=== PATIENT | female | born 1945 | race Caucasian/White ===

== ENCOUNTER 2023-09-10 13:33 | Inpatient (IN) | payer MEDICARE, SELFPAY ==
[2023-09-09 20:12] VITALS: BP 143/98
[2023-09-09 20:55] VITALS: BP 130/74
[2023-09-09 21:00] VITALS: BP 109/72
[2023-09-09 21:02] VITALS: BMI 33.0
[2023-09-09 21:03] VITALS: BP 130/74
[2023-09-09 22:00] VITALS: BP 122/65
--- NOTE | 2023-09-09 22:35 | ED.GENMED ---
History of Present Illness
General
Chief Complaint: Fatigue
Source: patient and family (Son)
Exam Limitations: dementia (Able to answer some questions)
Time Seen by Provider: 09/09/23 22:01
Travel History
Have you had any contact with someone who has COVID-19?: No
Do you have any symptoms of coronavirus? Fever > 100 degrees, chills, cough, shortness of breath, sore throat, loss of taste or smell, muscle aches, or headache?: No
History of Present Illness
History of Present Illness:
This is a 78 year old female that is brought in by ambulance. Son states that they have been getting Cortisone injections in patient knee's. states that she had a shot in both knee's about 5 days ago and was going ok. Then in the past 48-72 hours
the patent is very fatigued and was unable to get OOB and walk. States that she has had a cough for the past 1.5 weeks. Denies any fever, chills, chest pain, SOB, abd pain, nausea, vomiting, diarrhea, headache, dizziness, urinary burning.
Past History
Past History
ED Past Medical History: Hypercholesterolemia and Other (Dementia, )
ED Past Surgical History: Appendectomy, Gynecological (hysterectomy), Orthopedic (Hip replacement) and Other (Lasik)
Social History
Tobacco: Former smoker
Alcohol: Occasional
Personal:
Living: with family
Review of Systems
Review of Systems
Other source history: family
All Other Systems: ROS reviewed and negative except as documented in HPI and ROS
Constitutional: Reports no symptoms; Denies fever or chills
EENT: Reports no symptoms
Respiratory: Reports cough; Denies trouble breathing
Cardiac: Reports no symptoms; Denies chest pain
ABD/GI: Reports no symptoms; Denies abdominal pain, nausea, vomiting or diarrhea
: Reports no symptoms; Denies dysuria, frequency or urgency
Musculoskeletal: Reports other (Difficulty walking)
Skin: Reports no symptoms
Neurological: Reports no symptoms; Denies dizzy or headache
Psychiatric: Reports no symptoms
Phy Exam
General Physical Exam
General Presentation: no apparent distress
General age: appears stated age
General Skin: warm and dry
General Habitus: elderly
General Mental: usual mental status
General Hydration: appears well hydrated
ENT Exam
ENT Exam: TM's normal, pharynx normal and neck supple
Eye Exam
Eye Exam: EOMI
Cardiovascular Exam
Cardiovascular Exam: regular rate/rhythm, no edema and normal peripheral pulses
Pulmonary Exam
Pulmonary Exam: no respiratory distress, chest non tender, no rhonchi and other (occasional exp wheezing noted with fine crackles at right base, Dry cough noted)
Gastrointestinal Exam
Gastrointestinal Exam: normal bowel sounds, non tender, soft, no organomegaly, no pulsatile mass and non distended
Musculoskeletal Exam
Musculoskeletal Exam: full ROM, no edema and other (Negative for discomfort with flexion of the knee's)
Skin Exam
Skin Exam: normal color, warm/dry, no rash and no petechia
Psychiatric Exam
Psychiatric Exam: normal mood/affect
Course
Orders/Labs/Results
Orders:
Orders
09/09/23 22:34
Urinalysis Reflex To Culture Urgent
CR Chest - 2 Views Urgent
Comment:
Reason For Exam: Cough
09/09/23 22:41
Electrocardiogram (*1) Urgent
Reason for Study: Fatigue / Weakness
EKG- Treatment ONCE
COVID-19 Antigen Urgent
Source: Nasal Swab
Complete Blood Count/With Diff Urgent
Comprehensive Metabolic Panel Urgent
Troponin I Urgent
Abnormal Lab Results
09/09/23
22:41
WBC 14.0 H 10^3/uL
(4.8-10.8)
RBC 4.03 L 10^6/uL
(4.20-5.40)
Hgb 11.6 L g/dL
(12.0-16.0)
Hct 34.4 L %
(37.0-47.0)
Abs Immat Gran (auto) 0.1 H 10^3/uL
(0-0.05)
Absolute Neuts (auto) 12.0 H 10^3/uL
(1.4-6.5)
Absolute Lymphs (auto) 1.0 L 10^3/uL
(1.2-3.4)
Absolute Monos (auto) 0.8 H 10^3/uL
(0.1-0.6)
Neutrophils % 85.4 H %
(42.2-75.2)
Lymphocytes % 7.4 L %
(20.5-51.1)
Sodium 131 L mmol/L
(135-145)
AST 40 H U/L
(14-36)
Alkaline Phosphatase 152 H U/L
(38-126)
09/09/23 22:41
09/09/23 22:41
Leukocytosis, H/H slightly low. Sodium slightly low. AST elevation. Alk phos mildly elevated. COVID negative,
Vital Signs
Initial and Last Documented VS:
Initial Vital Signs
Temp Pulse Resp BP Pulse Ox
98.5 F 92 18 143/98 93
09/09/23 20:12 09/09/23 20:12 09/09/23 20:12 09/09/23 20:12 09/09/23 20:12
Last Documented Vital Signs
Temp Pulse Resp BP Pulse Ox
98.5 F 80 25 122/65 92
09/09/23 20:12 09/09/23 22:15 09/09/23 22:15 09/09/23 22:00 09/09/23 21:30
MDM/Problems Addressed
Differential Diagnosis Includes:
COVID, PNA, UTI
MDM/Problems Addressed:
This is a 78 year old female that comes in with c/o difficulty walking. Son states that she had injection both knee's 5 days ago and was going ok. Then in the past 48-72 hours the patient has now been unable to walk and is very fatigued
Will check labs. Urine. COVID and get chest x-ray.
Back into see patient and family. Explained that she has a left lower lobe Pneumonia. The fact that patient was unable to get around and not able to walk, will admit patient as patient lives with and he is unable to lift patient. Will start
IV antibiotics. Will notify Hospitalist.
Chronic conditions affecting care:
NA
Acute Exacerbation and/or Progression of Chronic Illness:
NA
*Radiology
Radiology exam reviewed: preliminary read by ED provider (Chest- Left lower lobe Pneumonia. )
*Pulse Oximetry
Patient hypoxic: no
*EKG
Interpreted by ED Provider?: Yes
Heart Rate: 77
Rate: normal
Rhythm: sinus
Honaker: normal axis
Interval: normal interval
QRS Pattern: normal QRS
Ischemia: no ischemia
*Power Plant Supervisor Interpretation
Rate: Power Plant Supervisor- N/A
*Critical Care Note
Total Time (30-74mins, 75-104mins- exclusive of procedures): Not Applicable
ED Attending Note
-
Portions of this chart may have been created with voice recognition software.� Occasional wrong word or��sound alike� substitutions may have occurred due to the inherent limitations of voice recognition software.
Discharge Plan
Departure
Patient Disposition: Admit
Date of Disposition: 09/10/23
Time of Disposition: 00:25
Admit to: Med/Surg
Presentation/result/management discussed w/ accepting MD/DO: Hospitalist
Patient with high blood pressure during this ER visit?: No
Condition: Good
Covid-19: Negative COVID-19
Discharge Problem:
Left lower lobe pneumonia, Weakness
Referrals:
Colden,Sindhu Estefani, DOUGH CUTTER [Family Provider] -
Interventions
Interventions:
*Risk Screen - Suicide Last Done: 09/09/23 20:12
*General Assessment Last Done: 09/09/23 20:12
*Neglect/Abuse Screening Last Done: 09/09/23 20:12
ED- Fall Risk Assessment Last Done: 09/09/23 20:12
*ED COVID-19 Vaccine History Last Done: 09/09/23 20:12
[2023-09-09 22:52] LABS: % Basophils 0.3 % (0-2); % Eosinophils 0.8 % (0-6); % Immature Granulocytes 0.5 % (0-0.5); % Lymphocytes 7.4 % (20.5-51.1); % Monocytes 5.6 % (1.7-9.3); % Neutrophils 85.4 % (42.2-75.2); Absolute Eosinophils 0.1 10^3/uL (0-0.7); Absolute Immature Granulocytes 0.1 10^3/uL (0-0.05); Absolute Monocytes 0.8 10^3/uL (0.1-0.6); Hematocrit 34.4 % (37.0-47.0); Hemoglobin 11.6 g/dL (12.0-16.0); Mean Corp Hgb Conc. 33.7 g/dL (33.0-37.0); Mean Corpuscular Hgb 28.8 pg (27.0-31.0); Mean Corpuscular Volume 85.4 fL (81.0-99.0); Mean Platelet Volume 10.3 fL (7.4-10.4); Nucleated Red Blood Cells % 0 %; Platelet Count 367 10^3/uL (130-400); Red Blood Cell Count 4.03 10^6/uL (4.20-5.40); Red Cell Dist. Width 14.1 % (11.5-14.5)
[2023-09-09 23:00] VITALS: BP 108/53
[2023-09-09 23:02] LABS: ALT (SGPT) 21 U/L (0-35); AST (SGOT) 40 U/L (14-36); Albumin 3.7 g/dl (3.5-5.0); Alkaline Phosphatase 152 U/L (38-126); Blood Urea Nitrogen 12 mg/dl (7-17); Calcium 9.1 mg/dl (8.4-10.2); Carbon Dioxide 22 mmol/L (22-30); Chloride 101 mmol/L (98-107); Estimated Creatinine Clearance 72 ml/min; Glucose 81 mg/dl (70-99); Sodium 131 mmol/L (135-145); Total Bilirubin 0.7 mg/dl (0.2-1.3); Total Protein 6.4 g/dl (6.3-8.2); eGFR > 60.00
[2023-09-09 23:05] LABS: COVID-19 Antigen Negative (Negative)
[2023-09-10] VITALS (14 sets, daily range): BP systolic 62–144; BP diastolic 44–101; PULSE 81; O2SAT 95; BMI 34.2
[2023-09-10] MEDS: ROCEPHIN 1000 MG IV (00:53)
[2023-09-10 01:10] LABS: Lactic Acid 0.8 mmol/L (0.7-2.0)
[2023-09-10] MEDS: ZITHROMAX INFUSION 250 IV (01:10)
[2023-09-10 01:20] LABS: Troponin I < 0.012 ng/ml
--- NOTE | 2023-09-10 04:03 | HPS.HSE ---
Family Physician
-
Family Physician: Sindhu Conley
Chief Complaint
-
Fatigue
History of Present Illness
The patient is a 78 yo woman with PMH significant for dementia and HLD, who presents to ED due to worsening fatigue and unable to ambulate due to generalized weakness. History mostly obtained from ED provider as son is no longer in the room
currently. Patient has dementia, recently had cortisone injections in knees. She has had a cough for the past 1.5 weeks. Unable to obtain further ROS at this time. No known fever, chills, CP, SOB, n/v/d, per review of chart and patient without
complaints at this time.
Medical History
Past Medical History
Past Medical History: Reports Hypercholesterolemia and Other (Dementia)
Past Surgical History: Reports Appendectomy, Gynocological (HUYEN), Orthopedic (Hip replacement) and Other (Lasik)
Social History
Tobacco: Former Smoker
Alcohol: Occasional
Personal:
Living: With Family
Family History
Family History: Not pertinent
Allergies / Home Medications
Allergies reflects when Allergies were last updated in [facility].
Home Medications with original date entered in [facility]
Allergy/Medication List:
Allergies
Allergy/AdvReac Type Severity Reaction Status Date / Time
No Known Allergies Allergy Unverified 09/09/23 20:10
Cannot perform med rec at this time, patient does not know medications
Review of Systems
-
Unable to obtain full review of systems at this time due to: Dementia
Physical Exam
Vital Signs
Vital Signs
Temp Pulse Resp BP Pulse Ox
99.5 F 81 22 108/53 92
09/10/23 00:09 09/10/23 03:30 09/10/23 03:30 09/09/23 23:00 09/10/23 02:45
Physical Exam
General: Well Developed, Well Nourished and No Apparent Distress
HEENT: NormoCephalic, Anicteric and Moist mucous membranes
Respiratory: Clear
Cardiac: S1/S2 and Regular Rhythm
GI: Soft, Non Tender and Non Distended
Musculoskeletal: No Clubbing, No Cyanosis and No Edema
Skin: Warm and Dry
Neuro: Awake and Alert
Psych: Calm
Laboratory Results
-
09/09/23 22:41
09/09/23 22:41
Laboratory Results
Lactic Acid 0.8 mmol/L (0.7-2.0) 09/10/23 00:24
Total Bilirubin 0.7 mg/dl (0.2-1.3) 09/09/23 22:41
AST 40 U/L (14-36) H 09/09/23 22:41
ALT 21 U/L (0-35) 09/09/23 22:41
Alkaline Phosphatase 152 U/L (38-126) H 09/09/23 22:41
Troponin I < 0.012 ng/ml 09/10/23 00:24
Impression/Plan
-
IMPRESSION:
#LLL Pneumonia, community acquired, associated with weakness
-WBC 14.0
-IV abx
-O2 as needed
-supportive care
-cultures
#Ambulatory dysfunction
-PT evaluation
#Dementia
Medication reconciliation will have to completed in the am
DVT proph
Full Code at this time
[2023-09-10] MEDS: NSS 1000 IV ×2 (06:00→17:44)
[2023-09-10 06:21] LABS: % Basophils 0.4 % (0-2); % Eosinophils 1.4 % (0-6); % Immature Granulocytes 0.6 % (0-0.5); % Lymphocytes 14.7 % (20.5-51.1); % Neutrophils 75.9 % (42.2-75.2); Absolute Eosinophils 0.1 10^3/uL (0-0.7); Absolute Immature Granulocytes 0.1 10^3/uL (0-0.05); Absolute Lymphocytes 1.5 10^3/uL (1.2-3.4); Absolute Monocytes 0.7 10^3/uL (0.1-0.6); Absolute Neutrophils 7.8 10^3/uL (1.4-6.5); Hematocrit 32.9 % (37.0-47.0); Hemoglobin 10.7 g/dL (12.0-16.0); Mean Corp Hgb Conc. 32.5 g/dL (33.0-37.0); Mean Corpuscular Hgb 27.9 pg (27.0-31.0); Mean Corpuscular Volume 85.9 fL (81.0-99.0); Mean Platelet Volume 9.6 fL (7.4-10.4); Nucleated Red Blood Cells % 0 %; Platelet Count 337 10^3/uL (130-400); Red Blood Cell Count 3.83 10^6/uL (4.20-5.40); Red Cell Dist. Width 14.2 % (11.5-14.5); White Blood Cell Count 10.3 10^3/uL (4.8-10.8)
[2023-09-10 06:45] LABS: ALT (SGPT) 19 U/L (0-35); AST (SGOT) 42 U/L (14-36); Albumin 3.1 g/dl (3.5-5.0); Alkaline Phosphatase 121 U/L (38-126); Blood Urea Nitrogen 13 mg/dl (7-17); Calcium 9.1 mg/dl (8.4-10.2); Carbon Dioxide 20 mmol/L (22-30); Chloride 103 mmol/L (98-107); Estimated Creatinine Clearance 84 ml/min; Glucose 93 mg/dl (70-99); Potassium 3.8 mmol/L (3.5-5.1); Sodium 134 mmol/L (135-145); Total Bilirubin 0.6 mg/dl (0.2-1.3); Total Protein 5.7 g/dl (6.3-8.2); eGFR > 60.00
--- NOTE | 2023-09-10 08:00 | EDRN ---
the pt was received from previous wellness trainer RN, the pt is resting in stretcher in the lowest position, side rails up x2, call christine within reach, HOB slightly elevated, no s/s of distress, VS WNL, IVF running, PIV flushed with positive blood
return, awaiting to get a bed on the floor for the pt, will continue to monitor the pt closely
--- NOTE | 2023-09-10 08:22 | PHANOTE ---
Patient unable to complete medication review. Contacted primary contact, daughter, to review and update medication list. Medications verified with Dr. Braga and eCW medication list from PCP visit.
--- NOTE | 2023-09-10 10:48 | EDRN ---
this RN entered the pts room and asked if the pt needed anything, the pt stated that the, 'thinks i went to the bathroom', this RN and Vi RN cleaned the pt, the pt urinated and had a medium sized bowel movement, the pts gown, linens, and pad
were changed, the pt was repositioned in the stretcher for comfort, no s/s of distress, no c/o pain, no c/o chest pain, no c/o SOB, VS WNL, will continue to monitor the pt closely
--- NOTE | 2023-09-10 10:55 | EDRN ---
speech therapy currently at the pts bedside
--- NOTE | 2023-09-10 11:16 | PTOTSP ---
Speech Therapy Evaluation:
Initial speech therapy assessment completed. Patient presented with oropharyngeal swallow that was within functional limits at bedside with no overt s/s aspiration observed.
Recommend:
1) Continue regular solid, thin liquid diet
2) Meds whole with thins as tolerated
3) General aspiration precautions
4) ST to f/u pending hospitalization to ensure diet tolerance given PNA concern on recent imaging
--- NOTE | 2023-09-10 12:57 | EDRN ---
this RN ordered lunch for the pt and she is stating to this RN, 'I don't want lunch i am not hungry don't bring food in here', the pt is resting in stretcher in the lowest position, side rails up x2, call christine within reach, HOB elevated, no s/s of
distress, VS WNL, will continue to monitor the pt closely
--- NOTE | 2023-09-10 14:56 | EDRN ---
the receiving unit was called and notified that paper report was going to be tubed up
--- NOTE | 2023-09-10 15:02 | W.PN.HOSP.TC ---
Addendum entered and electronically signed by Jesús Crabtree MD 09/10/23 18:20:
Patient seen and examined
Discussed with resident
Agree with assessment and plan
Impression/plan:
78 years old with advanced dementia, nonverbal presents with left lower lobe pneumonia. Community-acquired versus reasonable aspiration risk.
Stable respiratory status with no requirements for supplemental oxygen.
Stable hemodynamically with no evidence of systemic infection
Continue antibiotics ceftriaxone/Zithromax.
Speech and swallow evaluation.
Dementia
Ambulatory dysfunction.
Physical therapy evaluation.
Original Note:
Today's Communication/Plan
-
See A/P
Continue Abx
Speech therapy Eval
PT eval
Assessment / Plan
Assessment / Plan
Assessment / Plan
Impression:
Presentation with cough and fatigue
Ambulatory dysfunction
Pneumonia, community acquired
Conditions Prior to Admission
Hypothyroidism
Hypercholesterolemia
Dementia
Plan
-Left Lower Lobe Pneumonia, Community acquired
IV antibiotics
Supportive Care
Cultures
Pulse Ox on presentation 93, O2 as needed
-Aspiration Risk
Speech therapy Evaluation
Aspiration Precautions
-Ambulatory Dysfunction
PT Evaluation
-Hypercholesterolemia
Continue Rosuvastatin
-Hypothyroidism
Continue Levothyroxine
Full Code
DVT prophylaxis Levonox
Anticipated Discharge: 24 - 48 hours
Subjective/Interval History
-
Date of Service: September 10, 2023
Objective Data
-
Labs:
Laboratory Results
09/10/23
06:01
WBC 10.3
Hgb 10.7 L
Hct 32.9 L
Plt Count 337
Sodium 134 L
Potassium 3.8
Chloride 103
Carbon Dioxide 20 L
BUN 13
Creatinine 0.6
Glucose 93
Calcium 9.1
Total Bilirubin 0.6
AST 42 H
ALT 19
Alkaline Phosphatase 121
Vital Signs:
Vital Signs
Temp Pulse Resp BP Pulse Ox
97.8 F 86 16 144/61 99
09/10/23 14:56 09/10/23 14:56 09/10/23 14:56 09/10/23 14:56 09/10/23 14:56
Review of Systems
-
Unable to obtain full review of systems at this time due to: Dementia
Physical Exam
-
General: Well Developed, Well Nourished and No Apparent Distress
HEENT: Normocephalic, Atraumatic and Moist Mucous Membranes
Respiratory: Clear to Auscultation
Cardiac: Regular Rhythm and S1/S2
GI: Soft, Nontender and Nondistended
Musculoskeletal: No Clubbing, No Cyanosis and No Edema
Skin: Warm and Dry
Neuro: Awake and Alert
Psych: Calm
[2023-09-10] MEDS: LOVENOX 40 MG SC (17:34)
[2023-09-11] MEDS: ROCEPHIN 1000 MG IV (00:42)
[2023-09-11] MEDS: STERILE WATER FOR INJECTION 10 ML IV (00:42)
[2023-09-11] MEDS: ZITHROMAX INFUSION 250 IV (03:26)
[2023-09-11 07:30] VITALS: BP 150/92
[2023-09-11 07:50] LABS: % Basophils 0.6 % (0-2); % Eosinophils 2.4 % (0-6); % Immature Granulocytes 0.8 % (0-0.5); % Lymphocytes 16.2 % (20.5-51.1); % Monocytes 6.2 % (1.7-9.3); % Neutrophils 73.8 % (42.2-75.2); Absolute Eosinophils 0.2 10^3/uL (0-0.7); Absolute Immature Granulocytes 0.1 10^3/uL (0-0.05); Absolute Lymphocytes 1.2 10^3/uL (1.2-3.4); Absolute Monocytes 0.4 10^3/uL (0.1-0.6); Absolute Neutrophils 5.2 10^3/uL (1.4-6.5); Hematocrit 30.8 % (37.0-47.0); Hemoglobin 9.9 g/dL (12.0-16.0); Mean Corp Hgb Conc. 32.1 g/dL (33.0-37.0); Mean Corpuscular Hgb 28.4 pg (27.0-31.0); Mean Corpuscular Volume 88.3 fL (81.0-99.0); Nucleated Red Blood Cells % 0 %; Platelet Count 335 10^3/uL (130-400); Red Blood Cell Count 3.49 10^6/uL (4.20-5.40); Red Cell Dist. Width 14.1 % (11.5-14.5); White Blood Cell Count 7.1 10^3/uL (4.8-10.8)
[2023-09-11 08:28] LABS: Blood Urea Nitrogen 11 mg/dl (7-17); Calcium 8.7 mg/dl (8.4-10.2); Carbon Dioxide 20 mmol/L (22-30); Chloride 107 mmol/L (98-107); Estimated Creatinine Clearance 80 ml/min; Glucose 100 mg/dl (70-99); Potassium 3.5 mmol/L (3.5-5.1); Sodium 134 mmol/L (135-145); eGFR > 60.00
[2023-09-11] MEDS: NSS 1000 IV (10:44)
--- NOTE | 2023-09-11 10:51 | W.PN.HOSP.TC ---
Addendum entered and electronically signed by Jesús Crabtree MD 09/11/23 17:51:
Patient seen and examined
Discussed with resident
Discussed with nursing and [id number] as well as son over the phone.
Pneumonia, community-acquired.
Stable respiratory status
No evidence for systemic disease or sepsis.
Continue antibiotics ceftriaxone/Zithromax with plan to transition to oral regimen to complete 5 to 7 days course of therapy.
Speech and swallow evaluation noted. Diet has been advanced with aspiration precautions.
Physical therapy evaluation. Overall given acute infection as well as cognitive status would benefit from [facility] facility debilitation.
Original Note:
Today's Communication/Plan
-
Patient tolerating Oral Diet.
Switch to Zithromax 500mg PO daily today.
Continue IV ceftriaxone for another day.
Stable hemodynamically with no evidence of systemic infection.
Assessment / Plan
Assessment / Plan
Assessment / Plan
Impression:
Presentation with cough and fatigue
Ambulatory dysfunction
Pneumonia, community acquired
Conditions Prior to Admission
Hypothyroidism
Hypercholesterolemia
Dementia
Plan
-Left Lower Lobe Pneumonia, Community acquired
Switch to Oral Zithromax.
Continue IV ceftriaxone for another day.
Supportive Care
Cultures
Stable respiratory status with no requirements for supplemental oxygen.
-Aspiration Risk
Speech therapy Evaluation
Aspiration Precautions
-Dementia
-Ambulatory Dysfunction
PT Evaluation
-Hypercholesterolemia
Continue Rosuvastatin
-Hypothyroidism
Continue Levothyroxine
Full Code
DVT prophylaxis Levonox
Anticipated Discharge: > 48 hours
Subjective/Interval History
-
Date of Service: September 11, 2023
Objective Data
-
Labs:
Laboratory Results
09/11/23
06:35
WBC 7.1
Hgb 9.9 L
Hct 30.8 L
Plt Count 335
Sodium 134 L
Potassium 3.5
Chloride 107
Carbon Dioxide 20 L
BUN 11
Creatinine 0.6
Glucose 100 H
Calcium 8.7
Vital Signs:
Vital Signs
Temp Pulse Resp BP Pulse Ox
98.0 F 73 16 150/92 96
09/11/23 07:30 09/11/23 07:30 09/11/23 07:30 09/11/23 07:30 09/11/23 07:30
I&O
09/10/23 09/11/23 09/12/23
06:59 06:59 06:59
Intake Total 240 / 240 1290 / 1290
Balance 240 / 240 1290 / 1290
Review of Systems
-
Unable to obtain full review of systems at this time due to: Dementia
Physical Exam
-
General: Well Developed, Well Nourished and No Apparent Distress
HEENT: Normocephalic, Atraumatic and Moist Mucous Membranes
Respiratory: Clear to Auscultation
Cardiac: Regular Rhythm and S1/S2
GI: Soft, Nontender and Nondistended
Musculoskeletal: No Clubbing, No Cyanosis and No Edema
Skin: Warm and Dry
Neuro: Awake and Alert
Psych: Calm
[2023-09-11 11:51] VITALS: BP 132/71; PULSE 69
[2023-09-11 15:23] VITALS: BP 128/92
--- NOTE | 2023-09-11 16:20 | CM ---
slot shift manager reviewed patient's chart and met with patient and patient lives [facility] her [facility] Patient was independent with adl's and ambulation, patient has a cane and walker that she rarely used,
patient's spouse has dementia and Parkinson's, disability case manager spoke with patient and daughter in law and recommendation is for skilled placement options reviewed with patient and she has selected [facility].
Plan; Skilled placement at [facility].
[2023-09-11] MEDS: LOVENOX 40 MG SC (19:04)
[2023-09-11 23:17] VITALS: BP 124/75
[2023-09-12] MEDS: STERILE WATER FOR INJECTION 10 ML IV ×2 (00:01→23:46)
[2023-09-12] MEDS: ROCEPHIN 1000 MG IV ×2 (00:01→23:46)
[2023-09-12] MEDS: SYNTHROID 88 MCG PO (05:45)
[2023-09-12 07:30] VITALS: BP 140/76
[2023-09-12] MEDS: DESENEX/MITRAZOL/ZEASORB 1 APPLIC TOPICAL ×2 (09:40→21:04)
[2023-09-12] MEDS: VITAMIN D3 (cholecalciferol) 25 MCG PO (09:49)
[2023-09-12] MEDS: ZITHROMAX 500 MG PO (09:49)
[2023-09-12] MEDS: CELEXA 20 MG PO (09:50)
[2023-09-12] MEDS: THERAGRAN 1 TABLET PO (09:50)
[2023-09-12] MEDS: CRESTOR 20 MG PO (09:50)
[2023-09-12] MEDS: NAMENDA 5 MG PO (09:50)
[2023-09-12] MEDS: TYLENOL 650 MG PO (12:36)
--- NOTE | 2023-09-12 12:36 | CM ---
Plan is for skilled placement at [facility], residential case manager reached out to [facility] and still waiting on a determination from [facility], patient will then need Auth for skilled placement.
Plan; Skilled placement at [facility] if accepted.
[2023-09-12 15:55] VITALS: BP 143/90
--- NOTE | 2023-09-12 17:59 | W.PN.HOSP.TC ---
Today's Communication/Plan
-
Continue antibiotics
Ongoing disposition efforts with plan for custodial facility rehab
Assessment / Plan
Assessment / Plan
Assessment / Plan
Impression:
Presentation with cough and fatigue
Ambulatory dysfunction
Pneumonia, community acquired
Conditions Prior to Admission
Hypothyroidism
Hypercholesterolemia
Dementia
Plan
-Left Lower Lobe Pneumonia, Community acquired
Switch to Oral Zithromax.
Continue IV ceftriaxone for another day.
Supportive Care
Cultures
Stable respiratory status with no requirements for supplemental oxygen.
-Aspiration Risk
Speech therapy Evaluation
Aspiration Precautions
-Dementia
-Ambulatory Dysfunction
PT Evaluation
-Hypercholesterolemia
Continue Rosuvastatin
-Hypothyroidism
Continue Levothyroxine
Full Code
DVT prophylaxis Levonox
Anticipated Discharge: Within 24 hours
Subjective/Interval History
-
Date of Service: September 12, 2023
Objective Data
-
Vital Signs:
Vital Signs
Temp Pulse Resp BP Pulse Ox
98.3 F 75 18 143/90 96
09/12/23 15:55 09/12/23 15:55 09/12/23 15:55 09/12/23 15:55 09/12/23 15:55
I&O
09/11/23 09/12/23 09/13/23
06:59 06:59 06:59
Intake Total 240 / 240 2069
Balance 240 / 240 2069
Physical Exam
-
General: Well Developed and No Apparent Distress
HEENT: Normocephalic, Atraumatic and Moist Mucous Membranes
Respiratory: Clear to Auscultation
Cardiac: Regular Rhythm and S1/S2; Negative Murmur, Rub or Gallop
GI: Soft, Nontender, Nondistended and Normal Bowel Sounds; Negative Organomegaly
Rectal: Deferred by Provider
Musculoskeletal: No Clubbing, No Cyanosis and No Edema
Skin: Negative Rash
Neuro: Nonfocal/Grossly Intact
[2023-09-12] MEDS: LOVENOX 40 MG SC (18:20)
[2023-09-12 23:00] VITALS: BP 131/64
[2023-09-13] MEDS: SYNTHROID 88 MCG PO (06:03)
[2023-09-13 07:30] VITALS: BP 150/64
[2023-09-13] MEDS: NAMENDA 5 MG PO (09:11)
[2023-09-13] MEDS: CRESTOR 20 MG PO (09:11)
[2023-09-13] MEDS: ZITHROMAX 500 MG PO (09:11)
[2023-09-13] MEDS: CELEXA 20 MG PO (09:12)
[2023-09-13] MEDS: VITAMIN D3 (cholecalciferol) 25 MCG PO (09:12)
[2023-09-13] MEDS: DESENEX/MITRAZOL/ZEASORB 1 APPLIC TOPICAL (09:12)
[2023-09-13] MEDS: THERAGRAN 1 TABLET PO (09:12)
--- NOTE | 2023-09-13 12:02 | CM ---
Addendum entered by Anaya Rahman 09/13/23 13:57:
[facility]
Original Note:
lab manager received Auth from [facility] patient has been approved for 5 days skilled, 09/13- NRD 09/17, Auth [id number], follow up with Sindhu Jacinto, , patient's daughter in law to assist with transport.
[facility]
Report [id number]
--- NOTE | 2023-09-13 12:16 | W.DS.TRANS ---
DC Summary - Enterprise Application Analyst
-
Discharge Instructions:
Discharge Diagnosis/Procedures Pneumonia
Diet Regular
Instructions:
Stand-Alone Forms:
Changes to Home Medications: No
Discharge Medications:
DC Medications w/original date entered in [facility]
cholecalciferol (vitamin D3) 25 mcg (1,000 unit) capsule (Vitamin D3) 25 mcg PO DAILY supplement 09/10/23
citalopram 20 mg tablet 20 mg PO DAILY Mental Health/Anxiety 09/10/23
ferrous sulfate 325 mg (65 mg iron) tablet 325 mg PO DAILY supplement 09/10/23
levothyroxine 88 mcg tablet 88 mcg PO DAILY@0700 hypothyroidism 09/10/23
memantine 5 mg tablet 5 mg PO DAILY cognition 09/10/23
methylcellulose (laxative) 500 mg tablet (Citrucel) 500 mg PO DAILY constipation 09/10/23
multivitamin-ferrous fumarate-folic acid 18 mg-400 mcg tablet (Centrum Women) 1 tab PO DAILY supplement 09/10/23
rosuvastatin 20 mg tablet 20 mg PO DAILY high cholesterol 09/10/23
azithromycin 250 mg tablet 500 mg PO DAILY #3 tabs 09/13/23
cefuroxime axetil 500 mg tablet 500 mg PO Q12H #6 tabs 09/13/23
Home Medication Changes
Pending Results: No
[2023-09-13] MEDS: FLUZONE HIGH-DOSE QUAD 2023-24 0.699999999999999956 ML IM (12:46)
--- NOTE | 2023-09-13 14:30 | W.DCSUMMARY ---
Documented by User: Milagro Cantu MD, Resident 09/13/23 14:47
Discharge Summary
Discharge Data
Date of Admission: 09/10/23
Date of Discharge: 09/13/23
-
Pending Results: No
Hospital Course
DISCHARGE DIAGNOSIS
1. Left Lower Lobe Pneumonia
2. Hypercholesterolemia
3. Hypothyroidism
4. Dementia
BRIEF HOSPITAL COURSE: This is a 78year old female with PMH significant for dementia and Hypercholesterolemia who presented to ED with her son for worsening fatigue, generalized weakness and cough. Her son states that patient has had an ongoing
cough for the past 1.5 weeks. Patient denies any fever, chills, shortness of breath, nausea and vomiting. Patient has dementia and recently had cortisone injections in the knees 5 days before presenting to the ED. On admission, patient was afebrile
and hemodynamically stable with no requirements for supplemental oxygen. Evaluation with Chest Xray showed parenchymal opacity within the left lower lobe, which very likely represents pneumonia. Patient was started antibiotics Ceftriaxone/Zithromax
with improvement in symptoms over the course of her hospital stay.
Hypercholesterolemia: The patient will be continued on current medication regimen including Rosuvastatin
Hypothyroidism: The patient will be continued on current medication regimen including Levothyroxine.
Next, on the date of discharge, the patient's vital signs: Temperature is 99.1 F, Heart Rate is 75 , Blood pressure 150/64, Respiratory rate 18, Pulse Ox is 95 on room air
PHYSICAL EXAMINATION:� She is alert, awake. Head is atraumatic, normocephalic. Neck is supple. Chest is clear to auscultation. Heart is regular without gallops or murmurs. Abdomen is soft, nondistended with normal bowel sounds. Extremities show no
peripheral edema.
Discharge Plan
-
Patient Disposition: Home (Routine Discharge)
Discharge Diagnosis/Procedures: Pneumonia
Condition: Good
Diet: Regular
Referrals:
Sindhu Conley CRNP [Family Provider] -
Prescriptions:
New
azithromycin 250 mg Tablet
500 mg PO DAILY Qty: 3 0RF
cefuroxime axetil 500 mg tablet
500 mg PO Q12H Qty: 6 0RF
Continued
levothyroxine 88 mcg tablet
88 mcg PO DAILY@0700
citalopram 20 mg tablet
20 mg PO DAILY
ferrous sulfate 325 mg (65 mg iron) Tablet
325 mg PO DAILY
Citrucel 500 mg Tablet
500 mg PO DAILY
cholecalciferol (vitamin D3) [Vitamin D3] 25 mcg (1,000 unit) Capsule
25 mcg PO DAILY
rosuvastatin 20 mg tablet
20 mg PO DAILY
memantine 5 mg tablet
5 mg PO DAILY
Centrum Women 18-400 mg-mcg Tablet
1 tab PO DAILY
Discontinued
meloxicam 15 mg tablet
15 mg PO DAILY
Discharge Orders:
Discharge Patient (As Directed); Ordered 09/13/23
Ordered By: Jesús Crabtree
Discharge Date and Time
Discharge Date/Time: 09/13/23 17:45

Documented by User: Jesús Crabtree MD 09/19/23 14:52
Discharge Summary
Discharge Data
Date of Admission: 09/10/23
Date of Discharge: 09/19/23
Hospital Course
DISCHARGE DIAGNOSIS
1. Left Lower Lobe Pneumonia
2. Hypercholesterolemia
3. Hypothyroidism
4. Dementia
5. Hyponatremia
BRIEF HOSPITAL COURSE: This is a 78year old female with PMH significant for dementia and Hypercholesterolemia who presented to ED with her son for worsening fatigue, generalized weakness and cough. Her son states that patient has had an ongoing
cough for the past 1.5 weeks. Patient denies any fever, chills, shortness of breath, nausea and vomiting. Patient has dementia and recently had cortisone injections in the knees 5 days before presenting to the ED. On admission, patient was afebrile
and hemodynamically stable with no requirements for supplemental oxygen. Evaluation with Chest Xray showed parenchymal opacity within the left lower lobe, which very likely represents pneumonia. Patient was started antibiotics Ceftriaxone/Zithromax
with improvement in symptoms over the course of her hospital stay.
Hypercholesterolemia: The patient will be continued on current medication regimen including Rosuvastatin
Hypothyroidism: The patient will be continued on current medication regimen including Levothyroxine.
Next, on the date of discharge, the patient's vital signs: Temperature is 99.1 F, Heart Rate is 75 , Blood pressure 150/64, Respiratory rate 18, Pulse Ox is 95 on room air
PHYSICAL EXAMINATION:� She is alert, awake. Head is atraumatic, normocephalic. Neck is supple. Chest is clear to auscultation. Heart is regular without gallops or murmurs. Abdomen is soft, nondistended with normal bowel sounds. Extremities show no
peripheral edema.
Discharge Plan
-
Patient Disposition: Home (Routine Discharge)
Discharge Diagnosis/Procedures: Pneumonia
Condition: Good
Diet: Regular
Referrals:
Sindhu Conley CRNP [Family Provider] -
Prescriptions:
New
azithromycin 250 mg Tablet
500 mg PO DAILY Qty: 3 0RF
cefuroxime axetil 500 mg tablet
500 mg PO Q12H Qty: 6 0RF
Continued
levothyroxine 88 mcg tablet
88 mcg PO DAILY@0700
citalopram 20 mg tablet
20 mg PO DAILY
ferrous sulfate 325 mg (65 mg iron) Tablet
325 mg PO DAILY
Citrucel 500 mg Tablet
500 mg PO DAILY
cholecalciferol (vitamin D3) [Vitamin D3] 25 mcg (1,000 unit) Capsule
25 mcg PO DAILY
rosuvastatin 20 mg tablet
20 mg PO DAILY
memantine 5 mg tablet
5 mg PO DAILY
Centrum Women 18-400 mg-mcg Tablet
1 tab PO DAILY
Discontinued
meloxicam 15 mg tablet
15 mg PO DAILY
Discharge Orders:
Discharge Patient (As Directed); Ordered 09/13/23
Ordered By: Jesús Crabtree
Discharge Date and Time
Discharge Date/Time: 09/13/23 17:45
--- NOTE | 2023-09-13 14:37 | PN.CDI ---
CDI
- -
CDI:
Physician Documentation Request
Admit Date: 09/10/23 13:33
Dear Doctor Bro,
Please review the following and provide your response in the progress notes.
Clinical Indicators:
Laboratory Tests
09/09/23 09/10/23 09/11/23
22:41 06:01 06:35
Sodium 131 L 134 L 134 L
Based on the above, please clarify in the progress notes, the appropriate diagnosis, if significant, that supports the above abnormalities and additional evaluation, monitoring and/or treatment rendered:
Hyponatremia
Abnormal lab value, clinically insignificant
Other
Use of terms such as suspected, likely, concern for, or probable (associated with a specific diagnosis that is being evaluated, monitored, or treated as if it exists) are acceptable and can be coded in the inpatient setting, when documented at the
time of discharge.
Thank you,
Shruthi Le RN BSN CCDS
CDI Specialist
Please contact via tiger text
Please use your independent medical judgment in providing your response.
[2023-09-13 15:00] VITALS: BP 123/65
[2023-09-13] MEDS: LOVENOX 40 MG SC (17:01)
== END 2023-09-13 17:45 | disposition home or self-care (01) | DRG 195 ==
LOC: 4 WEST ACU 13:33
PROVIDERS: Clinical Nurse Specialist Family Health; ADMITTING PHYSICIAN Internal Medicine; ATTENDING PHYSICIAN Internal Medicine; EMERGENCY PHYSICIAN Emergency Medicine; FAMILY PHYSICIAN Nurse Practitioner Primary Care
DX: J18.9 Pneumonia, unspecified organism (principal); E03.9 Hypothyroidism, unspecified; E78.00 Pure hypercholesterolemia, unspecified; F03.90 Unspecified dementia, unspecified severity, without behavioral disturbance, psychotic disturbance, mood disturbance, and anxiety; E78.5 Hyperlipidemia, unspecified
CPT/HCPCS: 71046; 80048; 80053; 83605; 84484; 85025; 87040; 87811; 90662; 92526; 92610; 93005; 96365; 96375; 97116; 99285; G0008

== ENCOUNTER → 2023-09-16 10:01 | Outpatient (REF) | payer OTHER, MEDICARE, SELFPAY ==
[2023-09-16 10:21] LABS: Hematocrit 33.7 % (37.0-47.0); Hemoglobin 10.9 g/dL (12.0-16.0); Mean Corp Hgb Conc. 32.3 g/dL (33.0-37.0); Mean Corpuscular Hgb 28.4 pg (27.0-31.0); Mean Corpuscular Volume 87.8 fL (81.0-99.0); Mean Platelet Volume 9.6 fL (7.4-10.4); Platelet Count 397 10^3/uL (130-400); Red Blood Cell Count 3.84 10^6/uL (4.20-5.40); Red Cell Dist. Width 14.4 % (11.5-14.5); White Blood Cell Count 11.1 10^3/uL (4.8-10.8)
[2023-09-16 10:28] LABS: Blood Urea Nitrogen 9 mg/dl (7-17); Calcium 9.6 mg/dl (8.4-10.2); Carbon Dioxide 28 mmol/L (22-30); Chloride 101 mmol/L (98-107); Glucose 104 mg/dl (70-99); Magnesium 2.1 mg/dl (1.6-2.3); Potassium 3.5 mmol/L (3.5-5.1); Sodium 137 mmol/L (135-145); eGFR > 60.00
== END ==
LOC: OLABWHC 10:01
PROVIDERS: ATTENDING PHYSICIAN Internal Medicine
DX: J18.9 Pneumonia, unspecified organism (principal); E03.9 Hypothyroidism, unspecified
CPT/HCPCS: 36415; 80048; 83735; 85027

== ENCOUNTER → 2023-09-23 10:48 | Outpatient (REF) | payer OTHER, MEDICARE, SELFPAY ==
[2023-09-23 12:55] LABS: % Basophils 0.8 % (0-2); % Eosinophils 4.8 % (0-6); % Lymphocytes 30.9 % (20.5-51.1); % Monocytes 8.6 % (1.7-9.3); % Neutrophils 53.9 % (42.2-75.2); Absolute Basophils 0.1 10^3/uL (0-0.2); Absolute Eosinophils 0.3 10^3/uL (0-0.7); Absolute Immature Granulocytes 0.1 10^3/uL (0-0.05); Absolute Lymphocytes 1.9 10^3/uL (1.2-3.4); Absolute Monocytes 0.5 10^3/uL (0.1-0.6); Absolute Neutrophils 3.3 10^3/uL (1.4-6.5); Hematocrit 30.2 % (37.0-47.0); Hemoglobin 9.5 g/dL (12.0-16.0); Mean Corp Hgb Conc. 31.5 g/dL (33.0-37.0); Mean Corpuscular Hgb 27.5 pg (27.0-31.0); Mean Corpuscular Volume 87.5 fL (81.0-99.0); Mean Platelet Volume 9.6 fL (7.4-10.4); Nucleated Red Blood Cells % 0 %; Platelet Count 381 10^3/uL (130-400); Red Blood Cell Count 3.45 10^6/uL (4.20-5.40); White Blood Cell Count 6.1 10^3/uL (4.8-10.8)
== END ==
LOC: OLABWHC 10:48
PROVIDERS: ATTENDING PHYSICIAN Internal Medicine
DX: J18.8 Other pneumonia, unspecified organism (principal)
CPT/HCPCS: 36415; 85025

== ENCOUNTER → 2023-10-02 12:08 | Outpatient (REF) | payer OTHER, MEDICARE, SELFPAY ==
[2023-10-02 12:30] LABS: Hemoglobin 9.1 g/dL (12.0-16.0); Mean Corp Hgb Conc. 31.4 g/dL (33.0-37.0); Mean Corpuscular Volume 89.2 fL (81.0-99.0); Mean Platelet Volume 10.3 fL (7.4-10.4); Platelet Count 297 10^3/uL (130-400); Red Blood Cell Count 3.25 10^6/uL (4.20-5.40); Red Cell Dist. Width 15.9 % (11.5-14.5); White Blood Cell Count 6.4 10^3/uL (4.8-10.8)
[2023-10-02 12:54] LABS: Iron 21 ug/dl (37-170)
[2023-10-02 13:06] LABS: Percent Saturation 7 % (20-50); Total Iron Binding Capacity 283 ug/dl (265-497)
[2023-10-02 13:17] LABS: Ferritin 24.5 ng/ml (11.1-264.0)
== END ==
LOC: OLABWHC 12:08
PROVIDERS: ATTENDING PHYSICIAN Internal Medicine
DX: J18.8 Other pneumonia, unspecified organism (principal); D50.8 Other iron deficiency anemias
CPT/HCPCS: 36415; 82728; 83540; 83550; 85027

== ENCOUNTER 2023-12-09 11:01 | Emergency (ER) | payer OTHER, MEDICARE, SELFPAY ==
[2023-12-09 11:05] VITALS: BP 132/76; BMI 34.1
[2023-12-09 12:15] VITALS: BP 114/65
[2023-12-09 12:35] LABS: % Basophils 0.4 % (0-2); % Eosinophils 2.6 % (0-6); % Immature Granulocytes 0.5 % (0-0.5); % Monocytes 8.9 % (1.7-9.3); % Neutrophils 71.6 % (42.2-75.2); Absolute Eosinophils 0.2 10^3/uL (0-0.7); Absolute Lymphocytes 1.4 10^3/uL (1.2-3.4); Absolute Monocytes 0.8 10^3/uL (0.1-0.6); Absolute Neutrophils 6.1 10^3/uL (1.4-6.5); Hematocrit 33.5 % (37.0-47.0); Mean Corp Hgb Conc. 32.8 g/dL (33.0-37.0); Mean Corpuscular Hgb 29.1 pg (27.0-31.0); Mean Corpuscular Volume 88.6 fL (81.0-99.0); Mean Platelet Volume 10.1 fL (7.4-10.4); Nucleated Red Blood Cells % 0 %; Platelet Count 206 10^3/uL (130-400); Red Blood Cell Count 3.78 10^6/uL (4.20-5.40); Red Cell Dist. Width 15.5 % (11.5-14.5); White Blood Cell Count 8.5 10^3/uL (4.8-10.8)
[2023-12-09 12:36] LABS: Urine Albumin Trace (Neg - Trace); Urine Bilirubin Negative (Negative); Urine Character Clear (Clear); Urine Color Yellow; Urine Glucose Negative (Negative); Urine Ketone Negative (Negative); Urine Leukocyte 1+ (Negative); Urine Nitrite Positive (Negative); Urine Occult Blood 1+ (Negative); Urine Specific Gravity 1.015 (<1.030); Urine Urobilinogen Negative (Neg - 1+)
[2023-12-09 12:48] LABS: ALT (SGPT) 13 U/L (0-35); AST (SGOT) 28 U/L (14-36); Albumin 3.8 g/dl (3.5-5.0); Alkaline Phosphatase 82 U/L (38-126); Blood Urea Nitrogen 17 mg/dl (7-17); Carbon Dioxide 28 mmol/L (22-30); Chloride 105 mmol/L (98-107); Creatine Phosphokinase 59 U/L (30-135); Estimated Creatinine Clearance 73 ml/min; Glucose 110 mg/dl (70-99); Potassium 4.1 mmol/L (3.5-5.1); Sodium 137 mmol/L (135-145); Total Bilirubin 0.6 mg/dl (0.2-1.3); Total Protein 6.3 g/dl (6.3-8.2); eGFR > 60.00
[2023-12-09 13:08] LABS: Urine White Cell 21-25 /HPF (0-5)
[2023-12-09 13:09] LABS: Urine Bacteria Many (Negative)
--- NOTE | 2023-12-09 13:15 | ED.GENMED ---
History of Present Illness
General
Chief Complaint: Fall
Source: patient, family ([id number]) and ambulance crew
Exam Limitations: dementia
Time Seen by Provider: 12/09/23 11:47
Nursing documentation reviewed up to this point in time: agreed with
Travel History
Have you had any contact with someone who has COVID-19?: No
Do you have any symptoms of coronavirus? Fever > 100 degrees, chills, cough, shortness of breath, sore throat, loss of taste or smell, muscle aches, or headache?: No
History of Present Illness
History of Present Illness:
78-year-old female with a past medical history of hyperlipidemia, dementia who presents to the emergency room from [facility] where she lives in assisted living with her (who also has dementia per family); she presents via EMS
for evaluation after an unwitnessed fall. Patient is limited as a historian due to her dementia�I spoke with her [id number] on the phone who provided collateral history. Apparently patient has chronic arthritis in the knees that she was
recommended for knee replacement but family opted to forego this due to her significant dementia. Because of her knee issues she has trouble sitting and standing and has had frequent falls. She lives at [facility] and has nursing care
during the day but at nighttime her and her are alone. Apparently this morning patient was found near the bed down on the ground�apparently had an unwitnessed fall. reported to EMS that the fall occurred around 1 AM but true
timeline somewhat dubious as apparently has dementia history as well. She was sent to the emergency to be evaluated after a fall. Here she denies any pain that she denies any headache, neck pain, back pain, chest pain, abdominal pain, pain
in her extremities. She is not on any blood thinners.
Past History
Past History
ED Past Medical History: Hypercholesterolemia and Other (Dementia, )
ED Past Surgical History: Appendectomy, Gynecological (hysterectomy), Orthopedic (Hip replacement) and Other (Lasik)
Social History
Tobacco: Former smoker
Alcohol: Occasional
Personal:
Living: with family
Review of Systems
Review of Systems
Unable to obtain full review of systems at this time due to: dementia
All Other Systems: Not applicable
Phy Exam
Physical Exam
Physical Exam:
General: Awake, alert, oriented to person and place but not time; not in distress
Head: Normocephalic, atraumatic
Eyes: Conjunctiva normal, EOMI, pupils equal round and reactive to light bilaterally
Throat: Airway intact, handling secretions, tongue atraumatic
Neck: Trachea midline, no cervical spine tenderness
Back: No signs of trauma to the back, no thoracic or lumbar tenderness
Lungs: Clear to auscultation bilaterally, no wheezing, rales, rhonchi
Heart: Regular rate and rhythm, no murmurs, gallops, or rubs; she has no chest wall tenderness but does have an old appearing small bruise on the left anterior lateral ribs
Abd: Soft, non distended, nontender
Neuro: Cranial nerves grossly intact, speech fluid, no gross motor or sensory deficits
Skin: no rash, minor bruise as above
Extremities: Atraumatic, allows for full passive range of motion in all extremities without pain, no reproducible tenderness in the extremities; trace symmetric edema in lower extremities, equal pulses in all extremities
Scores
Heart Failure Risk
Heart Failure Risk Score: Not Applicable
Heart Score for Chest Pain Patients
STEMI patient?: Not applicable
Withdrawal Assessment of Alcohol
Withdrawal Assessment Completed?: Not applicable
Course
Orders/Labs/Results
Orders:
Orders
12/09/23 11:49
CR Pelvis Comp Min 3 Views Urgent
Comment:
Reason For Exam: unwitnessed fall, found down
12/09/23 11:51
CT Cervical Spine W/o Iv Contr Urgent
Comment:
Reason For Exam: unwitnessed fall, found down
CT Head W/o Iv Contrast Urgent
Comment:
Reason For Exam: unwitnessed fall, found down
12/09/23 12:17
CPK [Creatine Phosphokinase] Urgent
Complete Blood Count/With Diff Urgent
Comprehensive Metabolic Panel Urgent
Urinalysis Reflex To Culture Urgent
Date Specimen was Collected: 12/09/23
Time Specimen was Collected: 11:51
Urine Microscopic Reflex Cult Urgent
Urine Culture Urgent
JOSUÉ Source: U
Specimen Description:
Date Specimen was Collected: 12/09/23
Time Specimen was Collected: 11:51
12/09/23 13:06
CR Ribs-left 3 Vw W/pa Chest Urgent
Comment:
Reason For Exam: left rib bruising
12/09/23 13:53
CefTRIAXone [Rocephin] 1,000 mg IV NOW STA
Abnormal Lab Results
12/09/23
12:17
RBC 3.78 L 10^6/uL
(4.20-5.40)
Hgb 11.0 L g/dL
(12.0-16.0)
Hct 33.5 L %
(37.0-47.0)
MCHC 32.8 L g/dL
(33.0-37.0)
RDW 15.5 H %
(11.5-14.5)
Absolute Monos (auto) 0.8 H 10^3/uL
(0.1-0.6)
Lymphocytes % 16.0 L %
(20.5-51.1)
Glucose 110 H mg/dl
(70-99)
Ur Occult Blood Reflex 1+ A
(Negative)
Urine Nitrite (Reflex) Positive A
(Negative)
Leukocyte Esterase Rfl 1+ A
(Negative)
Urine RBC 3-6 A /HPF
(0-2)
Urine WBC (Reflex) 21-25 A /HPF
(0-5)
Urine Bacteria (Reflex) Many A
(Negative)
12/09/23 12:17
12/09/23 12:17
Vital Signs
Initial and Last Documented VS:
Initial Vital Signs
Temp Pulse Resp BP Pulse Ox
36.6 C 72 16 132/76 95
12/09/23 11:05 12/09/23 11:05 12/09/23 11:05 12/09/23 11:05 12/09/23 11:05
Last Documented Vital Signs
Temp Pulse Resp BP Pulse Ox
36.6 C 72 16 114/65 94
12/09/23 11:05 12/09/23 11:05 12/09/23 11:05 12/09/23 12:15 12/09/23 12:17
MDM/Problems Addressed
Differential Diagnosis Includes:
Unwitnessed fall�must rule out head injury; must rule out rib fracture with bruising as above; must rule out rhabdomyolysis; will evaluate for any potential triggers such as anemia, UTI, electrolyte derangement although it sounds like frequent falls
related to the arthritis
MDM/Problems Addressed:
78-year-old female with history as above presents after unwitnessed fall, found to this morning on the ground. She is not on blood thinners. She is at her baseline mental status. She has no complaints here. Her exam is as above�she does have
minor bruise on the anterior lateral ribs on the left side. It appears old and she is not particularly tender in this area. Given that the fall was unwitnessed and given her age we will check CT head and c-spine in an abundance of caution. Will
check basic screening labs and urinalysis, CPK given unclear downtime. Will check x-ray of the ribs and pelvis. Monitor closely reassess after the above.
Labs reviewed: CBC shows marginal stable anemia, CMP no clinically significant abnormalities. Her urinalysis appears to be positive for infection with bacteria and pyuria�there are some squamous cells which could suggest contamination will err on
the side of treating but no signs of sepsis and no change in her mental status to suggest that this needs to be treated in the hospital. Will plan to treat with oral antibiotics and follow-up on culture. Her imaging is negative for any acute
posttraumatic injury�CT head and cervical spine negative, pelvic x-ray no fractures, rib x-ray no fractures. Patient remains awake and alert and is requesting to go home. I spoke with her [id number] to go over results and plan for discharge
she feels comfortable with this. Spoke about return precautions all questions answered.
Chronic conditions affecting care:
Dementia
*Radiology
Radiology exam reviewed: preliminary read by ED provider and radiology read reviewed
*Pulse Oximetry
Patient hypoxic: no
*Critical Care Note
Total Time (30-74mins, 75-104mins- exclusive of procedures): Not Applicable
Data Reviewed
Review of Other/Old Records Reveals: Labs and Records
Source: patient, records and family ([id number])
Patient Management
Social determinants of health affecting care: Strong social support
ED Attending Note
-
Portions of this chart may have been created with voice recognition software.� Occasional wrong word or��sound alike� substitutions may have occurred due to the inherent limitations of voice recognition software.
Discharge Plan
Departure
Patient Disposition: Home (Routine Discharge)
Date of Disposition: 12/09/23
Time of Disposition: 13:53
Patient with high blood pressure during this ER visit?: No
Discharge Problem:
Fall, Superficial bruising of chest wall, Acute UTI
Instructions: Contusion (DC), Preventing falls in adults, Urinary Tract Infection, Adult ED
Prescriptions:
New
cefdinir 300 mg capsule
300 mg PO BID Qty: 14 0RF
No Action
levothyroxine 88 mcg tablet
88 mcg PO DAILY@0700
citalopram 20 mg tablet
20 mg PO DAILY
ferrous sulfate 325 mg (65 mg iron) Tablet
325 mg PO DAILY
Citrucel 500 mg Tablet
500 mg PO DAILY
cholecalciferol (vitamin D3) [Vitamin D3] 25 mcg (1,000 unit) Capsule
25 mcg PO DAILY
rosuvastatin 20 mg tablet
20 mg PO DAILY
memantine 5 mg tablet
5 mg PO DAILY
Centrum Women 18-400 mg-mcg Tablet
1 tab PO DAILY
azithromycin 250 mg Tablet
500 mg PO DAILY Qty: 3 0RF
cefuroxime axetil 500 mg tablet
500 mg PO Q12H Qty: 6 0RF
Referrals:
Tristan Beltran MD [Family Provider] - Follow up in 5-7 days
Activity Restrictions/Additional Instructions:
Thank you for visiting the Emergency Department at [facility].
1. Please schedule a follow up appointment as directed. Call first thing tomorrow morning to make an appointment.
2. If indicated, please take your medications as instructed and indicated on discharge paperwork.
3. If any of your symptoms do not improve, or persist, or become more severe within 6-12 hours, please return to the emergency department for further care.
4. Please return to the emergency department if you develop a headache, neck pain/stiffness, fever greater than 100.4F, chest pain, shortness of breath, persistent nausea, vomiting, slurred speech, difficulty walking, numbness/tingling, weakness,
signs of infection or any other symptoms that are worrisome to you.
Please call [phone] if you have any questions.
Interventions
Interventions:
*Risk Screen - Suicide Last Done: 12/09/23 11:05
*General Assessment Last Done: 12/09/23 11:05
*Neglect/Abuse Screening Last Done: 12/09/23 11:05
*ED COVID-19 Vaccine History Last Done: 12/09/23 11:05
ED-Musculoskeletal Assessment Last Done: 12/09/23 11:10
ED- Neurological Assessment Last Done: 12/09/23 11:10
ED-Skin Assessment Last Done: 12/09/23 11:10
Discharge Date and Time
Print Language: YI
[2023-12-09 13:46] VITALS: BP 114/71
[2023-12-09 14:00] VITALS: BP 122/74
[2023-12-09] MEDS: ROCEPHIN 1000 MG IV (14:04)
== END 2023-12-09 14:49 | disposition home or self-care (01) ==
LOC: EMR 11:01
PROVIDERS: EMERGENCY PHYSICIAN Emergency Medicine; FAMILY PHYSICIAN Internal Medicine Geriatric Medicine
DX: S20.212A Contusion of left front wall of thorax, initial encounter (principal); W19.XXXA Unspecified fall, initial encounter; N39.0 Urinary tract infection, site not specified; F03.90 Unspecified dementia, unspecified severity, without behavioral disturbance, psychotic disturbance, mood disturbance, and anxiety; Z87.891 Personal history of nicotine dependence
CPT/HCPCS: 99285; 96374; 70450; 71101; 72125; 72190; 80053; 81003; 81015; 82550; 85025; 87077; 87086; 87186

== ENCOUNTER 2023-12-14 19:19 | Inpatient (IN) | payer MEDICARE, SELFPAY ==
[2023-12-14] VITALS (8 sets, daily range): BP systolic 124–163; BP diastolic 70–101; BMI 34.4; BMI 33.2
--- NOTE | 2023-12-14 16:12 | ED.GENMED ---
History of Present Illness
General
Chief Complaint: Breathing Problem
Source: patient and family (son at bedside)
Exam Limitations: dementia
Time Seen by Provider: 12/14/23 16:11
Nursing documentation reviewed up to this point in time: agreed with
Travel History
Have you had any contact with someone who has COVID-19?: No
Do you have any symptoms of coronavirus? Fever > 100 degrees, chills, cough, shortness of breath, sore throat, loss of taste or smell, muscle aches, or headache?: No
History of Present Illness
History of Present Illness:
78-year-old female from [facility] where she lived with , also w dementia, with a past medical history of hyperlipidemia, dementia UTI 12/09/23 given Rocephin and is on Ceftriaxone 300 mg BID day 5.
Son with her states she's had a cough 4-5 days care team noted increased cough and wheezing past 24 hours as well as very fatigued. There has been no fever, no n/v/d/c. Pt denies CP, abd pain.
Past History
Past History
ED Past Medical History: Hypercholesterolemia and Other (Dementia, )
ED Past Surgical History: Appendectomy, Gynecological (hysterectomy), Orthopedic (Hip replacement) and Other (Lasik)
Social History
Tobacco: Former smoker
Alcohol: Occasional
Personal:
Living: with family
Review of Systems
Review of Systems
Allergies reviewed?: Yes
All Other Systems: ROS reviewed and negative except as documented in HPI and ROS
Constitutional: Reports fatigue; Denies fever
Respiratory: Reports cough and trouble breathing
Cardiac: Denies chest pain
ABD/GI: Denies abdominal pain, nausea, vomiting, diarrhea, constipated, bloody stools, black stools or anorexia
: Reports incontinence (at times (chronic)); Denies dysuria, flank pain or difficulty voiding
Musculoskeletal: Reports other (bilateral knee pain (bone on bone) family opted no surgery due to dementia. Trouble standing and frequent falls.); Denies edema
Skin: Reports no symptoms
Neurological: Reports no symptoms
Phy Exam
Physical Exam
Physical Exam:
GENERAL: No acute distress. A&O to name, place.
CONSTITUTIONAL: Afebrile.
EYES: clear, conjunctivae normal
Neck: Supple
ENMT: moist mucus membranes, Pharynx nl
RESPIRATORY: Regular respirations, tachypneic RR 22, mildly labored, lungs with expiratory wheezes throughout, diminished BS LLL. Pulse ox 92% on 2L NC
CARDIOVASCULAR: Regular rate and rhythm, no murmurs, no rubs.
GI: Soft, nontender, normal BS
MUSCULOSKELETAL: Moves with ease. Well perfused.
SKIN: Warm, dry, pink
PSYCH: Normal mood and affect. Well kept, interactive and appropriate
NEUROLOGIC: Awake, alert and oriented. No focal neurological deficits
Scores
Heart Failure Risk
Heart Failure Risk Score: Not Applicable
Course
Orders/Labs/Results
Orders:
Orders
12/14/23 Dinner
Regular
At Your Request: Non-Participating
12/14/23 15:14
ECG [Electrocardiogram (*1)] Urgent
Reason for Study: Shortness of Breath
EKG- Treatment ONCE
12/14/23 16:25
CR Chest - 2 Views Urgent
Comment:
Reason For Exam: SOB, wheezing
12/14/23 16:26
Ipratropium/Albuterol Sulfate [Duoneb] 3 ml INH R NOW STA
12/14/23 16:40
COVID-19 Antigen Urgent
Source: Nasal Swab
Complete Blood Count/With Diff Urgent
Comprehensive Metabolic Panel Urgent
NT-proBNP Urgent
Troponin I Urgent
Influenza A+B Rapid Molecular Urgent
JOSUÉ Source: Nasal Swab
Specimen Description:
12/14/23 17:52
CefTRIAXone [Rocephin] 1,000 mg IV NOW STA
12/14/23 18:25
Doxycycline [Vibramycin] 100 mg PO NOW STA
12/14/23 18:31
Admit/Transfer Patient As Directed
Co-Sign Provider:
Level of Care: Inpatient admission
Assign to:: Medical/Surgical
Physician / Group: lorrie dietz
Diagnosis: Lg lll pna, mod left plueral effusion
Reason for Hospitalization: Lg lll pna, mod left plueral effusion
Expected length of stay greater than two midnights?: Yes
ELOS- Estimated Length of Stay in days: 4
I certify the patient meets the requirements for IP care: Yes
12/14/23 18:33
Code Status As Directed
Resuscitation Status: Do not resuscitate
Reached after discussion with pt or family/Healthcare POA: Yes
Based on pt advanced directive or healthcare POA form: Yes
Decision communicated with: per son rocio polaura
DNR Bracelet Application ONCE
12/14/23 18:36
PULMONARY CONSULT Routine
Consulting Provider: Good Chandra
Was physician already notified: Yes
Reason for consult: mod left pluerla effusion
12/14/23 18:[address] Non Medication Order As Directed
Physician Order: If passes bedside swallow may have regular diet
Above order entered?: Yes
Speech Screening from Bernadine Routine
12/14/23 19:00
Flush (0.9% Sodium Chloride) [Flush (Nss)] See Dose Instructions IV PER PROTOCOL
12/14/23 20:00
Ampicillin/Sulbactam 3 G [Unasyn] 3 gm 0.9% Sodium Chloride 100 ml [Nss] 100 ml IV Q6H
12/14/23 20:04
Acetaminophen [Tylenol] 650 mg PO Q6HPRN PRN
Bisacodyl [Dulcolax] 10 mg RECTAL [id number] PRN
Docusate W/Senna [Senokot-S] 1 tablet PO BIDPRN PRN
Guaifenesin [Mucinex] 600 mg PO Q12
Polyethylene Glycol Powder [Miralax] 17 grams PO DAILYPRN PRN
12/14/23 20:04
Activity As Directed
Activity Level: With Assistance
Comment: uses walker
Intake/ Output As Directed
Frequency: Per unit guidelines
Vital Signs As Directed
Frequency: Per unit guidelines
Incentive Spirometry [Rx Incentive Spirometry] [RESP] Routine
Frequency: q1h while awake
Oxygen Therapy [O2 Therapy] [RESP] Routine
Nasal Cannula Liter Flow: 2 LPM
Titrate/Wean O2 to maintain O2 sat greater than (%): 92
Pulse Ox/cont/shift [RESP] Routine
Quantity: 1
Ot Eval And Treat Routine
Pt Eval And Treat Routine
Activity Level: With Assistance
Speech Therapy Eval & Treat Routine
DX Deep Vein Thrombosis Video Routine
12/14/23 21:28
MRSA Screen Routine
JOSUÉ Source: Nose
Specimen Description:
12/14/23 22:00
Cholecalciferol (Vitamin D3) [VITAMIN D3 (cholecalciferol)] 25 mcg PO HS
Citalopram [Celexa] 20 mg PO HS
Melatonin 5 mg PO HS
Rosuvastatin Calcium [Crestor] 20 mg PO HS
12/15/23 06:00
Basic Metabolic Panel IN AM
Complete Blood Count/With Diff IN AM
Levothyroxine [Synthroid] 88 mcg PO DAILY@0600
US Chest - Left IN AM
Comment:
Reason For Exam: mor pleural effusion fluid amount
12/15/23 08:00
Doxycycline [Vibramycin] 100 mg PO Q12
Ferrous Sulfate [Feosol] 325 mg PO DAILY
Pantoprazole [Protonix] 40 mg PO DAILY
12/15/23 18:00
Enoxaparin Sodium [Lovenox] 40 mg SC QPM
12/16/23 06:00
Basic Metabolic Panel IN AM
Complete Blood Count/With Diff IN AM
12/17/23 06:00
Basic Metabolic Panel IN AM
Complete Blood Count/With Diff IN AM
Abnormal Lab Results
12/14/23
16:40
RDW 14.8 H %
(11.5-14.5)
Abs Immat Gran (auto) 0.1 H 10^3/uL
(0-0.05)
Absolute Neuts (auto) 6.9 H 10^3/uL
(1.4-6.5)
Absolute Lymphs (auto) 1.0 L 10^3/uL
(1.2-3.4)
Absolute Monos (auto) 1.0 H 10^3/uL
(0.1-0.6)
Neutrophils % 75.8 H %
(42.2-75.2)
Lymphocytes % 10.8 L %
(20.5-51.1)
Monocytes % 10.4 H %
(1.7-9.3)
Sodium 134 L mmol/L
(135-145)
Glucose 122 H mg/dl
(70-99)
Calcium 10.3 H mg/dl
(8.4-10.2)
12/14/23 16:40
12/14/23 16:40
Vital Signs
Initial and Last Documented VS:
Initial Vital Signs
Temp Pulse Resp BP Pulse Ox
98.1 F 106 20 142/86 93
12/14/23 15:06 12/14/23 15:06 12/14/23 15:06 12/14/23 15:06 12/14/23 15:06
Last Documented Vital Signs
Temp Pulse Resp BP Pulse Ox
99.1 F 103 22 145/95 94
12/14/23 20:10 12/14/23 20:10 12/14/23 20:10 12/14/23 20:10 12/14/23 21:00
MDM/Problems Addressed
Differential Diagnosis Includes:
PNA, asthma/reactive airway, CHF
MDM/Problems Addressed:
78-year-old female from [facility] where she lived with , also w dementia, with a past medical history of hyperlipidemia, dementia UTI 12/09/23 given Rocephin and is on Ceftriaxone 300 mg BID day 5.
Son with her states she's had a cough 4-5 days care team noted increased cough and wheezing past 24 hours as well as very fatigued. There has been no fever, no n/v/d/c. Pt denies CP, abd pain.
5:47 p.m.
CBC: no clinically significant abnormality
CMP: Normal
Covid neg
Troponin nl
BNP WNL
Neg Flu A&B
CXR: Radiology report read: IMPRESSION:
1. Large left lower lobe airspace consolidation which has increased in size since 12/09/2023. Diagnostic possibilities are (1) severe left lower lobe atelectasis secondary to mucous plugging in the left lower lobe bronchus, (2) compressive left
lower lobe atelectasis, or (3) severe left lower lobe pneumonia.
2. Interval increase in a moderate-sized left pleural effusion.
3. Mild right lower lobe airspace opacity.
Plan: Admit: Acute hypoxemic resp failure, LLL pneumonia
Hospitalist notified of admission
*Pulse Oximetry
Patient hypoxic: yes
Comment: 90% RA
*EKG
EKG Intrepretation Date: 12/14/23
Interpretation: abnormal
Comparison EKG: no changes
Rate: tachycardiac
Rhythm: sinus
[place]: normal axis
Interval: normal interval
QRS Pattern: normal QRS
Ischemia: no ischemia
*Critical Care Note
Total Time (30-74mins, 75-104mins- exclusive of procedures): Not Applicable
ED Attending Note
-
Portions of this chart may have been created with voice recognition software.� Occasional wrong word or��sound alike� substitutions may have occurred due to the inherent limitations of voice recognition software.
Discharge Plan
Departure
Patient Disposition: Admit
Date of Disposition: 12/14/23
Time of Disposition: 17:50
Presentation/result/management discussed w/ accepting MD/DO: Hospitalist
Condition: Serious
Covid-19: Negative COVID-19
Discharge Problem:
Left lower lobe pneumonia, Acute hypoxemic respiratory failure
Interventions
Interventions:
*Risk Screen - Suicide Last Done: 12/14/23 16:47
*General Assessment Last Done: 12/14/23 15:06
*Neglect/Abuse Screening Last Done: 12/14/23 15:06
ED- Fall Risk Assessment Last Done: 12/14/23 18:59
*ED COVID-19 Vaccine History Last Done: 12/14/23 15:06
*Nursing Disposition Last Done: 12/14/23 19:59
ED- Cardiac Assessment Last Done: 12/14/23 16:46
ED- Pulmonary Assessment Last Done: 12/14/23 19:54
Discharge Date and Time
Discharge Date/Time: 12/14/23 19:59
[2023-12-14] MEDS: DUONEB 3 ML INH (16:41)
[2023-12-14 16:49] LABS: % Basophils 0.4 % (0-2); % Eosinophils 2.1 % (0-6); % Immature Granulocytes 0.5 % (0-0.5); % Lymphocytes 10.8 % (20.5-51.1); % Monocytes 10.4 % (1.7-9.3); % Neutrophils 75.8 % (42.2-75.2); Absolute Eosinophils 0.2 10^3/uL (0-0.7); Absolute Immature Granulocytes 0.1 10^3/uL (0-0.05); Absolute Neutrophils 6.9 10^3/uL (1.4-6.5); Hematocrit 38.2 % (37.0-47.0); Mean Corpuscular Volume 85.1 fL (81.0-99.0); Mean Platelet Volume 9.5 fL (7.4-10.4); Nucleated Red Blood Cells % 0 %; Platelet Count 235 10^3/uL (130-400); Red Blood Cell Count 4.49 10^6/uL (4.20-5.40); Red Cell Dist. Width 14.8 % (11.5-14.5); White Blood Cell Count 9.2 10^3/uL (4.8-10.8)
[2023-12-14 17:02] LABS: ALT (SGPT) 16 U/L (0-35); AST (SGOT) 34 U/L (14-36); Albumin 4.2 g/dl (3.5-5.0); Alkaline Phosphatase 108 U/L (38-126); Blood Urea Nitrogen 16 mg/dl (7-17); Calcium 10.3 mg/dl (8.4-10.2); Carbon Dioxide 23 mmol/L (22-30); Chloride 101 mmol/L (98-107); Glucose 122 mg/dl (70-99); Potassium 4.4 mmol/L (3.5-5.1); Sodium 134 mmol/L (135-145); Total Bilirubin 0.7 mg/dl (0.2-1.3); Total Protein 7.3 g/dl (6.3-8.2); eGFR > 60.00
[2023-12-14 17:06] LABS: COVID-19 Antigen Negative (Negative)
[2023-12-14 17:14] LABS: NT-proBNP 258 pg/ml; Troponin I 0.016 ng/ml
--- NOTE | 2023-12-14 17:59 | W.PN.UPDATE ---
Update Note
Progress Note Update
This is an addendum to H&P written by BULB FILLER Consuelo Hopkins
I saw and examined the patient.
The BULB FILLER's note was reviewed and I agree with the note.
Comment:
Ms. Emani Brink is a 78 yo woman with hx dementia, HLD, resident of [facility] presents to the ER with increased cough and wheezing over past 24 hours. She was seen in the ER on 12/08, diagnosed with a UTI and discharged on Cefdinir.
ER visit was for an unwitnessed fall where she was found near the bed. Work-up without fracture.
Patient is seen with son at bedside. She has had wheezing + cough and fatigue over past several days. She and are residents in [facility] living, with private aids.
On exam patient has audible wheezing. Wheezing more pronounced upper airway, she does not appear in distress. decreased breath sounds LLL. Apparent dementia. No LE swelling. CV: S1, S2, RRR.
Triage Vitals: T 98.1, P 106, RR 20, BP 142/86, SpO2 93%
LABS: WBC 9.2, Hg 13.0, PLT 235, Na 134, K+ 4.4, Cl 101, CO2 23, BUN 16, Cr 0.7, Glucose 122, liver enzymes WNL, Trop 0.016, BNP 258
CXR
IMPRESSION:
1. Large left lower lobe airspace consolidation which has increased in size since 12/09/2023. Diagnostic possibilities are (1) severe left lower lobe atelectasis secondary to mucous plugging in the left lower lobe bronchus, (2) compressive left
lower lobe atelectasis, or (3) severe left lower lobe pneumonia.
2. Interval increase in a moderate-sized left pleural effusion.
3. Mild right lower lobe airspace opacity.
MAR: Ceftriaxone/Duonebs
Bilateral pneumonia
Complicated Parapneumonic Effusion
-admit to med/surg
-IV Unasyn + Doxy (patient was recently on 3rd generation cephalosporin)
-Chest US to evaluate effusion
-Pulmonary consult
-standing duonebs and PRN
-given wheezing is from upper airway; will not start steroids at this time
-mucinex, acapella
-PT/OT
DVT PPx
DNR
[2023-12-14] MEDS: ROCEPHIN 1000 MG IV (18:04)
--- NOTE | 2023-12-14 18:07 | HPS.HSE ---
Family Physician
-
Family Physician: Sindhu Conley
Chief Complaint
-
Shortness of breath 4 to 5 days, orthopnea, wheezing
History of Present Illness
78-year-old female from [facility] living independent where she lives with her who also has dementia per family, but they pay for a private agency to come in to assist their parents. Her son reports she has had a cough for the past 4 to
5 days with wheezing times past 24 hours and orthopnea. The patient reports a nonproductive cough, shortness of breath with wheezing. She denies headache, sore throat, fever, chills, chest pain, palpitations, abdominal pain, nausea, vomiting,
diarrhea, urinary symptoms.
She was seen in the ER on 12/09/2023 for an unwitnessed fall. She had negative CT head, cervical spine, pelvic and rib x-rays she also had some dysuria but due to dementia unable to get proper ROS she was sent home on cefdinir 300 mg twice daily x 7
days. Patient has history of dementia-moderate, ex-smoker quit 1974, HLD, UTIs, hypothyroidism depression, precancerous skin lesion with removal nose, chronic ambulatory dysfunction uses walker at baseline
Medical History
Past Medical History
Past Medical History: Reports Other
Additional Past Medical History:
dementia-moderate
ex-smoker quit
HLD
UTIs
hypothyroidism
depression
precancerous skin lesion with removal nose
chronic ambulatory dysfunction uses walker at baseline
Past Surgical History: Reports Other
Additional Past Surgical History:
Hip replacement
Hysterectomy
Appendectomy
Precancerous lesion nose removal
Lasix eye surgery
Social History
Tobacco: Former Smoker (Quit 1974)
Alcohol: None
Drug: None
Personal:
Living: With Family (With [place] independent but has private care assistance per family)
Employment: Retired
Family History
Family History: Unable to Obtain
Allergies / Home Medications
Allergies reflects when Allergies were last updated in [facility].
Home Medications with original date entered in [facility]
Allergy/Medication List:
Allergies
Allergy/AdvReac Type Severity Reaction Status Date / Time
No Known Allergies Allergy Unverified 12/14/23 15:13
Home Medications
citalopram 20 mg tablet 20 mg PO HS Mental Health/Anxiety 09/10/23
ferrous sulfate 325 mg (65 mg iron) tablet 325 mg PO DAILY supplement 09/10/23
levothyroxine 88 mcg tablet 88 mcg PO DAILY hypothyroidism 09/10/23
memantine 5 mg tablet 5 mg PO DAILY cognition 09/10/23
multivitamin-ferrous fumarate-folic acid 18 mg-400 mcg tablet (Centrum Women) 1 tab PO HS supplement 09/10/23
rosuvastatin 20 mg tablet 20 mg PO HS high cholesterol 09/10/23
cefdinir 300 mg capsule 300 mg PO BID #14 caps 12/09/23
Citracal 1 tab PO HS 12/14/23
cholecalciferol (vitamin D3) 25 mcg (1,000 unit) tablet 25 mcg PO HS 12/14/23
meloxicam 15 mg tablet 15 mg PO HS 12/14/23
omeprazole 20 mg capsule,delayed release 20 mg PO DAILY 12/14/23
Review of Systems
-
History Source: Patient and Family (Son Robert at bedside)
A 12 point ROS was completed and negative except as noted: Yes
Constitutional: Denies Fever or Chills
EENT: Denies Sore Throat or Runny Nose
Respiratory: Reports Cough (Nonproductive), Trouble Breathing (Wheezing) and Other (Orthopnea)
Cardiac: Denies Chest Pain, Diaphoresis, Palpitations or Syncope
Abdomen/GI: Denies Abdominal Pain, Nausea, Vomiting, Diarrhea, Constipated, Bloody Stools or Black Stools
: Denies Dysuria, Frequency, Flank Pain, Incontinence or Difficulty Voiding
Musculoskeletal: Denies Joint Pain or Edema
Skin: Denies Itching or Rash
Neurological: Denies Dizzy, Headache or Weakness
Endocrine: Reports No Symptoms
Hematologic/Lymphatic: Reports No Symptoms
Psych: Reports Calm
Physical Exam
Vital Signs
Vital Signs
Temp Pulse Resp BP Pulse Ox
98.1 F 106 20 142/86 91
12/14/23 15:06 12/14/23 15:06 12/14/23 15:06 12/14/23 15:06 12/14/23 16:46
Physical Exam
General: Comfortable and Conversant
HEENT: NormoCephalic, Anicteric, Moist mucous membranes, PERRLA, [place] Conjunctivae and Oxygen (2 L nasal cannula)
Respiratory: Wheezes (Audible wheezing when entering room, diffuse wheezing throughout right lung field with diminished breath sounds, left lung field expiratory wheezing)
Cardiac: S1/S2 and Regular Rhythm; No Murmur, Rub, Gallop, Peripheral Edema or JVD
Breast: Deferred by me
GI: Soft, Non Tender, Non Distended, Normal Bowel Sounds and No Hepatosplenomegaly
Rectal: Deferred by Provider
Genito-urinary: Deferred by me
Musculoskeletal: No Clubbing, No Cyanosis and No Edema
Skin: Warm and Dry; No Rash or Jaundice
Neuro: Awake, Alert, Oriented (To first and last name, son Robert at bedside but she was unsure of his relationship not year or date), Nonfocal/grossly intact, Cranial Nerves Intact and No Sensory Deficits; No Slurred Speech, Facial Droop or Tremors
Psych: Calm
Laboratory Results
-
12/14/23 16:40
12/14/23 16:40
Laboratory Results
Total Bilirubin 0.7 mg/dl (0.2-1.3) 12/14/23 16:40
AST 34 U/L (14-36) 12/14/23 16:40
ALT 16 U/L (0-35) 12/14/23 16:40
Alkaline Phosphatase 108 U/L (38-126) 12/14/23 16:40
Troponin I 0.016 ng/ml 12/14/23 16:40
Data Reviewed
-
Diagnostic Radiology: Report Reviewed by me
Lab Data: Labs Reviewed by me
Impression/Plan
-
Impression/plan:
Admit to MedSurg
#Large left lower lobe PNA with moderate size left pleural effusion
#Right lower lobe airspace opacity
#Acute hypoxic resp insufficiency 2/2 to above
COVID/Flu-negative
91% RA, 93%2 liters nc
-Check lactic acid, blood cultures x 2
-IV Unasyn, doxycycline 100 mg bid
-Consult pulmonary�Dr. Chandra aware
-Chest ultrasound to evaluate fluid volume for left pleural effusion
-speech swallow
-Hold Meloxicam 15 mg at bedtime(unclear reason patient on)
CXR:
1. Large left lower lobe consolidation increased from 12/09/2023 possibilities include severe left lower lobe atelectasis secondary to mucous plugging in the left lower lobe bronchus, compressive left lower lobe atelectasis or severe left lower lobe
pneumonia.
2. Interval increase in moderate size left pleural effusion
3. Mild right lower lobe airspace opacity
EKG: Sinus tach 105 bpm, QTc 441 MS no change from September 10, 2023
#Recent UTI grew Klebsiella 12/09/2023
#History of UTIs
-Has been on cefdinir 300 mg past 5 days 2 more days left( will stop as going on unasyn)
#Hx dementia-moderate
Oriented to first and last name, Robert her son but she is unsure of his relation, not place or year
-Fall precautions
-Continue memantine 5 mg daily
#Hypothyroidism
-Continue levothyroxine
#HLD
-Continue Crestor 20 mg daily,
#Depression
cont citalopram 20 mg daily
#Chronic ambulatory dysfunction uses walker at baseline
DVT proph
Subcu Lovenox
DNR per son Robert who is POA along with his
[2023-12-14] MEDS: VIBRAMYCIN 100 MG PO (18:48)
--- NOTE | 2023-12-14 19:57 | EDRN ---
Pharmacy is sending 1999 unasyn to floor
--- NOTE | 2023-12-14 20:10 | PTCARENOTE ---
Pt was received from ED at 2009. Pt is oriented to herself, pleasantly confused. Unasyn antibiotic started. POX 94% on 3.5L NC. Pt resting in bed. Son at the bedside, care plan reviewed with son.
[2023-12-14] MEDS: UNASYN IV (20:20)
[2023-12-14] MEDS: MELATONIN 5 MG PO (21:14)
[2023-12-14] MEDS: CRESTOR 20 MG PO (21:14)
[2023-12-14] MEDS: VITAMIN D3 (cholecalciferol) 25 MCG PO (21:14)
[2023-12-14] MEDS: MUCINEX 600 MG PO (21:14)
[2023-12-14] MEDS: CELEXA 20 MG PO (21:14)
[2023-12-15] MEDS: UNASYN IV ×4 (01:30→19:45)
[2023-12-15] MEDS: SYNTHROID 88 MCG PO (05:39)
[2023-12-15 07:10] VITALS: BP 121/80
[2023-12-15 07:54] LABS: % Basophils 0.3 % (0-2); % Eosinophils 0.5 % (0-6); % Immature Granulocytes 0.4 % (0-0.5); % Lymphocytes 10.3 % (20.5-51.1); % Monocytes 10.7 % (1.7-9.3); % Neutrophils 77.8 % (42.2-75.2); Absolute Eosinophils 0.1 10^3/uL (0-0.7); Absolute Neutrophils 7.4 10^3/uL (1.4-6.5); Hematocrit 34.2 % (37.0-47.0); Hemoglobin 11.2 g/dL (12.0-16.0); Mean Corp Hgb Conc. 32.7 g/dL (33.0-37.0); Mean Corpuscular Hgb 28.7 pg (27.0-31.0); Mean Corpuscular Volume 87.7 fL (81.0-99.0); Mean Platelet Volume 10.1 fL (7.4-10.4); Nucleated Red Blood Cells % 0 %; Platelet Count 218 10^3/uL (130-400); White Blood Cell Count 9.5 10^3/uL (4.8-10.8)
[2023-12-15 08:10] LABS: Blood Urea Nitrogen 17 mg/dl (7-17); Calcium 9.7 mg/dl (8.4-10.2); Carbon Dioxide 21 mmol/L (22-30); Chloride 102 mmol/L (98-107); Estimated Creatinine Clearance 82 ml/min; Glucose 103 mg/dl (70-99); Sodium 134 mmol/L (135-145); eGFR > 60.00
[2023-12-15] MEDS: FEOSOL 325 MG PO (08:40)
[2023-12-15] MEDS: MUCINEX 600 MG PO ×2 (08:40→19:45)
[2023-12-15] MEDS: PROTONIX 40 MG PO (08:40)
[2023-12-15] MEDS: VIBRAMYCIN 100 MG PO ×2 (08:42→19:49)
[2023-12-15 09:11] VITALS: BP 141/85; PULSE 98; O2SAT 95
[2023-12-15 09:13] VITALS: BP 141/85; PULSE 98; O2SAT 94
--- NOTE | 2023-12-15 11:16 | W.PN.HOSP.TC ---
Addendum entered and electronically signed by Elizabeth Ramos MD 12/15/23 13:25:
US with moderate sized effusion
left voicemail for daughter to call me back
Original Note:
Today's Communication/Plan
-
IV Unasyn/Doxy
F/U Pulm recs; chest US may not be done until tomorrow
Patient's resp status seems improved today
Assessment / Plan
Assessment / Plan
Ms. Emani Brink is a 78 yo woman with hx dementia, HLD, resident of [facility] presents to the ER with increased cough and wheezing over past 24 hours. She was seen in the ER on 12/08, diagnosed with a UTI and discharged on Cefdinir.
ER visit was for an unwitnessed fall where she was found near the bed. Work-up without fracture.
Triage Vitals: T 98.1, P 106, RR 20, BP 142/86, SpO2 93%
LABS: WBC 9.2, Hg 13.0, PLT 235, Na 134, K+ 4.4, Cl 101, CO2 23, BUN 16, Cr 0.7, Glucose 122, liver enzymes WNL, Trop 0.016, BNP 258
CXR
IMPRESSION:
1. Large left lower lobe airspace consolidation which has increased in size since 12/09/2023. Diagnostic possibilities are (1) severe left lower lobe atelectasis secondary to mucous plugging in the left lower lobe bronchus, (2) compressive left
lower lobe atelectasis, or (3) severe left lower lobe pneumonia.
2. Interval increase in a moderate-sized left pleural effusion.
3. Mild right lower lobe airspace opacity.
Bilateral pneumonia
Parapneumonic Effusion
-admitted to med/surg
-IV Unasyn + Doxy (patient was recently on 3rd generation cephalosporin)
-Chest US to evaluate effusion
-resp status improved; no upper airway wheezing/stridor this AM
-Pulmonary consult
-standing duonebs and PRN
-avoided steroids on admit
-mucinex, acapella
-PT/OT
#Recent UTI grew Klebsiella 12/09/2023
#History of UTIs
-Has been on cefdinir 300 mg past 5 days 2 more days left( will stop as going on unasyn)
#Hx dementia-moderate
Oriented to first and last name, Robert her son but she is unsure of his relation, not place or year
-Fall precautions
-Continue memantine 5 mg daily
#Hypothyroidism
-Continue levothyroxine
#HLD
-Continue Crestor 20 mg daily,
#Depression
cont citalopram 20 mg daily
#Chronic ambulatory dysfunction uses walker at baseline
DVT proph
Subcu Lovenox
DNR per son Robert who is POA along with his
DVT PPx
DNR
Anticipated Discharge: > 48 hours
Subjective/Interval History
-
Date of Service: December 15, 2023
no new complaints
denies pain and shortness of breath
Objective Data
-
Labs:
Laboratory Results
12/15/23
06:45
WBC 9.5
Hgb 11.2 L
Hct 34.2 L
Plt Count 218
Sodium 134 L
Potassium 4.0
Chloride 102
Carbon Dioxide 21 L
BUN 17
Creatinine 0.6
Glucose 103 H
Calcium 9.7
Vital Signs:
Vital Signs
Temp Pulse Resp BP Pulse Ox
99.8 F 89 17 121/80 95
12/15/23 07:10 12/15/23 07:10 12/15/23 07:10 12/15/23 07:10 12/15/23 09:09
I&O
12/14/23 12/15/23 12/16/23
06:59 06:59 06:59
Intake Total 320 / 320
Balance 320 / 320
Review of Systems
-
History Source: Patient
All other systems: Reviewed and negative
Physical Exam
-
General: Well Developed and No Apparent Distress
HEENT: Normocephalic, Atraumatic and Moist Mucous Membranes
Respiratory: Negative Wheezes
Cardiac: Regular Rhythm and S1/S2; Negative Murmur, Rub or Gallop
GI: Soft, Nontender, Nondistended and Normal Bowel Sounds; Negative Organomegaly
Rectal: Deferred by Provider
Musculoskeletal: No Clubbing, No Cyanosis and No Edema
Skin: Negative Rash
Neuro: Nonfocal/Grossly Intact
Psych: Apparent Dementia
Data Reviewed
-
Diagnostic Radiology: Report Reviewed by me
Labs: Labs Reviewed by me
[2023-12-15 12:24] LABS: LDH 264 U/L (120-246)
[2023-12-15 12:45] LABS: Total Protein 6.2 g/dl (6.3-8.2)
[2023-12-15 15:05] VITALS: BP 123/87
[2023-12-15] MEDS: DUONEB 3 ML INH ×2 (15:20→20:01)
--- NOTE | 2023-12-15 15:57 | CON.PUL ---
Consultation
Consultation Request
Date/Time Consultation Requested: 12-15-23
Date/Time Consultation Performed: 12-15-23
Requesting Provider: Hospitalist Darlyn
Performing Provider: Dr Chandra
Reason for Consultation: L pleural effusion
Medical History
-
Chief Complaint: dyspnea
History of Present Illness:
Mrs Emani Brink is a 78/W adm 12-13 with 4-5 d h/o mild nonproductive cough, episodic wheezing and orthopnea.
Seen in the ER on 12/08 for an unwitnessed fall, had negative CT head/neck, negative pelvic and rib x-rays, reported some dysuria and d/c on cefdinir 300 mg twice daily x 7 days.
PMH positive for moderate dementia-moderate, former smoker (quit 1974), UTIs, hypothyroidism, depression, chronic ambulatory dysfunction (uses walker).
At ER, CXR with L sided effusion, started empiric atbs
Note past h/o remote smoking, not on O2 or BDs
Past Medical History
Past Medical History: Other (see A&P for PMH/PSH)
Social History
Tobacco: Former Smoker
Alcohol: None
Drug: None
Personal:
Living: With Family
Employment: Retired
Family History
Family History: Unable to Obtain
Allergies / Home Medications
Allergies
Allergy/AdvReac Type Severity Reaction Status Date / Time
No Known Allergies Allergy Unverified 12/14/23 15:13
Home Medications
�Medication �Instructions �Recorded �Confirmed �Last Taken �Type
citalopram 20 mg tablet 20 mg PO HS Mental Health/Anxiety 09/10/23 12/14/23 Unknown History
ferrous sulfate 325 mg (65 mg 325 mg PO DAILY supplement 09/10/23 12/14/23 Unknown History
iron) tablet
levothyroxine 88 mcg tablet 88 mcg PO DAILY hypothyroidism 09/10/23 12/14/23 Unknown History
memantine 5 mg tablet 5 mg PO DAILY cognition 09/10/23 12/14/23 Unknown History
multivitamin-ferrous 1 tab PO HS supplement 09/10/23 12/14/23 Unknown History
fumarate-folic acid 18 mg-400 mcg
tablet (Centrum Women)
rosuvastatin 20 mg tablet 20 mg PO HS high cholesterol 09/10/23 12/14/23 Unknown History
cefdinir 300 mg capsule 300 mg PO BID #14 caps 12/09/23 12/14/23 12/14/23 Rx
Citracal 1 tab PO HS Gastrointestinal Issue 12/14/23 12/14/23 Unknown History
cholecalciferol (vitamin D3) 25 25 mcg PO HS Supplement 12/14/23 12/14/23 Unknown History
mcg (1,000 unit) tablet
meloxicam 15 mg tablet 15 mg PO HS Pain 12/14/23 12/14/23 Unknown History
omeprazole 20 mg capsule,delayed 20 mg PO DAILY Gastrointestinal 12/14/23 12/14/23 Unknown History
release Issue
Review of Systems
-
History Source: Patient
All other systems: Negative unless noted
Constitutional: Fatigue
Respiratory: Cough and Trouble Breathing
Neuro: Weakness
Vitals / Labs / Diagnostic Testing
Vital Signs
Temp Pulse Resp BP Pulse Ox
99.8 F 92 20 121/80 97
12/15/23 07:10 12/15/23 15:25 12/15/23 15:25 12/15/23 07:10 12/15/23 15:25
Lab Data
12/15/23 06:45
12/15/23 06:45
Microbiology
12/14/23 16:40 Nasal Swab Influenza Types A & B (MAYA) - Final
Negative for Influenza A & B, NAAT
Negative results must be combined with clinical observations
and patient history.
Nucleic Acid Amplification test (NAAT)performed on the
[employer] platform.
Diagnostic Testing:
Physical Exam
-
HEENT: Normocephalic, Moist Mucous Membranes and Thrush (n)
Cardiovascular: Regular Rhythm, Peripheral Edema (n), Calf Tenderness (n) and JVD (n)
Respiratory: Rales (L base) and Non-Labored Respirations
GI: Soft, Non Distended and Non Tender
Neurology: Awake, Oriented and No Motor Deficits
Skin: Warm
General: Respiratory Distress (n)
Assessment
-
Assessment:
Mrs Emani Brink is a 78/W adm 12-13 with 4-5 d h/o mild nonproductive cough, episodic wheezing and orthopnea. Seen in the ER on 12/08 for an unwitnessed fall, had negative CT head/neck, negative pelvic and rib x-rays, reported some dysuria and d/c
on cefdinir 300 mg twice daily x 7 days. PMH positive for moderate dementia-moderate, former smoker (quit 1974), UTIs, hypothyroidism, depression, chronic ambulatory dysfunction (uses walker). At ER, CXR with L sided effusion
Impression:
L sided effusion (increasing size)/infiltrate
Recent fall: CXR 12-08 with small L pleural effusion (negative CXR Aug 2023)
Acute bronchitis with reported bronchospasm
Note past h/o remote smoking
OP dysphagia, potential asp pneumonia/bronchitis
Recent use of cefdinir for presumed UTI since 12-08
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
Dementia-moderate
HLD
UTIs
Hypothyroidism
Depression
Precancerous skin lesion with removal (nose)
Chronic ambulatory dysfunction uses walker at baseline
Hip replacement
Hysterectomy
Appendectomy
Lasik eye surgery
Remote h/o smoking (quit 1974)
Obesity
Plan:
O2 protocol to keep POx>=92%
Not on home O2
Asp precs
IS, acapella
DNs qid and prn
Guaifenesin
Observe off systemic CS for now
L sided effusion (increasing size)/infiltrate
Recent fall: CXR 12-08 with small L pleural effusion (negative CXR Aug 2023)
Acute bronchitis with reported bronchospasm
Recent use of cefdinir for presumed UTI since 12-08
L chest US 12-14: moderate L pleural effusion, LLL consolidation. Films reviewed, no loculations
For L thoracentesis by IRad
Added L PF hematocrit for completeness given recent fall with small L PF which has enlarged and Hct down from 13 to 11.2 since adm
Blood cx added
Sputum cx added
Continue empiric amp/sulb and po doxyc, started on adm 12-13
Speech evaluation appreciated: OP dysphagia, rec CSE, strict asp precs, puree diet/thin liquids
--- NOTE | 2023-12-15 16:04 | PTOTSP ---
SPEECH THERAPY SWALLOW EVALUATION:
Patient exhibits clinical signs of oropharyngeal dysphagia, likely chronic related to dementia and exacerbated by current pneumonia and recent UTI. Patient is at high risk for aspiration and related complications given severe confusion and tenuous
respiratory status. Recommend instrumental assessment of swallow function via Videofluoroscopic Swallowing Study to further assess swallow physiology. Given chronicity of dysphagia, patient appears safe to continue oral diet prior to VFSS. Recommend
diet downgrade to IDDSI Level 4 Puree diet, thin liquids. Meds crushed in puree. Strict aspiration precautions: 1:1 assist and verbal/tactile cues to facilitate feeding; HOB 90; NO straw; Only feed when patient awake/alert; Slow rate; Small
bites/sips; Oral care 3x/day; Should patient exhibit signs concerning for aspiration even with these precautions, or exhibit a decline in respiratory or mental status, recommend d/c oral diet and make NPO prior to VFSS. Speech therapy to follow,
assess diet tolerance and modify as appropriate, provide further recommendations following VFSS, and provide caregiver training regarding aspiration risks/precautions.
RECOMMEND:
1) Videofluoroscopic Swallowing Study
2) downgrade to IDDSI Level 4 Puree diet, thin liquids
3) Meds crushed in puree
4) Strict aspiration precautions: 1:1 assist and verbal/tactile cues to facilitate feeding; HOB 90; NO straw; Only feed when patient awake/alert; Slow rate; Small bites/sips; Oral care 3x/day; Should patient exhibit signs concerning for aspiration
even with these precautions, or exhibit a decline in respiratory or mental status, recommend d/c oral diet and make NPO prior to VFSS
5) Speech Therapy to follow
--- NOTE | 2023-12-15 16:14 | CM ---
Met with pt at bedside
Lives with her at [facility] independent living
has care takers during the day for self and -assist with adl's, cleaning
DME - none
SNF/HH - denies past history
Has ride at d/c
PCP - Sindhu Conley
Pharm - [facility]
Pend PT/OT
Plan - anticipate home with HH vs SNF
[2023-12-15] MEDS: LOVENOX 40 MG SC (17:07)
[2023-12-15] MEDS: VITAMIN D3 (cholecalciferol) 25 MCG PO (21:15)
[2023-12-15] MEDS: CELEXA 20 MG PO (21:15)
[2023-12-15] MEDS: CRESTOR 20 MG PO (21:15)
[2023-12-15] MEDS: MELATONIN 5 MG PO (21:15)
[2023-12-15 23:00] VITALS: BP 141/74
[2023-12-16] MEDS: UNASYN IV ×4 (01:40→20:08)
[2023-12-16] MEDS: SYNTHROID 88 MCG PO (05:48)
[2023-12-16 06:57] LABS: % Basophils 0.4 % (0-2); % Eosinophils 0.2 % (0-6); % Immature Granulocytes 0.5 % (0-0.5); % Lymphocytes 8.3 % (20.5-51.1); % Monocytes 8.6 % (1.7-9.3); Absolute Immature Granulocytes 0.1 10^3/uL (0-0.05); Absolute Lymphocytes 0.8 10^3/uL (1.2-3.4); Absolute Monocytes 0.9 10^3/uL (0.1-0.6); Absolute Neutrophils 8.2 10^3/uL (1.4-6.5); Hematocrit 33.5 % (37.0-47.0); Hemoglobin 10.9 g/dL (12.0-16.0); Mean Corp Hgb Conc. 32.5 g/dL (33.0-37.0); Mean Corpuscular Hgb 28.8 pg (27.0-31.0); Mean Corpuscular Volume 88.6 fL (81.0-99.0); Nucleated Red Blood Cells % 0 %; Platelet Count 205 10^3/uL (130-400); Red Blood Cell Count 3.78 10^6/uL (4.20-5.40); Red Cell Dist. Width 15.1 % (11.5-14.5)
[2023-12-16 07:21] LABS: Blood Urea Nitrogen 19 mg/dl (7-17); Calcium 9.2 mg/dl (8.4-10.2); Carbon Dioxide 25 mmol/L (22-30); Chloride 102 mmol/L (98-107); Estimated Creatinine Clearance 70 ml/min; Glucose 109 mg/dl (70-99); Potassium 3.8 mmol/L (3.5-5.1); Sodium 136 mmol/L (135-145); eGFR > 60.00
[2023-12-16] MEDS: DUONEB 3 ML INH ×3 (07:24→20:59)
[2023-12-16 07:34] VITALS: BP 128/91
[2023-12-16 09:10] VITALS: BP 124/107; BP_SYST 92
[2023-12-16 09:45] VITALS: BP 140/70
[2023-12-16 10:19] LABS: Body Fluid pH 7.21
[2023-12-16] MEDS: PROTONIX 40 MG PO (10:27)
[2023-12-16] MEDS: VIBRAMYCIN 100 MG PO ×2 (10:27→21:33)
[2023-12-16] MEDS: FEOSOL 325 MG PO (10:28)
[2023-12-16] MEDS: MUCINEX 600 MG PO ×2 (10:28→20:08)
[2023-12-16 10:43] LABS: Body Fluid Glucose 46 mg/dl; Body Fluid Protein 4.8 g/dl
[2023-12-16 11:16] LABS: Body Fluid LDH 2036 U/L
[2023-12-16 11:19] LABS: Body Fluid Hematocrit 2.6 %
[2023-12-16 11:21] LABS: Body Fluid Mononuclear 72.5 %; Body Fluid Polymorphonuclear 27.5 %; Body Fluid WBC 2994 /CUMM
[2023-12-16] MEDS: DUONEB INH ×2 (11:41→15:52)
[2023-12-16 11:53] LABS: Body Fluid Second Tech EM
--- NOTE | 2023-12-16 12:17 | W.PN.PUL3 ---
Today's Communication / Plan
-
Continue ABx
Follow up CT Chest
Wean down O2 to keep sats >90-94%
Wean down DuoNebs from QID to BID as she does not take inhalers at home and unclear if she is improving with the nebs
Incentive spirometer
Pulmonary service to continue to follow along
Assessment
-
Assessment:
Mrs Emani Brink is a 78/W adm 12-13 with 4-5 d h/o mild nonproductive cough, episodic wheezing and orthopnea. Seen in the ER on 12/08 for an unwitnessed fall, had negative CT head/neck, negative pelvic and rib x-rays, reported some dysuria and d/c
on cefdinir 300 mg twice daily x 7 days. PMH positive for moderate dementia-moderate, former smoker (quit 1974), UTIs, hypothyroidism, depression, chronic ambulatory dysfunction (uses walker). At ER, CXR with L sided effusion
Impression:
L sided complicated parapneumonic effusion with L-sided infiltrate s/p thoracentesis today with 1.1L of exudative fluid
Recent fall: CXR 12-08 with small L pleural effusion (negative CXR Aug 2023), and retrocardiac opacity seen on prior CXR from 09/09/2023 (?aspiration)
CAP with parapneumonic effusion
Acute bronchitis with reported bronchospasm
Note past h/o remote smoking
OP dysphagia, potential asp pneumonia/bronchitis
Recent use of cefdinir for presumed UTI since 12-08
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
Dementia-moderate
HLD
UTIs
Hypothyroidism
Depression
Precancerous skin lesion with removal (nose)
Chronic ambulatory dysfunction uses walker at baseline
Hip replacement
Hysterectomy
Appendectomy
Lasik eye surgery
Remote h/o smoking (quit 1974)
Obesity
Plan:
O2 protocol to keep POx>=92%
Not on home O2
Asp precs
IS, acapella
DNs qid and prn
Guaifenesin
Observe off systemic CS for now
L sided effusion (increasing size)/infiltrate
Recent fall: CXR 12-08 with small L pleural effusion (no effusion seen on prior CXR Aug 2023, but there was a retrocardiac opacity seen at that time concerning for pneumonia)
Acute bronchitis with reported bronchospasm
Recent use of cefdinir for presumed UTI since 12-08
L chest US 12-14: moderate L pleural effusion, LLL consolidation. Films reviewed, no loculations
Underwent left-sided thoracentesis today showing exudative fusion effusion with 2994 WBC and low glucose at 46, elevated LD at 2035 � given that fluid was serosanguineous this is not an empyema but is still concerning for a complicated
parapneumonic effusion. Recommend to continue antibiotics with Unasyn + Doxy and plan for at least 14 days; can consider ID consult if additional antibiotic duration recommendations are needed
Left pleural fluid hematocrit is low (2.6) and not consistent with hemothorax
Ct Chest done today --> shows residual BARBARA loculated effusion with bilateral pleural effusions --> diurese as tolerated and follow up official CT chest read
Follow up blood cx - NGTD
Obtain sputum cx; check legionella and Strep PNA urine antigens
Follow up pleural fluid Cx - NGTD
Continue empiric amp/sulb and po doxyc, started on adm 12-13
Speech evaluation appreciated: OP dysphagia, rec VSS, strict asp precs, puree diet/thin liquids
Pulmonary service will continue to follow along
Total time spent today was 35 minutes for this encounter. Time includes reviewing laboratory test/imaging results, reviewing pertinent medical records, obtaining and reviewing medical history, performing an appropriate exam, ordering medications,
tests and procedures. Time also includes documentation of this encounter, coordinating patient care and communicating with other healthcare professionals. Total time does not include separately billed tests performed on this date of service.
Data:
CXR 12-16-2023:
1. No pneumothorax post left thoracentesis. Small volume residual left pleural fluid with adjacent atelectasis.
2. Minimal right pleural effusion.
3. At least moderate hiatal hernia.
Subjective Data
-
Date of Service:
Date of Service: December 16, 2023
Chief Complaint: Pulmonary Follow Up
Subjective:
Patient underwent thoracentesis today removing 1.1 L of serosanguineous, exudative fluid. Post-thoracentesis CXR shows no evidence of pneumothorax. She remains on supplemental O2 at 4 L/min saturating 97%. I saw the patient this early afternoon
and she is on 3.5 L/min nasal cannula. She says she feels okay but she is also a poor historian. She is in no acute distress breathing comfortably.
Review of Systems
General: Other (Unable to obtain due to patient's acute clinical status/poor historian)
Objective Data
Data Reviewed
Vital Signs / I&O / Oxygen:
Vital Signs
Temp Pulse Resp BP Pulse Ox
97.8 F 90 20 140/70 97
12/16/23 09:10 12/16/23 09:45 12/16/23 09:45 12/16/23 09:45 12/16/23 09:10
Intake and Output
12/15/23 12/16/23 12/17/23
06:59 06:59 06:59
Intake Total 320 / 320 600 / 600
Balance 320 / 320 600 / 600
SaO2 97
Nasal Cannula flow liters per 4
minute
Physical Exam
General: Respiratory Distress (Negative) and Comfortable
HEENT: Normocephalic and Anicteric
Cardiovascular: S1-S2 and Peripheral Edema (Negative)
Respiratory: Wheeze (Negative), Crackles (Left midlung region), Rhonchi (Negative) and Non-Labored Respirations
GI: Soft, Non Distended and Non Tender
Neurology: Awake and Alert
Skin: Warm, Dry and Cyanosis (Negative)
Labs/Micro/Reports
Lab Data
12/16/23 06:32
12/16/23 06:32
Microbiology
12/16/23 09:26 Pleural Fluid Gram Stain - Preliminary
12/14/23 21:28 Nose MRSA Screen - Final
No Methicillin Resistant Staphylococcus aureus isolated.
12/14/23 16:40 Nasal Swab Influenza Types A & B (MAYA) - Final
Negative for Influenza A & B, NAAT
Negative results must be combined with clinical observations
and patient history.
Nucleic Acid Amplification test (NAAT)performed on the
[employer] platform.
[2023-12-16] MEDS: TYLENOL 650 MG PO (14:07)
[2023-12-16 15:30] VITALS: BP 133/77
[2023-12-16 15:30] LABS: Procalcitonin 0.09 ng/ml (0.0-0.25)
[2023-12-16 15:33] LABS: NT-proBNP 77.7 pg/ml
--- NOTE | 2023-12-16 15:52 | PTOTSP ---
Video Swallow Examination
Mastication and bolus formation was prompt and efficient, but patient repeatedly halted AP transfer with suspected motor planning difficulty. Otherwise, thin and thick liquids were only mildly delayed in oral transfer. Trace to mild oral stasis on
tongue surface. No anterior loss or posterior leakage.
Swallow onset grossly within functional limits though thin and mildly thick liquids by straw did reach pryform sinuses at times prior to swallow onset. There was full laryngeal vestibular closure without instanced of laryngeal penetration or
aspiration. Trace pharyngeal stasis.
Observation of esophagus in upright position revealed retained contrast that was slow to empty, and improved following liquid wash.
Recommend
1. Continue with IDDSI 4 (pureed) diet and Thin Liquids
2. Supervision and Assist with set up and feeding as needed given cognitive deficits.
3. Meds crushed in applesauce.
4. Aspiration precautions.
ST will follow to ensure tolerance to diet/advance as appropriate.
[2023-12-16] MEDS: DECADRON 4 MG IV ×2 (16:40→21:32)
[2023-12-16] MEDS: LOVENOX 40 MG SC (16:41)
--- NOTE | 2023-12-16 16:57 | W.PN.HOSP.TC ---
Today's Communication/Plan
-
Oxygen supplementation
Empiric antibiotics
Corticosteroids/insulin basal bolus
CT scan of the chest.
Monitor for pleural fluid reaccumulation
Pleural fluid pathology
Assessment / Plan
Assessment / Plan
Ms. Emani Brink is a 78 yo woman with hx dementia, HLD, resident of [facility] presents to the ER with increased cough and wheezing over past 24 hours. She was seen in the ER on 12/08, diagnosed with a UTI and discharged on Cefdinir.
ER visit was for an unwitnessed fall where she was found near the bed. Work-up without fracture.
Impression:
Acute hypoxic respiratory insufficiency.
Suspected pneumonia. Left side
Aspiration risk.
Left pleural effusion.
-Status post left thoracentesis 12/23 1100 cc exudative.
Recent UTI with Klebsiella 12/09/2023
Conditions prior to admission:
Dementia moderate without behavioral disturbances
Hypothyroidism
Dyslipidemia
Depression
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
Plan:
Acute hypoxic respiratory failure
Noted with pulse ox and high 80s on room air
Exam with coarse rhonchi and wheezing on 12/18
Video swallow evaluation with no evidence of overt aspiration and recommended continue pur�ed diet and thin liquids. Monitor closely with aspiration precautions
Status post left thoracentesis 11/2010 100 cc exudative
Follow-up chest x-ray with relatively clear lung thompson.
Normal procalcitonin.
Given exudative pleural effusion, check CT scan of the chest including PE protocol given hypoxic
Pleural fluid pathology.
Monitor for fluid reaccumulation.
Continue empiric antibiotics covering aspiration and community-acquired pathogens: Unasyn/doxycycline.
Given significant wheezing on exam will add IV Decadron with basal bolus insulin.
No clinical evidence of volume overload.
Procedure BNP within normal limits
Echocardiogram with preserved biventricular function.
#Recent UTI grew Klebsiella 12/09/2023
#History of UTIs
-Has been on cefdinir 300 mg past 5 days 2 more days left( will stop as going on unasyn)
#Hx dementia-moderate
Oriented to first and last name, Robert her son but she is unsure of his relation, not place or year
-Fall precautions
-Continue memantine 5 mg daily
#Hypothyroidism
-Continue levothyroxine
#HLD
-Continue Crestor 20 mg daily,
#Depression
cont citalopram 20 mg daily
#Chronic ambulatory dysfunction uses walker at baseline
DVT proph
Subcu Lovenox
Anticipated Discharge: 24 - 48 hours
Subjective/Interval History
-
Date of Service: December 16, 2023
Objective Data
-
Labs:
Laboratory Results
12/16/23
06:32
WBC 10.0
Hgb 10.9 L
Hct 33.5 L
Plt Count 205
Sodium 136
Potassium 3.8
Chloride 102
Carbon Dioxide 25
BUN 19 H
Creatinine 0.7
Glucose 109 H
Calcium 9.2
Vital Signs:
Vital Signs
Temp Pulse Resp BP Pulse Ox
97.5 F 92 18 133/77 95
12/16/23 15:30 12/16/23 15:30 12/16/23 15:30 12/16/23 15:30 12/16/23 15:30
I&O
12/15/23 12/16/23 12/17/23
06:59 06:59 06:59
Intake Total 320 / 320 600 / 600
Balance 320 / 320 600 / 600
Physical Exam
-
General: Well Developed and No Apparent Distress
HEENT: Normocephalic, Atraumatic and Moist Mucous Membranes
Respiratory: Wheezes and Rhonchi
Cardiac: Regular Rhythm and S1/S2; Negative Murmur, Rub or Gallop
GI: Soft, Nontender, Nondistended and Normal Bowel Sounds; Negative Organomegaly
Rectal: Deferred by Provider
Musculoskeletal: No Clubbing, No Cyanosis and No Edema
Skin: Negative Rash
Neuro: Nonfocal/Grossly Intact
[2023-12-16 17:02] LABS: Glucose - Point of Care 136 mg/dl (70-99)
[2023-12-16] MEDS: NOVOLOG FLEXPEN-LOW RESISTANCE SC (17:02)
[2023-12-16 21:08] LABS: Glucose - Point of Care 165 mg/dl (70-99)
[2023-12-16] MEDS: CELEXA 20 MG PO (21:32)
[2023-12-16] MEDS: MELATONIN 5 MG PO (21:32)
[2023-12-16] MEDS: CRESTOR 20 MG PO (21:32)
[2023-12-16] MEDS: VITAMIN D3 (cholecalciferol) 25 MCG PO (21:32)
[2023-12-16] MEDS: LOVENOX 50 MG SC (21:33)
[2023-12-16 23:06] VITALS: BP 122/71
[2023-12-17] MEDS: UNASYN IV ×3 (02:02→13:21)
[2023-12-17] MEDS: DECADRON 4 MG IV ×3 (05:26→16:46)
[2023-12-17] MEDS: SYNTHROID 88 MCG PO (05:27)
[2023-12-17 07:00] VITALS: BP 160/106
[2023-12-17 07:12] LABS: % Basophils 0.1 % (0-2); % Immature Granulocytes 0.6 % (0-0.5); % Lymphocytes 5.1 % (20.5-51.1); % Monocytes 3.9 % (1.7-9.3); % Neutrophils 90.3 % (42.2-75.2); Absolute Immature Granulocytes 0.1 10^3/uL (0-0.05); Absolute Lymphocytes 0.5 10^3/uL (1.2-3.4); Absolute Monocytes 0.4 10^3/uL (0.1-0.6); Absolute Neutrophils 9.2 10^3/uL (1.4-6.5); Hematocrit 32.2 % (37.0-47.0); Hemoglobin 10.6 g/dL (12.0-16.0); Mean Corp Hgb Conc. 32.9 g/dL (33.0-37.0); Mean Corpuscular Hgb 28.8 pg (27.0-31.0); Mean Corpuscular Volume 87.5 fL (81.0-99.0); Mean Platelet Volume 9.9 fL (7.4-10.4); Nucleated Red Blood Cells % 0 %; Platelet Count 216 10^3/uL (130-400); Red Blood Cell Count 3.68 10^6/uL (4.20-5.40); Red Cell Dist. Width 14.7 % (11.5-14.5); White Blood Cell Count 10.2 10^3/uL (4.8-10.8)
[2023-12-17] MEDS: DUONEB 3 ML INH ×2 (07:26→18:11)
[2023-12-17 07:56] LABS: Glucose - Point of Care 153 mg/dl (70-99)
[2023-12-17 08:22] LABS: Blood Urea Nitrogen 19 mg/dl (7-17); Calcium 9.2 mg/dl (8.4-10.2); Carbon Dioxide 27 mmol/L (22-30); Chloride 104 mmol/L (98-107); Estimated Creatinine Clearance 82 ml/min; Glucose 131 mg/dl (70-99); Potassium 3.7 mmol/L (3.5-5.1); Sodium 139 mmol/L (135-145); eGFR > 60.00
[2023-12-17] MEDS: PROTONIX 40 MG PO (09:01)
[2023-12-17] MEDS: LOVENOX 90 MG SC (09:02)
[2023-12-17] MEDS: FEOSOL 325 MG PO (09:02)
[2023-12-17] MEDS: MUCINEX 600 MG PO ×2 (09:02→20:25)
[2023-12-17] MEDS: VIBRAMYCIN 100 MG PO ×2 (09:02→21:39)
[2023-12-17] MEDS: NOVOLOG FLEXPEN-LOW RESISTANCE 1 UNITS SC ×3 (09:07→16:30)
[2023-12-17 10:09] LABS: Glycohemoglobin (HgbA1c) 5.7 % (4.0-5.6)
--- NOTE | 2023-12-17 10:10 | CM ---
Addendum entered by GAMA Tang 12/19/23 09:31:
Late entry note, received return call from Gretta at [facility] on 10/18/23 who stated that she has no beds coming up at her SNF. Will discuss with patient to obtain other options.
Original Note:
Reviewed chart, PT notes as well as OT notes. Patient per medical staff may need SNF. Placed a call to patient's daughter, to determine facilities however there was no answer, and outgoing message stated that mailbox was full, therefore, no message
could be left. Will send referral to SNF at [facility] just in the event that she wants to do therapy where she resides.
Plan: Case management will continue to follow and assist with discharge planning. Will make referral to [facility].
--- NOTE | 2023-12-17 12:01 | W.PN.PUL3 ---
Today's Communication / Plan
-
Continue ABx
Continue AC --> assure NOAC is affordable
Wean down O2 to keep sats >90-94%
Continue DuoNebs BID as she does not take inhalers at home and unclear if she is improving with the nebs
Diurese --> starting IV lasix tonight as she has rales on exam and has large pleural effusions on CTA chest from yesterday
Incentive spirometer encouraged
Pulmonary service to continue to follow along
Assessment
-
Assessment:
Mrs Emani Brink is a 78/W adm 12-13 with 4-5 d h/o mild nonproductive cough, episodic wheezing and orthopnea. Seen in the ER on 12/08 for an unwitnessed fall, had negative CT head/neck, negative pelvic and rib x-rays, reported some dysuria and d/c
on cefdinir 300 mg twice daily x 7 days. PMH positive for moderate dementia-moderate, former smoker (quit 1974), UTIs, hypothyroidism, depression, chronic ambulatory dysfunction (uses walker). At ER, CXR with L sided effusion
Impression:
L sided complicated parapneumonic effusion with L-sided infiltrate s/p thoracentesis on 12/15 with 1.1L of exudative fluid
Recent fall: CXR 12-08 with small L pleural effusion (negative CXR Aug 2023), and retrocardiac opacity seen on prior CXR from 09/09/2023 (?aspiration)
CAP with parapneumonic effusion
Submassive PE involving RUL/RLL/LLL without RV strain
Bilateral pleural effusions with stage
Acute bronchitis with reported bronchospasm
Note past h/o remote smoking
OP dysphagia, potential asp pneumonia/bronchitis
Recent use of cefdinir for presumed UTI since 12-08
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
Dementia-moderate
HLD
UTIs
Hypothyroidism
Depression
Precancerous skin lesion with removal (nose)
Chronic ambulatory dysfunction uses walker at baseline
Hip replacement
Hysterectomy
Appendectomy
Lasik eye surgery
Remote h/o smoking (quit 1974)
Obesity
Plan:
O2 protocol to keep POx>=92%
Not on home O2
Asp precs
IS, acapella
DNs qid and prn
Guaifenesin
Observe off systemic CS for now
L sided effusion (increasing size)/infiltrate
Recent fall: CXR 12-08 with small L pleural effusion (no effusion seen on prior CXR Aug 2023, but there was a retrocardiac opacity seen at that time concerning for pneumonia)
Acute bronchitis with reported bronchospasm
Recent use of cefdinir for presumed UTI since 12-08
L chest US 12-14: moderate L pleural effusion, LLL consolidation. Films reviewed, no loculations
Underwent left-sided thoracentesis today showing exudative fusion effusion with 2994 WBC and low glucose at 46, elevated LD at 2035 � given that fluid was serosanguineous this is not an empyema but is still concerning for a complicated
parapneumonic effusion. Recommend to continue antibiotics with Unasyn/Augmentin + Doxy and plan for at least 14 days; can consider ID consult if additional antibiotic duration recommendations are needed
Left pleural fluid hematocrit is low (2.6) and not consistent with hemothorax
CTA Chest done on 12/15 --> shows residual BARBARA loculated effusion with bilateral pleural effusions + RML/RLL acute PE --> diurese as tolerated and continue systemic AC
TTE with mild pHTN with PASP of 31mmHg assuming a RAP of 3mmHg with normal RV size/Fx; preserved LEF at 55-60% and no regional WMA; trace MR; stage I diastolic dysfunction
Follow up blood cx - NGTD
Obtain sputum cx; check legionella and Strep PNA urine antigens
Follow up pleural fluid Cx - NGTD
Continue empiric Abx amp/sulb and po doxyc, started on adm 12-13, unasyn changed to augmentin on 12/16
Speech evaluation appreciated: OP dysphagia, VSS performed today --> pt recommended for pureed diet with thin liquids; continue asp precs
Pulmonary service will continue to follow along
Total time spent today was 35 minutes for this encounter. Time includes reviewing laboratory test/imaging results, reviewing pertinent medical records, obtaining and reviewing medical history, performing an appropriate exam, ordering medications,
tests and procedures. Time also includes documentation of this encounter, coordinating patient care and communicating with other healthcare professionals. Total time does not include separately billed tests performed on this date of service.
Data:
CTA Chest 12-16-2023:
Pulmonary embolism in the right main pulmonary artery extending into the right lower lobe pulmonary artery. Minimal filling defect in the right upper lobe pulmonary artery and left lower lobe pulmonary artery.
Bilateral pleural effusions. Right greater than left. Adjacent bibasilar atelectasis and/or consolidation.
Moderately large retrocardiac hiatal hernia.
CXR 12-16-2023:
1. No pneumothorax post left thoracentesis. Small volume residual left pleural fluid with adjacent atelectasis.
2. Minimal right pleural effusion.
3. At least moderate hiatal hernia.
Subjective Data
-
Date of Service:
Date of Service: December 17, 2023
Chief Complaint: Pulmonary Follow Up
Subjective:
Patient seen this afternoon. This morning she was still on 3 L/min nasal cannula. Concern for PE and a CTA chest was done showing RUL/RLL PE with b/l pleural effusions with excessive posterolateral membrane collapse. AC started with Eliquis and pt
was able to be weaned to room air after getting therapeutic lovenox this AM.
Review of Systems
General: Other (Unable to obtain due to patient's acute clinical status/poor historian)
Objective Data
Data Reviewed
Vital Signs / I&O / Oxygen:
Vital Signs
Temp Pulse Resp BP Pulse Ox
97.5 F 65 18 160/106 94
12/17/23 07:00 12/17/23 07:29 12/17/23 07:29 12/17/23 07:00 12/17/23 07:29
Intake and Output
12/16/23 12/17/23 12/18/23
06:59 06:59 06:59
Intake Total 600 / 600 360 / 360
Balance 600 / 600 360 / 360
SaO2 94
Nasal Cannula flow liters per 3
minute
Physical Exam
General: Respiratory Distress (Negative) and Comfortable
HEENT: Normocephalic and Anicteric
Cardiovascular: S1-S2 and Peripheral Edema (Negative)
Respiratory: Wheeze (Negative), Crackles (bilaterally), Rhonchi (Negative) and Non-Labored Respirations
GI: Soft, Non Distended and Non Tender
Neurology: Awake and Alert
Skin: Warm, Dry and Cyanosis (Negative)
Labs/Micro/Reports
Lab Data
12/17/23 06:40
12/17/23 06:40
Microbiology
12/16/23 09:26 Pleural Fluid Body Fluid Culture - Preliminary
No Growth After 18-24 Hours
12/16/23 09:26 Pleural Fluid Gram Stain - Preliminary
12/15/23 19:49 Blood/Venous Blood Culture - Preliminary
No Growth in 24 hours- Final report to follow
12/14/23 21:28 Nose MRSA Screen - Final
No Methicillin Resistant Staphylococcus aureus isolated.
12/14/23 16:40 Nasal Swab Influenza Types A & B (MAYA) - Final
Negative for Influenza A & B, NAAT
Negative results must be combined with clinical observations
and patient history.
Nucleic Acid Amplification test (NAAT)performed on the
[employer] platform.
[2023-12-17 12:15] LABS: Glucose - Point of Care 168 mg/dl (70-99)
--- NOTE | 2023-12-17 13:33 | PN.CDI ---
CDI
- -
CDI:
Physician Documentation Request
Admit Date: 12/14/23 19:19
Dear Doctor Bro,
Clinical Indicators:
Patient admitted with suspected pneumonia.
12/13 ED Report, Physical Exam: tachypneic RR 22, mildly labored
O2 Requirements: 2 - 4 L NC
12/15 PN, Impression: Acute hypoxic respiratory insufficiency'
Plan: 'Acute hypoxic respiratory failure Noted with pulse ox and high 80s on room air'
Due to potentially conflicting documentation, please clarify the patient's respiratory status:
Acute hypoxic respiratory failure
Acute hypoxic respiratory insufficiency
Other
Recognized standard criteria for respiratory failure includes:
(Source: [facility] Hospitalist May 2013)
ABGs (1 or more)
�PO2 <60 or RA SpO2 <91%
�PcO2 >50 and pH <7.35
�pO2 decrease or pcO2 increase by 10 mmHg from baseline if known Symptoms:
�Tachypnea, SOB, dyspnea
�Pallor or cyanosis
�Anxiety or restlessness
�Use of accessory muscles
�Retractions (grunting in newborns)
�Unable to speak in complete sentences
Supplemental O2 requirement of 40% (5LPM) or more Intubation is not required
Use of terms such as suspected, likely, concern for, or probable (associated with a specific diagnosis that is being evaluated, monitored, or treated as if it exists) are acceptable and can be coded in the inpatient setting, when documented at the
time of discharge.
Thank you,
PENNY Jacobs RN
CDI Specialist
available via tiger text
Please use your independent medical judgment in providing your response.
[2023-12-17 14:35] VITALS: PULSE 78; O2SAT 91
[2023-12-17 15:00] VITALS: BP 115/66
[2023-12-17 16:15] LABS: Glucose - Point of Care 154 mg/dl (70-99)
--- NOTE | 2023-12-17 16:56 | W.PN.HOSP.TC ---
Today's Communication/Plan
-
Transition to oral anticoagulation
Peripheral Doppler
Wean off oxygen.
Steroid taper
Transition to oral antibiotics
Increase activity
Assessment / Plan
Assessment / Plan
Ms. Emani Brink is a 78 yo woman with hx dementia, HLD, resident of [facility] presents to the ER with increased cough and wheezing over past 24 hours. She was seen in the ER on 12/08, diagnosed with a UTI and discharged on Cefdinir.
ER visit was for an unwitnessed fall where she was found near the bed. Work-up without fracture.
Impression:
Acute hypoxic respiratory insufficiency.
Acute pulmonary embolism
Suspected pneumonia. Left side
Aspiration risk.
Left pleural effusion.
-Status post left thoracentesis 12/23 1100 cc exudative.
Recent UTI with Klebsiella 12/09/2023
Conditions prior to admission:
Dementia moderate without behavioral disturbances
Hypothyroidism
Dyslipidemia
Depression
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
Plan:
Acute hypoxic respiratory failure
Noted with pulse ox and high 80s on room air
Exam with coarse rhonchi and wheezing on 12/18
Video swallow evaluation with no evidence of overt aspiration and recommended continue pur�ed diet and thin liquids. Monitor closely with aspiration precautions
Status post left thoracentesis 11/2010 100 cc exudative
Follow-up chest x-ray with relatively clear lung thompson.
Normal procalcitonin.
Given exudative pleural effusion, check CT scan of the chest including PE protocol given hypoxic
CT chest PE positive for pulmonary embolism in the right main pulmonary artery extending into the right lower lobe pulmonary artery. Minimal filling defect in the right upper lobe pulmonary artery and left lower lobe pulmonary artery.
Initiated anticoagulation with Lovenox on 12/15. Plan to transition to Eliquis on 12/16.
Check lower extremity Doppler.
Follow pleural fluid pathology.
Monitor for fluid reaccumulation.
Continue empiric antibiotics covering aspiration and community-acquired pathogens: Changing Unasyn to Augmentin on 12/16. Continue doxycycline.
Given significant wheezing on exam will add IV Decadron with basal bolus insulin. Continue taper
No clinical evidence of volume overload.
Procedure BNP within normal limits
Echocardiogram with preserved biventricular function.
#Recent UTI grew Klebsiella 12/09/2023
#History of UTIs
-Has been on cefdinir 300 mg past 5 days 2 more days left( will stop as going on unasyn)
#Hx dementia-moderate
Oriented to first and last name, Robert her son but she is unsure of his relation, not place or year
-Fall precautions
-Continue memantine 5 mg daily
#Hypothyroidism
-Continue levothyroxine
#HLD
-Continue Crestor 20 mg daily,
#Depression
cont citalopram 20 mg daily
#Chronic ambulatory dysfunction uses walker at baseline
DVT proph
Subcu Lovenox
Anticipated Discharge: 24 - 48 hours
Subjective/Interval History
-
Date of Service: December 17, 2023
Objective Data
-
Labs:
Laboratory Results
12/17/23
06:40
WBC 10.2
Hgb 10.6 L
Hct 32.2 L
Plt Count 216
Sodium 139
Potassium 3.7
Chloride 104
Carbon Dioxide 27
BUN 19 H
Creatinine 0.6
Glucose 131 H
Calcium 9.2
Vital Signs:
Vital Signs
Temp Pulse Resp BP Pulse Ox
98.4 F 76 16 115/66 91
12/17/23 15:00 12/17/23 15:00 12/17/23 15:00 12/17/23 15:00 12/17/23 15:00
I&O
12/16/23 12/17/23 12/18/23
06:59 06:59 06:59
Intake Total 600 / 600 360 / 360
Balance 600 / 600 360 / 360
Physical Exam
-
General: Well Developed and No Apparent Distress
HEENT: Normocephalic, Atraumatic and Moist Mucous Membranes
Respiratory: Clear to Auscultation
Cardiac: Regular Rhythm and S1/S2; Negative Murmur, Rub or Gallop
GI: Soft, Nontender, Nondistended and Normal Bowel Sounds; Negative Organomegaly
Rectal: Deferred by Provider
Musculoskeletal: No Clubbing, No Cyanosis and No Edema
Skin: Negative Rash
Neuro: Nonfocal/Grossly Intact
[2023-12-17] MEDS: LASIX 20 MG IV (20:25)
[2023-12-17] MEDS: ELIQUIS 10 MG PO (20:25)
[2023-12-17] MEDS: AUGMENTIN 875 MG/125 MG 1 TABLET PO (20:25)
[2023-12-17 21:05] LABS: Glucose - Point of Care 217 mg/dl (70-99)
[2023-12-17] MEDS: MELATONIN 5 MG PO (21:39)
[2023-12-17] MEDS: CELEXA 20 MG PO (21:39)
[2023-12-17] MEDS: VITAMIN D3 (cholecalciferol) 25 MCG PO (21:39)
[2023-12-17] MEDS: CRESTOR 20 MG PO (21:39)
[2023-12-17 22:51] VITALS: BP 136/83
[2023-12-18] MEDS: SYNTHROID 88 MCG PO (05:54)
[2023-12-18] MEDS: DECADRON 4 MG IV (05:55)
[2023-12-18 07:00] VITALS: BP 131/68
[2023-12-18 07:29] LABS: % Basophils 0.1 % (0-2); % Immature Granulocytes 0.6 % (0-0.5); % Lymphocytes 4.9 % (20.5-51.1); % Monocytes 4.4 % (1.7-9.3); Absolute Immature Granulocytes 0.1 10^3/uL (0-0.05); Absolute Lymphocytes 0.6 10^3/uL (1.2-3.4); Absolute Monocytes 0.5 10^3/uL (0.1-0.6); Absolute Neutrophils 10.7 10^3/uL (1.4-6.5); Hematocrit 30.6 % (37.0-47.0); Mean Corp Hgb Conc. 32.7 g/dL (33.0-37.0); Mean Corpuscular Hgb 28.3 pg (27.0-31.0); Mean Corpuscular Volume 86.7 fL (81.0-99.0); Nucleated Red Blood Cells % 0 %; Platelet Count 255 10^3/uL (130-400); Red Blood Cell Count 3.53 10^6/uL (4.20-5.40); Red Cell Dist. Width 14.9 % (11.5-14.5); White Blood Cell Count 11.9 10^3/uL (4.8-10.8)
[2023-12-18 07:59] LABS: Blood Urea Nitrogen 27 mg/dl (7-17); Calcium 9.6 mg/dl (8.4-10.2); Carbon Dioxide 27 mmol/L (22-30); Chloride 102 mmol/L (98-107); Estimated Creatinine Clearance 61 ml/min; Glucose 127 mg/dl (70-99); Magnesium 2.2 mg/dl (1.6-2.3); Phosphorus 3.4 mg/dl (2.5-4.5); Potassium 3.6 mmol/L (3.5-5.1); Sodium 137 mmol/L (135-145); eGFR > 60.00
[2023-12-18 08:01] LABS: Glucose - Point of Care 140 mg/dl (70-99)
[2023-12-18] MEDS: MUCINEX 600 MG PO ×2 (08:08→20:11)
[2023-12-18] MEDS: ELIQUIS 10 MG PO ×2 (08:08→20:11)
[2023-12-18] MEDS: FEOSOL 325 MG PO (08:08)
[2023-12-18] MEDS: LASIX 40 MG IV (08:08)
[2023-12-18] MEDS: PROTONIX 40 MG PO (08:08)
[2023-12-18] MEDS: AUGMENTIN 875 MG/125 MG 1 TABLET PO ×2 (08:09→20:11)
[2023-12-18] MEDS: NOVOLOG FLEXPEN-LOW RESISTANCE SC ×3 (08:10→16:47)
[2023-12-18] MEDS: DUONEB INH (08:45)
[2023-12-18] MEDS: VIBRAMYCIN 100 MG PO ×2 (10:51→21:27)
--- NOTE | 2023-12-18 11:22 | W.PN.PUL3 ---
Today's Communication / Plan
-
Continue ABx
Continue AC --> assure NOAC is affordable
Wean down O2 to keep sats >90-94%
Continue DuoNebs BID as she does not take inhalers at home and unclear if she is improving with the nebs
Diurese --> started IV lasix on 12/16 as she has rales on exam and has large pleural effusions on CTA chest from 12/16/2023
Steroids started today due to wheezing per hospitalist
Incentive spirometer encouraged
PT/OT recommended
Pulmonary service to continue to follow along
Assessment
-
Assessment:
Mrs Emani Brink is a 78/W adm 12-13 with 4-5 d h/o mild nonproductive cough, episodic wheezing and orthopnea. Seen in the ER on 12/08 for an unwitnessed fall, had negative CT head/neck, negative pelvic and rib x-rays, reported some dysuria and d/c
on cefdinir 300 mg twice daily x 7 days. PMH positive for moderate dementia-moderate, former smoker (quit 1974), UTIs, hypothyroidism, depression, chronic ambulatory dysfunction (uses walker). At ER, CXR with L sided effusion
Impression:
L sided complicated parapneumonic effusion with L-sided infiltrate s/p thoracentesis on 12/15 with 1.1L of exudative fluid
Recent fall: CXR 12-08 with small L pleural effusion (negative CXR Aug 2023), and retrocardiac opacity seen on prior CXR from 09/09/2023 (?aspiration)
CAP with parapneumonic effusion
Submassive PE involving RUL/RLL/LLL without RV strain
Bilateral pleural effusions with stage
Acute bronchitis with reported bronchospasm
Note past h/o remote smoking
OP dysphagia, potential asp pneumonia/bronchitis
Recent use of cefdinir for presumed UTI since 12-08
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
Dementia-moderate
HLD
UTIs
Hypothyroidism
Depression
Precancerous skin lesion with removal (nose)
Chronic ambulatory dysfunction uses walker at baseline
Hip replacement
Hysterectomy
Appendectomy
Lasik eye surgery
Remote h/o smoking (quit 1974)
Obesity
Plan:
O2 protocol to keep POx>=90-94%
Not on home O2
Asp precs
IS, acapella
DNs BID and prn
Guaifenesin
Patient was apparently wheezing today and the hospitalist added systemic steroids with Decadron � patient currently on Decadron 2 mg IV q12hr - wean as tolerated
L sided effusion (increasing size)/infiltrate
Recent fall: CXR 12-08 with small L pleural effusion (no effusion seen on prior CXR Aug 2023, but there was a retrocardiac opacity seen at that time concerning for pneumonia)
Acute bronchitis with reported bronchospasm
Recent use of cefdinir for presumed UTI since 12-08
L chest US 12-14: moderate L pleural effusion, LLL consolidation. Films reviewed, no loculations
Underwent left-sided thoracentesis on 12/15 showing exudative fusion effusion with 2994 WBC and low glucose at 46, elevated LD at 2035 � given that fluid was serosanguineous this is not an empyema but is still concerning for a complicated
parapneumonic effusion. Recommend to continue antibiotics with Unasyn/Augmentin + Doxy and plan for at least 14 days; can consider ID consult if additional antibiotic duration recommendations are needed
Left pleural fluid hematocrit is low (2.6) and not consistent with hemothorax
CTA Chest done on 12/15 --> shows residual BARBARA loculated effusion with bilateral pleural effusions + RML/RLL acute PE --> diurese as tolerated and continue systemic AC
TTE with mild pHTN with PASP of 31mmHg assuming a RAP of 3mmHg with normal RV size/Fx; preserved LEF at 55-60% and no regional WMA; trace MR; stage I diastolic dysfunction
Follow up blood cx - NGTD
Obtain sputum cx; check legionella and Strep PNA urine antigens
Follow up pleural fluid Cx - NGTD
Continue empiric Abx amp/sulb and po doxyc, started on adm 12-13, unasyn changed to augmentin on 12/16
Speech evaluation appreciated: OP dysphagia, VSS performed on 12/16 --> pt recommended for pureed diet with thin liquids; continue asp precs
Pulmonary service will continue to follow along
Total time spent today was 35 minutes for this encounter. Time includes reviewing laboratory test/imaging results, reviewing pertinent medical records, obtaining and reviewing medical history, performing an appropriate exam, ordering medications,
tests and procedures. Time also includes documentation of this encounter, coordinating patient care and communicating with other healthcare professionals. Total time does not include separately billed tests performed on this date of service.
Data:
CTA Chest 12-16-2023:
Pulmonary embolism in the right main pulmonary artery extending into the right lower lobe pulmonary artery. Minimal filling defect in the right upper lobe pulmonary artery and left lower lobe pulmonary artery.
Bilateral pleural effusions. Right greater than left. Adjacent bibasilar atelectasis and/or consolidation.
Moderately large retrocardiac hiatal hernia.
LE Duplex 12-18-2023: No evidence of deep venous thrombosis bilaterally.
CXR 12-16-2023:
1. No pneumothorax post left thoracentesis. Small volume residual left pleural fluid with adjacent atelectasis.
2. Minimal right pleural effusion.
3. At least moderate hiatal hernia.
Subjective Data
-
Date of Service:
Date of Service: December 18, 2023
Chief Complaint: Pulmonary Follow Up
Subjective:
Patient seen and evaluated at bedside. Afebrile overnight. Remains on room air with SpO2 93% today. She has no complaints currently.
Review of Systems
General: Other (Unable to obtain given patient's clinical status/dementia/poor historian)
Objective Data
Data Reviewed
Vital Signs / I&O / Oxygen:
Vital Signs
Temp Pulse Resp BP Pulse Ox
97.6 F 70 18 131/68 93
12/18/23 07:00 12/18/23 08:08 12/18/23 07:00 12/18/23 08:08 12/18/23 07:00
Intake and Output
12/17/23 12/18/23 12/19/23
06:59 06:59 06:59
Intake Total 360 / 360 720 / 720
Balance 360 / 360 720 / 720
SaO2 93
Nasal Cannula flow liters per 3
minute
Physical Exam
General: Respiratory Distress (Negative) and Comfortable
HEENT: Normocephalic and Anicteric
Cardiovascular: S1-S2 and Peripheral Edema (Negative)
Respiratory: Wheeze (Negative), Crackles (bilaterally mainly at the bases), Rhonchi (Negative) and Non-Labored Respirations
GI: Soft, Non Distended and Non Tender
Neurology: Awake and Alert
Skin: Warm, Dry and Cyanosis (Negative)
Labs/Micro/Reports
Lab Data
12/18/23 06:59
12/18/23 06:59
Microbiology
12/16/23 09:26 Pleural Fluid Body Fluid Culture - Preliminary
No Growth After 48 Hours
12/16/23 09:26 Pleural Fluid Gram Stain - Preliminary
12/15/23 19:49 Blood/Venous Blood Culture - Preliminary
No Growth in 48 hours- Final report to follow
12/14/23 21:28 Nose MRSA Screen - Final
No Methicillin Resistant Staphylococcus aureus isolated.
[2023-12-18 12:21] LABS: Glucose - Point of Care 138 mg/dl (70-99)
--- NOTE | 2023-12-18 13:39 | PTOTSP ---
Speech Therapy
Tolerated regular solids with prompt and efficient oral processing and swallow response.
Recommend
1. Advance to regular solids and continue Thin Liquids
2. Set up with food tray
3. Upright with all intake.
4. Meds in applesauce - crush if needed.
Appetite remained poor with advanced solid trials, therefore, diet advancement alone may not improve intake.
5. ST will follow and determine tolerance before signing off.
[2023-12-18 15:00] VITALS: BP 128/88
[2023-12-18 16:38] LABS: Glucose - Point of Care 128 mg/dl (70-99)
--- NOTE | 2023-12-18 16:51 | W.PN.HOSP.TC ---
Today's Communication/Plan
-
Respiratory status improved while on room air.
Continue oral anticoagulation
Monitor for pleural fluid reaccumulation. May require right thoracentesis if symptomatic.
Steroid taper.
Discharge planning.
Assessment / Plan
Assessment / Plan
Ms. Emani Brink is a 78 yo woman with hx dementia, HLD, resident of [facility] presents to the ER with increased cough and wheezing over past 24 hours. She was seen in the ER on 12/08, diagnosed with a UTI and discharged on Cefdinir.
ER visit was for an unwitnessed fall where she was found near the bed. Work-up without fracture.
Impression:
Acute hypoxic respiratory insufficiency.
Acute pulmonary embolism
Suspected pneumonia. Left side
Aspiration risk.
Bilateral pleural effusions
-Status post left thoracentesis 12/23 1100 cc exudative.
Recent UTI with Klebsiella 12/09/2023
Conditions prior to admission:
Dementia moderate without behavioral disturbances
Hypothyroidism
Dyslipidemia
Depression
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
Plan:
Acute hypoxic respiratory failure
Noted with pulse ox and high 80s on room air
Exam with coarse rhonchi and wheezing on 12/18
Video swallow evaluation with no evidence of overt aspiration and recommended continue pur�ed diet and thin liquids. Monitor closely with aspiration precautions
Status post left thoracentesis 11/2010 100 cc exudative
Follow-up chest x-ray with relatively clear lung thompson.
Normal procalcitonin.
Given exudative pleural effusion, check CT scan of the chest including PE protocol given hypoxic
CT chest PE positive for pulmonary embolism in the right main pulmonary artery extending into the right lower lobe pulmonary artery. Minimal filling defect in the right upper lobe pulmonary artery and left lower lobe pulmonary artery.
Initiated anticoagulation with Lovenox on 12/15. Plan to transition to Eliquis on 12/16.
Check lower extremity Doppler.
Follow pleural fluid pathology.
Monitor for fluid reaccumulation.
Continue empiric antibiotics covering aspiration and community-acquired pathogens: Changing Unasyn to Augmentin on 12/16. Continue doxycycline.
Given significant wheezing on exam will add IV Decadron with basal bolus insulin. Continue taper
No clinical evidence of volume overload, attempt of gentle diuresis, although less likely mobilize pleural fluid.
Natruretic peptide within normal limits.
Echocardiogram with preserved biventricular function.
#Recent UTI grew Klebsiella 12/09/2023
#History of UTIs
-Has been on cefdinir 300 mg past 5 days 2 more days left( will stop as going on unasyn)
#Hx dementia-moderate
Oriented to first and last name, Robert her son but she is unsure of his relation, not place or year
-Fall precautions
-Continue memantine 5 mg daily
#Hypothyroidism
-Continue levothyroxine
#HLD
-Continue Crestor 20 mg daily,
#Depression
cont citalopram 20 mg daily
#Chronic ambulatory dysfunction uses walker at baseline
DVT proph
Subcu Lovenox
Anticipated Discharge: 24 - 48 hours
Subjective/Interval History
-
Date of Service: December 18, 2023
Objective Data
-
Labs:
Laboratory Results
12/18/23
06:59
WBC 11.9 H
Hgb 10.0 L
Hct 30.6 L
Plt Count 255
Sodium 137
Potassium 3.6
Chloride 102
Carbon Dioxide 27
BUN 27 H
Creatinine 0.8
Glucose 127 H
Calcium 9.6
Vital Signs:
Vital Signs
Temp Pulse Resp BP Pulse Ox
97.6 F 76 18 128/88 94
12/18/23 15:00 12/18/23 15:00 12/18/23 15:00 12/18/23 15:00 12/18/23 15:00
I&O
12/17/23 12/18/23 12/19/23
06:59 06:59 06:59
Intake Total 360 / 360 720 / 720
Balance 360 / 360 720 / 720
Physical Exam
-
General: Well Developed and No Apparent Distress
HEENT: Normocephalic, Atraumatic and Moist Mucous Membranes
Respiratory: Clear to Auscultation
Cardiac: Regular Rhythm and S1/S2; Negative Murmur, Rub or Gallop
GI: Soft, Nontender, Nondistended and Normal Bowel Sounds; Negative Organomegaly
Rectal: Deferred by Provider
Musculoskeletal: No Clubbing, No Cyanosis and No Edema
Skin: Negative Rash
Neuro: Awake, Alert, Oriented and Nonfocal/Grossly Intact
[2023-12-18] MEDS: DECADRON 2 MG IV (17:12)
[2023-12-18] MEDS: DUONEB 3 ML INH (19:57)
[2023-12-18 21:10] LABS: Glucose - Point of Care 151 mg/dl (70-99)
[2023-12-18] MEDS: VITAMIN D3 (cholecalciferol) 25 MCG PO (21:27)
[2023-12-18] MEDS: MELATONIN 5 MG PO (21:27)
[2023-12-18] MEDS: CELEXA 20 MG PO (21:27)
[2023-12-18] MEDS: CRESTOR 20 MG PO (21:27)
[2023-12-18 23:11] VITALS: BP 116/71
[2023-12-19 03:53] VITALS: BMI 32.6
[2023-12-19] MEDS: DUONEB 3 ML INH ×3 (04:39→20:22)
[2023-12-19] MEDS: DECADRON 2 MG IV (05:19)
[2023-12-19] MEDS: SYNTHROID 88 MCG PO (05:19)
[2023-12-19 06:00] VITALS: BMI 32.6
[2023-12-19 07:06] LABS: Blood Urea Nitrogen 29 mg/dl (7-17); Calcium 9.4 mg/dl (8.4-10.2); Carbon Dioxide 27 mmol/L (22-30); Chloride 100 mmol/L (98-107); Estimated Creatinine Clearance 61 ml/min; Glucose 136 mg/dl (70-99); Potassium 3.1 mmol/L (3.5-5.1); Sodium 135 mmol/L (135-145); eGFR > 60.00
[2023-12-19 07:44] VITALS: BP 92/49
[2023-12-19] MEDS: MUCINEX 600 MG PO ×2 (08:16→21:22)
[2023-12-19] MEDS: FEOSOL 325 MG PO (08:16)
[2023-12-19] MEDS: AUGMENTIN 875 MG/125 MG 1 TABLET PO ×2 (08:16→21:22)
[2023-12-19] MEDS: ELIQUIS 10 MG PO ×2 (08:16→21:22)
[2023-12-19] MEDS: PROTONIX 40 MG PO (08:16)
[2023-12-19] MEDS: LASIX 40 MG IV (08:18)
[2023-12-19] MEDS: NOVOLOG FLEXPEN-LOW RESISTANCE SC ×3 (08:18→16:27)
[2023-12-19 08:19] LABS: Glucose - Point of Care 128 mg/dl (70-99)
[2023-12-19 09:10] VITALS: BP 118/75; PULSE 92; O2SAT 96
[2023-12-19 09:32] VITALS: BP 118/75; O2SAT 96
[2023-12-19] MEDS: VIBRAMYCIN 100 MG PO ×2 (09:37→21:22)
[2023-12-19 11:58] LABS: Glucose - Point of Care 136 mg/dl (70-99)
--- NOTE | 2023-12-19 14:02 | W.PN.PUL3 ---
Today's Communication / Plan
-
Continue ABx
Continue AC --> assure NOAC is affordable
Wean down O2 to keep sats >90-94%
Continue DuoNebs BID
Diurese --> started IV lasix on 12/16 as she has rales on exam and has large pleural effusions on CTA chest from 12/16/2023 - last day today
Steroids started yesterday due to wheezing per hospitalist - this has now been stopped
Incentive spirometer encouraged
PT/OT recommended
Patient doing well, on room air breathing comfortably. No additional recommendations from our service at this time. Pulmonary service will now sign off. I will arrange for outpatient follow-up with us in the office. Please reconsult if there are
any additional questions/concerns, or if patient's respiratory status deteriorates.
Assessment
-
Assessment:
Mrs Emani Brink is a 78/W adm 12-13 with 4-5 d h/o mild nonproductive cough, episodic wheezing and orthopnea. Seen in the ER on 12/08 for an unwitnessed fall, had negative CT head/neck, negative pelvic and rib x-rays, reported some dysuria and d/c
on cefdinir 300 mg twice daily x 7 days. PMH positive for moderate dementia-moderate, former smoker (quit 1974), UTIs, hypothyroidism, depression, chronic ambulatory dysfunction (uses walker). At ER, CXR with L sided effusion
Impression:
L sided complicated parapneumonic effusion with L-sided infiltrate s/p thoracentesis on 12/15 with 1.1L of exudative fluid
Recent fall: CXR 12-08 with small L pleural effusion (negative CXR Aug 2023), and retrocardiac opacity seen on prior CXR from 09/09/2023 (?aspiration)
CAP with parapneumonic effusion
Submassive PE involving RUL/RLL/LLL without RV strain
Bilateral pleural effusions
Acute bronchitis with reported bronchospasm
Note past h/o remote smoking
OP dysphagia, potential asp pneumonia/bronchitis
Recent use of cefdinir for presumed UTI since 12-08
Conditions [facility] TECHNICAL ARCHITECT:
Dementia-moderate
HLD
UTIs
Hypothyroidism
Depression
Precancerous skin lesion with removal (nose)
Chronic ambulatory dysfunction uses walker at baseline
Hip replacement
Hysterectomy
Appendectomy
Lasik eye surgery
Remote h/o smoking (quit 1974)
Obesity
Plan:
O2 protocol to keep POx>=90-94%
Not on home O2
Asp precs
IS, acapella
DNs prn
Guaifenesin
Patient was apparently wheezing yesterday and the hospitalist added systemic steroids with Decadron � patient was on Decadron 2 mg IV q12hr - this has now been stopped (no wheezing today or yesterday during my evaluation)
L sided effusion (increasing size)/infiltrate
Recent fall: CXR 12-08 with small L pleural effusion (no effusion seen on prior CXR Aug 2023, but there was a retrocardiac opacity seen at that time concerning for pneumonia)
Acute bronchitis with reported bronchospasm
Recent use of cefdinir for presumed UTI since 12-08
L chest US 12-14: moderate L pleural effusion, LLL consolidation. Films reviewed, no loculations
Underwent left-sided thoracentesis on 12/15 showing exudative fusion effusion with 2994 WBC and low glucose at 46, elevated LD at 2035 � given that fluid was serosanguineous this is not an empyema but is still concerning for a complicated
parapneumonic effusion. Recommend to continue antibiotics with Unasyn/Augmentin + Doxy and plan for at least 14 days; can consider ID consult if additional antibiotic duration recommendations are needed
Left pleural fluid hematocrit is low (2.6) and not consistent with hemothorax
CTA Chest done on 12/15 --> shows residual BARBARA loculated effusion with bilateral pleural effusions + RML/RLL acute PE --> diurese as tolerated and continue systemic AC
TTE with mild pHTN with PASP of 31mmHg assuming a RAP of 3mmHg with normal RV size/Fx; preserved LEF at 55-60% and no regional WMA; trace MR; stage I diastolic dysfunction
Follow up blood cx - NGTD
Obtain sputum cx; check legionella and Strep PNA urine antigens
Follow up pleural fluid Cx - NGTD
Continue empiric Abx amp/sulb and po doxyc, started on adm 12-13, unasyn changed to augmentin on 12/16
Speech evaluation appreciated: OP dysphagia, VSS performed on 12/16 --> pt recommended for pureed diet with thin liquids; continue asp precs
Patient doing well, on room air breathing comfortably. No additional recommendations from our service at this time. Pulmonary service will now sign off. I will arrange for outpatient follow-up with us in the office. Thank you for allowing us to
be involved in the care of this patient. Please reconsult if there are any additional questions/concerns, or if patient's respiratory status deteriorates.
Total time spent today was 35 minutes for this encounter. Time includes reviewing laboratory test/imaging results, reviewing pertinent medical records, obtaining and reviewing medical history, performing an appropriate exam, ordering medications,
tests and procedures. Time also includes documentation of this encounter, coordinating patient care and communicating with other healthcare professionals. Total time does not include separately billed tests performed on this date of service.
Data:
CTA Chest 12-16-2023:
Pulmonary embolism in the right main pulmonary artery extending into the right lower lobe pulmonary artery. Minimal filling defect in the right upper lobe pulmonary artery and left lower lobe pulmonary artery.
Bilateral pleural effusions. Right greater than left. Adjacent bibasilar atelectasis and/or consolidation.
Moderately large retrocardiac hiatal hernia.
LE Duplex 12-18-2023: No evidence of deep venous thrombosis bilaterally.
CXR 12-16-2023:
1. No pneumothorax post left thoracentesis. Small volume residual left pleural fluid with adjacent atelectasis.
2. Minimal right pleural effusion.
3. At least moderate hiatal hernia.
Subjective Data
-
Date of Service:
Date of Service: December 19, 2023
Chief Complaint: Pulmonary Follow Up
Subjective:
Seen today at bedside. On room air breathing comfortably. No acute vents overnight.
Review of Systems
General: Other (Unable to obtain as patient is poor historian)
Objective Data
Data Reviewed
Vital Signs / I&O / Oxygen:
Vital Signs
Temp Pulse Resp BP Pulse Ox
98.5 F 73 18 122/76 93
12/19/23 15:15 12/19/23 20:23 12/19/23 20:23 12/19/23 15:15 12/19/23 20:23
Intake and Output
12/18/23 12/19/23 12/20/23
06:59 06:59 06:59
Intake Total 720 / 720 360 / 360 720 / 720
Balance 720 / 720 360 / 360 720 / 720
SaO2 93
Nasal Cannula flow liters per 3
minute
Physical Exam
General: Respiratory Distress (Negative) and Comfortable
HEENT: Normocephalic and Anicteric
Cardiovascular: S1-S2 and Peripheral Edema (Negative)
Respiratory: Wheeze (Negative), Crackles (bilaterally mainly at the bases), Rhonchi (Negative) and Non-Labored Respirations
GI: Soft, Non Distended and Non Tender
Neurology: Awake and Alert
Skin: Warm, Dry and Cyanosis (Negative)
Labs/Micro/Reports
Lab Data
12/18/23 06:59
12/19/23 06:18
Microbiology
12/15/23 19:49 Blood/Venous Blood Culture - Preliminary
No Growth in 4 days- Final report to follow
12/16/23 09:26 Pleural Fluid Body Fluid Culture - Final
No Growth After 72 Hours
12/16/23 09:26 Pleural Fluid Gram Stain - Final
[2023-12-19 15:15] VITALS: BP 122/76
[2023-12-19] MEDS: KCL ELIXIR 40 MEQ PO (15:25)
--- NOTE | 2023-12-19 15:57 | CM ---
Reviewed chart, received notification from attending that patient is medically cleared for discharge. RN advised that patient's son called and wanted a return call. Called patient's son and daughter in law back. They answered and stated that their
preference would be to send patient to [facility]. Updated them about bed availability. Provided alternate options, and they selected [facility] if patient is unable to go to [facility]. They also stated that they may want to bring patient
home as she has almost 18/02 care.
Placed a call to Gretta at [facility] and left a message requesting availability.
Will await return call.
Plan: Case management will continue to follow and assist with discharge planning. Home vrs SNF. Will need auth.
[2023-12-19 16:24] LABS: Glucose - Point of Care 129 mg/dl (70-99)
--- NOTE | 2023-12-19 18:14 | W.PN.HOSP.TC ---
Today's Communication/Plan
-
Completed course of corticosteroids
Continue antibiotics
Continue anticoagulation
Physical therapy
Placement to [facility] facility
Medically optimized for discharge.
Assessment / Plan
Assessment / Plan
Ms. Emani Brink is a 78 yo woman with hx dementia, HLD, resident of [facility] presents to the ER with increased cough and wheezing over past 24 hours. She was seen in the ER on 12/08, diagnosed with a UTI and discharged on Cefdinir.
ER visit was for an unwitnessed fall where she was found near the bed. Work-up without fracture.
Impression:
Acute hypoxic respiratory insufficiency.
Acute pulmonary embolism
Suspected pneumonia. Left side
Aspiration risk.
Bilateral pleural effusions
-Status post left thoracentesis 12/23 1100 cc exudative.
Recent UTI with Klebsiella 12/09/2023
Conditions prior to admission:
Dementia moderate without behavioral disturbances
Hypothyroidism
Dyslipidemia
Depression
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
Plan:
Acute hypoxic respiratory failure
Noted with pulse ox and high 80s on room air
Exam with coarse rhonchi and wheezing on 12/18
Video swallow evaluation with no evidence of overt aspiration and recommended continue pur�ed diet and thin liquids. Monitor closely with aspiration precautions
Status post left thoracentesis 11/2010 100 cc exudative
Follow-up chest x-ray with relatively clear lung thompson.
Normal procalcitonin.
Given exudative pleural effusion, check CT scan of the chest including PE protocol given hypoxic
CT chest PE positive for pulmonary embolism in the right main pulmonary artery extending into the right lower lobe pulmonary artery. Minimal filling defect in the right upper lobe pulmonary artery and left lower lobe pulmonary artery.
Initiated anticoagulation with Lovenox on 12/15. Plan to transition to Eliquis on 12/16.
Check lower extremity Doppler.
Follow pleural fluid pathology.
Monitor for fluid reaccumulation.
Continue empiric antibiotics covering aspiration and community-acquired pathogens: Changing Unasyn to Augmentin on 12/16. Continue doxycycline.
Given significant wheezing on exam will add IV Decadron with basal bolus insulin. Continue taper
No clinical evidence of volume overload, attempt of gentle diuresis, although less likely mobilize pleural fluid.
Natruretic peptide within normal limits.
Echocardiogram with preserved biventricular function.
#Recent UTI grew Klebsiella 12/09/2023
#History of UTIs
-Has been on cefdinir 300 mg past 5 days 2 more days left( will stop as going on unasyn)
#Hx dementia-moderate
Oriented to first and last name, Robert her son but she is unsure of his relation, not place or year
-Fall precautions
-Continue memantine 5 mg daily
#Hypothyroidism
-Continue levothyroxine
#HLD
-Continue Crestor 20 mg daily,
#Depression
cont citalopram 20 mg daily
#Chronic ambulatory dysfunction uses walker at baseline
DVT proph
Subcu Lovenox
Anticipated Discharge: Within 24 hours
Subjective/Interval History
-
Date of Service: December 19, 2023
Objective Data
-
Labs:
Laboratory Results
12/19/23
06:18
Sodium 135
Potassium 3.1 L
Chloride 100
Carbon Dioxide 27
BUN 29 H
Creatinine 0.8
Glucose 136 H
Calcium 9.4
Vital Signs:
Vital Signs
Temp Pulse Resp BP Pulse Ox
98.5 F 62 20 122/76 94
12/19/23 15:15 12/19/23 15:15 12/19/23 15:15 12/19/23 15:15 12/19/23 15:15
I&O
12/18/23 12/19/23 12/20/23
06:59 06:59 06:59
Intake Total 720 / 720 360 / 360 720 / 720
Balance 720 / 720 360 / 360 720 / 720
Physical Exam
-
General: Well Developed and No Apparent Distress
HEENT: Normocephalic, Atraumatic and Moist Mucous Membranes
Respiratory: Clear to Auscultation
Cardiac: Regular Rhythm and S1/S2; Negative Murmur, Rub or Gallop
GI: Soft, Nontender, Nondistended and Normal Bowel Sounds; Negative Organomegaly
Rectal: Deferred by Provider
Musculoskeletal: No Clubbing, No Cyanosis and No Edema
Skin: Negative Rash
Neuro: Nonfocal/Grossly Intact
[2023-12-19] MEDS: CRESTOR 20 MG PO (21:22)
[2023-12-19] MEDS: CELEXA 20 MG PO (21:22)
[2023-12-19] MEDS: VITAMIN D3 (cholecalciferol) 25 MCG PO (21:22)
[2023-12-19] MEDS: MELATONIN 5 MG PO (21:22)
[2023-12-19 21:36] LABS: Glucose - Point of Care 143 mg/dl (70-99)
[2023-12-19 23:00] VITALS: BP 126/80
[2023-12-20] MEDS: SYNTHROID 88 MCG PO (05:45)
[2023-12-20 06:00] VITALS: BMI 33.0
[2023-12-20 06:41] LABS: % Basophils 0.1 % (0-2); % Immature Granulocytes 1.3 % (0-0.5); % Lymphocytes 8.1 % (20.5-51.1); % Monocytes 6.3 % (1.7-9.3); % Neutrophils 84.2 % (42.2-75.2); Absolute Immature Granulocytes 0.1 10^3/uL (0-0.05); Absolute Lymphocytes 0.9 10^3/uL (1.2-3.4); Absolute Monocytes 0.7 10^3/uL (0.1-0.6); Absolute Neutrophils 8.8 10^3/uL (1.4-6.5); Hematocrit 30.5 % (37.0-47.0); Mean Corp Hgb Conc. 32.8 g/dL (33.0-37.0); Mean Corpuscular Hgb 28.1 pg (27.0-31.0); Mean Corpuscular Volume 85.7 fL (81.0-99.0); Mean Platelet Volume 10.1 fL (7.4-10.4); Nucleated Red Blood Cells % 0 %; Platelet Count 303 10^3/uL (130-400); Red Blood Cell Count 3.56 10^6/uL (4.20-5.40); Red Cell Dist. Width 14.6 % (11.5-14.5); White Blood Cell Count 10.5 10^3/uL (4.8-10.8)
[2023-12-20] MEDS: DUONEB 3 ML INH ×2 (07:39→19:13)
[2023-12-20 07:43] LABS: Blood Urea Nitrogen 26 mg/dl (7-17); Calcium 9.4 mg/dl (8.4-10.2); Carbon Dioxide 28 mmol/L (22-30); Chloride 98 mmol/L (98-107); Estimated Creatinine Clearance 61 ml/min; Glucose 113 mg/dl (70-99); Potassium 3.7 mmol/L (3.5-5.1); Sodium 135 mmol/L (135-145); eGFR > 60.00
[2023-12-20 07:45] VITALS: BP 125/73
[2023-12-20 07:57] LABS: Glucose - Point of Care 122 mg/dl (70-99)
[2023-12-20] MEDS: NOVOLOG FLEXPEN-LOW RESISTANCE SC ×2 (08:19→12:32)
[2023-12-20] MEDS: ELIQUIS 10 MG PO ×2 (08:19→21:09)
[2023-12-20] MEDS: PROTONIX 40 MG PO (08:20)
[2023-12-20] MEDS: MUCINEX 600 MG PO ×2 (08:20→21:09)
[2023-12-20] MEDS: FEOSOL 325 MG PO (08:20)
[2023-12-20] MEDS: AUGMENTIN 875 MG/125 MG 1 TABLET PO ×2 (08:21→21:08)
[2023-12-20] MEDS: VIBRAMYCIN 100 MG PO ×2 (09:05→21:09)
--- NOTE | 2023-12-20 10:37 | CM ---
Received message from attending who stated that patient has been medically cleared to go to SNF today. Placed a call to patient's son, who stated that he would like for patient to go to [facility].
Placed a call to Anaya in admissions at [facility] who confirmed acceptance. #NPI for Dr. Torres, [id number]
Placed call to [facility] [phone] and spoke with a clearance representative named, Marleen, who stated that fax# for clinical is, .
Will fax all clinical information to initate authorization.
Plan: Case management will continue to follow and assist with discharge planning. Hopeful transfer to [facility] once authorization is received.
[2023-12-20 12:16] LABS: Glucose - Point of Care 120 mg/dl (70-99)
[2023-12-20 15:46] VITALS: BP 114/78
--- NOTE | 2023-12-20 16:27 | W.PN.HOSP.TC ---
Today's Communication/Plan
-
Antibiotics
Oral anticoagulation
Pending placement to rehab.
Assessment / Plan
Assessment / Plan
Ms. Emani Brink is a 78 yo woman with hx dementia, HLD, resident of [facility] presents to the ER with increased cough and wheezing over past 24 hours. She was seen in the ER on 12/08, diagnosed with a UTI and discharged on Cefdinir.
ER visit was for an unwitnessed fall where she was found near the bed. Work-up without fracture.
Impression:
Acute hypoxic respiratory insufficiency.
Acute pulmonary embolism
Suspected pneumonia. Left side
Aspiration risk.
Bilateral pleural effusions
-Status post left thoracentesis 12/23 1100 cc exudative.
Recent UTI with Klebsiella 12/09/2023
Conditions prior to admission:
Dementia moderate without behavioral disturbances
Hypothyroidism
Dyslipidemia
Depression
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
Plan:
Acute hypoxic respiratory failure
Noted with pulse ox and high 80s on room air
Exam with coarse rhonchi and wheezing on 12/18
Video swallow evaluation with no evidence of overt aspiration and recommended continue pur�ed diet and thin liquids. Monitor closely with aspiration precautions
Status post left thoracentesis 11/2010 100 cc exudative
Follow-up chest x-ray with relatively clear lung thompson.
Normal procalcitonin.
Given exudative pleural effusion, check CT scan of the chest including PE protocol given hypoxic
CT chest PE positive for pulmonary embolism in the right main pulmonary artery extending into the right lower lobe pulmonary artery. Minimal filling defect in the right upper lobe pulmonary artery and left lower lobe pulmonary artery.
Initiated anticoagulation with Lovenox on 12/15. Plan to transition to Eliquis on 12/16.
Lower extremity Doppler negative for DVT
Follow pleural fluid pathology, pending
Monitor for fluid reaccumulation.
Continue empiric antibiotics covering aspiration and community-acquired pathogens: Changing Unasyn to Augmentin on 12/16. Continue doxycycline. To complete total of 10-day course of therapy through 12/25
Given significant wheezing on exam will add IV Decadron with basal bolus insulin. Continue taper
No clinical evidence of volume overload, attempt of gentle diuresis, although less likely mobilize pleural fluid.
Natruretic peptide within normal limits.
Echocardiogram with preserved biventricular function.
#Recent UTI grew Klebsiella 12/09/2023
#History of UTIs
-Has been on cefdinir 300 mg past 5 days 2 more days left( will stop as going on unasyn)
#Hx dementia-moderate
Oriented to first and last name, Robert her son but she is unsure of his relation, not place or year
-Fall precautions
-Continue memantine 5 mg daily
#Hypothyroidism
-Continue levothyroxine
#HLD
-Continue Crestor 20 mg daily,
#Depression
cont citalopram 20 mg daily
#Chronic ambulatory dysfunction uses walker at baseline
DVT proph
Subcu Lovenox
Anticipated Discharge: Within 24 hours
Subjective/Interval History
-
Date of Service: December 20, 2023
Objective Data
-
Labs:
Laboratory Results
12/20/23
06:28
WBC 10.5
Hgb 10.0 L
Hct 30.5 L
Plt Count 303
Sodium 135
Potassium 3.7
Chloride 98
Carbon Dioxide 28
BUN 26 H
Creatinine 0.8
Glucose 113 H
Calcium 9.4
Vital Signs:
Vital Signs
Temp Pulse Resp BP Pulse Ox
98.3 F 85 16 114/78 95
12/20/23 15:46 12/20/23 15:46 12/20/23 15:46 12/20/23 15:46 12/20/23 15:46
I&O
12/19/23 12/20/2324
06:59 06:59 06:59
Intake Total 360 / 360 1200 / 1200
Balance 360 / 360 1200 / 1200
Physical Exam
-
General: Well Developed and No Apparent Distress
HEENT: Normocephalic, Atraumatic and Moist Mucous Membranes
Respiratory: Clear to Auscultation
Cardiac: Regular Rhythm and S1/S2; Negative Murmur, Rub or Gallop
GI: Soft, Nontender, Nondistended and Normal Bowel Sounds; Negative Organomegaly
Rectal: Deferred by Provider
Musculoskeletal: No Clubbing, No Cyanosis and No Edema
Skin: Negative Rash
Neuro: Awake, Alert and Nonfocal/Grossly Intact
[2023-12-20 16:36] LABS: Glucose - Point of Care 166 mg/dl (70-99)
[2023-12-20] MEDS: NOVOLOG FLEXPEN-LOW RESISTANCE 1 UNITS SC (16:39)
[2023-12-20] MEDS: VITAMIN D3 (cholecalciferol) 25 MCG PO (21:09)
[2023-12-20] MEDS: CELEXA 20 MG PO (21:09)
[2023-12-20] MEDS: MELATONIN 5 MG PO (21:09)
[2023-12-20] MEDS: CRESTOR 20 MG PO (21:09)
[2023-12-20 21:19] LABS: Glucose - Point of Care 110 mg/dl (70-99)
[2023-12-20 22:59] VITALS: BP 115/80
[2023-12-21] MEDS: DUONEB 3 ML INH ×2 (05:54→18:07)
[2023-12-21] MEDS: SYNTHROID 88 MCG PO (06:22)
[2023-12-21] MEDS: MUCINEX 600 MG PO (07:23)
[2023-12-21] MEDS: AUGMENTIN 875 MG/125 MG 1 TABLET PO (07:23)
[2023-12-21] MEDS: PROTONIX 40 MG PO (07:23)
[2023-12-21] MEDS: FEOSOL 325 MG PO (07:23)
[2023-12-21] MEDS: ELIQUIS 10 MG PO (07:23)
[2023-12-21 07:25] VITALS: BP 112/78
--- NOTE | 2023-12-21 07:52 | W.PN.HOSP.TC ---
Today's Communication/Plan
-
Continue current management. Discharge planning in progress
Assessment / Plan
Assessment / Plan
Physical exam:
General: Well Developed, Well Nourished and No Apparent Distress
HEENT: Normocephalic, Atraumatic and Moist Mucous Membranes
Respiratory: Clear to Auscultation; Negative Wheezes, Rales or Rhonchi
Cardiac: Regular Rhythm and S1/S2
GI: Soft, Nontender and Nondistended
Musculoskeletal: No Clubbing, No Cyanosis and No Edema
Neuro: Awake, Alert and Disoriented
Psych: Calm
A/P:
Impression:
Acute hypoxic respiratory insufficiency.
Acute pulmonary embolism
Suspected pneumonia. Left side
Aspiration risk.
Bilateral pleural effusions
-Status post left thoracentesis 12/23 1100 cc exudative.
Recent UTI with Klebsiella 12/09/2023
Conditions prior to admission:
Dementia moderate without behavioral disturbances
Hypothyroidism
Dyslipidemia
Depression
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
Plan:
Acute hypoxic respiratory failure
Noted with pulse ox and high 80s on room air
Exam with coarse rhonchi and wheezing on 12/18
Video swallow evaluation with no evidence of overt aspiration and recommended continue pur�ed diet and thin liquids. Monitor closely with aspiration precautions
Status post left thoracentesis 11/2010 100 cc exudative
Follow-up chest x-ray with relatively clear lung thompson.
Normal procalcitonin.
Given exudative pleural effusion, check CT scan of the chest including PE protocol given hypoxic
CT chest PE positive for pulmonary embolism in the right main pulmonary artery extending into the right lower lobe pulmonary artery. Minimal filling defect in the right upper lobe pulmonary artery and left lower lobe pulmonary artery.
Initiated anticoagulation with Lovenox on 12/15. Plan to transition to Eliquis on 12/16.
Lower extremity Doppler negative for DVT
Follow pleural fluid pathology, pending
Monitor for fluid reaccumulation.
Continue empiric antibiotics covering aspiration and community-acquired pathogens: Changing Unasyn to Augmentin on 12/16. Continue doxycycline. To complete total of 10-day course of therapy through 12/25
Given significant wheezing on exam will add IV Decadron with basal bolus insulin. Continue taper
No clinical evidence of volume overload, attempt of gentle diuresis, although less likely mobilize pleural fluid.
Natruretic peptide within normal limits.
Echocardiogram with preserved biventricular function.
Today on 12/20:
She is on Augmentin and doxycycline. Will investigate down the line if needs both.
Pulse ox 93% on room air
Add Robitussin as needed
She had received IV antibiotics, IV steroids, IV Lasix prior to today.
Awaiting for placement
#Recent UTI grew Klebsiella 12/09/2023
#History of UTIs
-Has been on cefdinir 300 mg past 5 days 2 more days left( will stop as going on unasyn)
#Hx dementia-moderate
Oriented to first and last name, Robert her son but she is unsure of his relation, not place or year
-Fall precautions
-Continue memantine 5 mg daily
#Hypothyroidism
-Continue levothyroxine
#HLD
-Continue Crestor 20 mg daily,
#Depression
cont citalopram 20 mg daily
#Chronic ambulatory dysfunction uses walker at baseline
DVT proph
Subcu Lovenox
Anticipated Discharge: 24 - 48 hours
Subjective/Interval History
-
Date of Service: December 21, 2023
Patient having dry cough today. No new complaints. Afebrile
Objective Data
-
Vital Signs:
Vital Signs
Temp Pulse Resp BP Pulse Ox
98.1 F 83 16 112/78 93
12/21/23 07:25 12/21/23 07:25 12/21/23 07:25 12/21/23 07:25 12/21/23 07:25
I&O
12/20/23 12/21/23 12/22/23
06:59 06:59 06:59
Intake Total 1200 / 1200 660 / 660
Balance 1200 / 1200 660 / 660
[2023-12-21 08:06] LABS: Glucose - Point of Care 119 mg/dl (70-99)
[2023-12-21 08:12] LABS: % Basophils 0.3 % (0-2); % Eosinophils 0.5 % (0-6); % Immature Granulocytes 3.4 % (0-0.5); % Lymphocytes 9.2 % (20.5-51.1); % Neutrophils 80.6 % (42.2-75.2); Absolute Eosinophils 0.1 10^3/uL (0-0.7); Absolute Immature Granulocytes 0.4 10^3/uL (0-0.05); Absolute Lymphocytes 1.1 10^3/uL (1.2-3.4); Absolute Monocytes 0.7 10^3/uL (0.1-0.6); Absolute Neutrophils 9.3 10^3/uL (1.4-6.5); Hematocrit 31.6 % (37.0-47.0); Hemoglobin 10.5 g/dL (12.0-16.0); Mean Corp Hgb Conc. 33.2 g/dL (33.0-37.0); Mean Corpuscular Hgb 28.7 pg (27.0-31.0); Mean Corpuscular Volume 86.3 fL (81.0-99.0); Nucleated Red Blood Cells % 0 %; Platelet Count 371 10^3/uL (130-400); Red Blood Cell Count 3.66 10^6/uL (4.20-5.40); Red Cell Dist. Width 14.8 % (11.5-14.5); White Blood Cell Count 11.6 10^3/uL (4.8-10.8)
[2023-12-21] MEDS: NOVOLOG FLEXPEN-LOW RESISTANCE SC ×3 (08:28→16:38)
[2023-12-21 08:52] LABS: Blood Urea Nitrogen 19 mg/dl (7-17); Calcium 9.4 mg/dl (8.4-10.2); Carbon Dioxide 25 mmol/L (22-30); Chloride 100 mmol/L (98-107); Estimated Creatinine Clearance 81 ml/min; Glucose 123 mg/dl (70-99); Potassium 3.4 mmol/L (3.5-5.1); Sodium 134 mmol/L (135-145); eGFR > 60.00
[2023-12-21] MEDS: VIBRAMYCIN 100 MG PO (09:21)
--- NOTE | 2023-12-21 10:35 | RESPNOTE ---
attempt made to walk pt for home 02 assessment as order
pt with chronic ambulatory disfunction and hasn't walked in long time.
pt resting in bed with 02 sats of 93% on room air.
Nurse and MD made aware of assessment.
[2023-12-21] MEDS: ROBITUSSIN 200 MG PO (11:06)
[2023-12-21 11:54] LABS: Glucose - Point of Care 126 mg/dl (70-99)
[2023-12-21] MEDS: KCL 40 MEQ PO (12:17)
[2023-12-21 15:45] VITALS: BP 117/72
[2023-12-21 16:33] LABS: Glucose - Point of Care 125 mg/dl (70-99)
[2023-12-21 21:23] LABS: Glucose - Point of Care 128 mg/dl (70-99)
[2023-12-21] MEDS: MELATONIN PO ×2 (22:13→22:57)
[2023-12-21] MEDS: ELIQUIS PO ×2 (22:13→22:57)
[2023-12-21] MEDS: VIBRAMYCIN PO ×2 (22:13→22:57)
[2023-12-21] MEDS: CELEXA PO ×2 (22:13→22:57)
[2023-12-21] MEDS: VITAMIN D3 (cholecalciferol) PO ×2 (22:13→22:57)
[2023-12-21] MEDS: CRESTOR PO ×2 (22:13→22:57)
[2023-12-21] MEDS: AUGMENTIN 875 MG/125 MG PO ×2 (22:13→22:57)
--- NOTE | 2023-12-21 22:58 | PTCARENOTE ---
This RN attempted to administer pt's nighttime medications. Pt is refusing to take. Pt stated 'I just don't want to take any pills.' Education on importance of medications provided to pt.
[2023-12-21 23:50] VITALS: BP 137/78
[2023-12-22] MEDS: SYNTHROID PO (05:28)
[2023-12-22 06:13] LABS: % Basophils 0.2 % (0-2); % Eosinophils 1.1 % (0-6); % Immature Granulocytes 5.3 % (0-0.5); % Lymphocytes 10.1 % (20.5-51.1); % Monocytes 6.4 % (1.7-9.3); % Neutrophils 76.9 % (42.2-75.2); Absolute Eosinophils 0.2 10^3/uL (0-0.7); Absolute Immature Granulocytes 0.7 10^3/uL (0-0.05); Absolute Lymphocytes 1.4 10^3/uL (1.2-3.4); Absolute Monocytes 0.9 10^3/uL (0.1-0.6); Absolute Neutrophils 10.3 10^3/uL (1.4-6.5); Hematocrit 31.5 % (37.0-47.0); Hemoglobin 10.6 g/dL (12.0-16.0); Mean Corp Hgb Conc. 33.7 g/dL (33.0-37.0); Mean Corpuscular Hgb 28.3 pg (27.0-31.0); Mean Platelet Volume 10.1 fL (7.4-10.4); Nucleated Red Blood Cells % 0 %; Platelet Count 466 10^3/uL (130-400); Red Blood Cell Count 3.75 10^6/uL (4.20-5.40); Red Cell Dist. Width 14.9 % (11.5-14.5); White Blood Cell Count 13.4 10^3/uL (4.8-10.8)
[2023-12-22 06:29] LABS: Blood Urea Nitrogen 16 mg/dl (7-17); Calcium 9.4 mg/dl (8.4-10.2); Carbon Dioxide 27 mmol/L (22-30); Chloride 100 mmol/L (98-107); Estimated Creatinine Clearance 70 ml/min; Glucose 117 mg/dl (70-99); Magnesium 2.1 mg/dl (1.6-2.3); Potassium 3.8 mmol/L (3.5-5.1); Sodium 134 mmol/L (135-145); eGFR > 60.00
[2023-12-22] MEDS: DUONEB 3 ML INH ×2 (06:33→18:07)
[2023-12-22 07:30] VITALS: BP 129/74
[2023-12-22 08:00] LABS: Glucose - Point of Care 133 mg/dl (70-99)
[2023-12-22] MEDS: NOVOLOG FLEXPEN-LOW RESISTANCE SC ×3 (08:03→16:51)
[2023-12-22] MEDS: PROTONIX 40 MG PO (08:04)
[2023-12-22] MEDS: ELIQUIS 10 MG PO ×2 (08:04→20:50)
[2023-12-22] MEDS: FEOSOL 325 MG PO (08:04)
[2023-12-22] MEDS: AUGMENTIN 875 MG/125 MG 1 TABLET PO ×2 (08:04→20:50)
--- NOTE | 2023-12-22 08:54 | W.PN.HOSP.TC ---
Today's Communication/Plan
-
Continue current management. Discharge planning in progress.
Assessment / Plan
Assessment / Plan
Physical exam:
General: Well Developed, Well Nourished and No Apparent Distress
HEENT: Normocephalic, Atraumatic and Moist Mucous Membranes
Respiratory: Clear to Auscultation; Negative Wheezes, Rales or Rhonchi
Cardiac: Regular Rhythm and S1/S2
GI: Soft, Nontender and Nondistended
Musculoskeletal: No Clubbing, No Cyanosis and No Edema
Neuro: Awake, Alert and Disoriented
Psych: Calm
A/P:
Impression:
Acute hypoxic respiratory insufficiency.
Acute pulmonary embolism
Suspected pneumonia. Left side
Aspiration risk.
Bilateral pleural effusions
-Status post left thoracentesis 12/23 1100 cc exudative.
Recent UTI with Klebsiella 12/09/2023
Conditions prior to admission:
Dementia moderate without behavioral disturbances
Hypothyroidism
Dyslipidemia
Depression
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
Plan:
Acute hypoxic respiratory failure
Noted with pulse ox and high 80s on room air
Exam with coarse rhonchi and wheezing on 12/18
Video swallow evaluation with no evidence of overt aspiration and recommended continue pur�ed diet and thin liquids. Monitor closely with aspiration precautions
Status post left thoracentesis 11/2010 100 cc exudative
Follow-up chest x-ray with relatively clear lung thompson.
Normal procalcitonin.
Given exudative pleural effusion, check CT scan of the chest including PE protocol given hypoxic
CT chest PE positive for pulmonary embolism in the right main pulmonary artery extending into the right lower lobe pulmonary artery. Minimal filling defect in the right upper lobe pulmonary artery and left lower lobe pulmonary artery.
Initiated anticoagulation with Lovenox on 12/15. Plan to transition to Eliquis on 12/16.
Lower extremity Doppler negative for DVT
Follow pleural fluid pathology, pending
Monitor for fluid reaccumulation.
Continue empiric antibiotics covering aspiration and community-acquired pathogens: Changing Unasyn to Augmentin on 12/16. Continue doxycycline. To complete total of 10-day course of therapy through 12/25
Given significant wheezing on exam will add IV Decadron with basal bolus insulin. Continue taper
No clinical evidence of volume overload, attempt of gentle diuresis, although less likely mobilize pleural fluid.
Natruretic peptide within normal limits.
Echocardiogram with preserved biventricular function.
On 12/20:
She is on Augmentin and doxycycline. Will investigate down the line if needs both.
Pulse ox 93% on room air
Add Robitussin as needed
She had received IV antibiotics, IV steroids, IV Lasix prior to today.
Awaiting for placement
Today on 12/21:
Remained stable
Continue Augmentin. Stop doxycycline.
Stop Accu-Cheks. BS only minimal elevated today and throughout hospital stay. Hemoglobin A1c 5.7
Discussed with attending RN.
Waiting for placement.
#Recent UTI grew Klebsiella 12/09/2023
#History of UTIs
-Has been on cefdinir 300 mg past 5 days 2 more days left( will stop as going on unasyn)
#Hx dementia-moderate
Oriented to first and last name, Robert her son but she is unsure of his relation, not place or year
-Fall precautions
-Continue memantine 5 mg daily
#Hypothyroidism
-Continue levothyroxine
#HLD
-Continue Crestor 20 mg daily,
#Depression
cont citalopram 20 mg daily
#Chronic ambulatory dysfunction uses walker at baseline
DVT proph
Subcu Lovenox
Anticipated Discharge: Within 24 hours
Subjective/Interval History
-
Date of Service: December 22, 2023
No new complaints today. Less cough. Afebrile
Objective Data
-
Labs:
Laboratory Results
12/22/23
05:46
WBC 13.4 H
Hgb 10.6 L
Hct 31.5 L
Plt Count 466 H D
Sodium 134 L
Potassium 3.8
Chloride 100
Carbon Dioxide 27
BUN 16
Creatinine 0.7
Glucose 117 H
Calcium 9.4
Vital Signs:
Vital Signs
Temp Pulse Resp BP Pulse Ox
98.1 F 83 16 129/74 98
12/22/23 07:30 12/22/23 07:30 12/22/23 07:30 12/22/23 07:30 12/22/23 07:30
I&O
12/21/23 12/22/23 12/23/23
06:59 06:59 06:59
Intake Total 660 / 660 420 / 420
Balance 660 / 660 420 / 420
[2023-12-22 11:55] LABS: Glucose - Point of Care 141 mg/dl (70-99)
[2023-12-22 15:05] VITALS: BP 122/83
[2023-12-22] MEDS: CELEXA 20 MG PO (21:52)
[2023-12-22] MEDS: MELATONIN 5 MG PO (21:52)
[2023-12-22] MEDS: CRESTOR 20 MG PO (21:53)
[2023-12-22] MEDS: VITAMIN D3 (cholecalciferol) 25 MCG PO (21:53)
[2023-12-22 22:21] VITALS: BP 127/77
[2023-12-23] MEDS: SYNTHROID 88 MCG PO ×2 (05:05→09:40)
[2023-12-23] MEDS: ROBITUSSIN 100 MG PO (05:05)
[2023-12-23 07:00] VITALS: BP 116/72
[2023-12-23] MEDS: DUONEB INH (08:08)
--- NOTE | 2023-12-23 09:19 | W.PN.HOSP.TC ---
Today's Communication/Plan
-
Discharge planning
Assessment / Plan
Assessment / Plan
Gen-awake, alert, NAD, confused
HEENT-NC, AT, anicteric, clear oral mm
Neck-supple
CV-reg, no M, +S1/S2
Lungs-clear B/L
Abd-soft, NT, ND
Ext-no edema
Musculoskeletal-no cyanosis, clubbing
Skin-warm and dry
Neuro-grossly non-focal
Psych-calm, cooperative
Acute hypoxic respiratory insufficiency.
Acute pulmonary embolism
Suspected pneumonia. Left side
Aspiration risk.
Bilateral pleural effusions
-Status post left thoracentesis 12/23 1100 cc exudative.
Recent UTI with Klebsiella 12/09/2023
Conditions prior to admission:
Dementia moderate without behavioral disturbances
Hypothyroidism
Dyslipidemia
Depression
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
Plan:
Acute hypoxic respiratory failure
Noted with pulse ox and high 80s on room air
Exam with coarse rhonchi and wheezing on 12/18
Video swallow evaluation with no evidence of overt aspiration and recommended continue pur�ed diet and thin liquids. Monitor closely with aspiration precautions
Status post left thoracentesis 11/2010 100 cc exudative
Follow-up chest x-ray with relatively clear lung thompson.
Normal procalcitonin.
Given exudative pleural effusion, check CT scan of the chest including PE protocol given hypoxic
CT chest PE positive for pulmonary embolism in the right main pulmonary artery extending into the right lower lobe pulmonary artery. Minimal filling defect in the right upper lobe pulmonary artery and left lower lobe pulmonary artery.
Initiated anticoagulation with Lovenox on 12/15. Plan to transition to Eliquis on 12/16.
Lower extremity Doppler negative for DVT
Follow pleural fluid pathology, pending
Monitor for fluid reaccumulation.
Continue empiric antibiotics covering aspiration and community-acquired pathogens: Changing Unasyn to Augmentin on 12/16. Continue doxycycline. To complete total of 10-day course of therapy through 12/25
Given significant wheezing on exam will add IV Decadron with basal bolus insulin. Continue taper
No clinical evidence of volume overload, attempt of gentle diuresis, although less likely mobilize pleural fluid.
Natruretic peptide within normal limits.
Echocardiogram with preserved biventricular function.
On 12/20:
She is on Augmentin and doxycycline. Will investigate down the line if needs both.
Pulse ox 93% on room air
Add Robitussin as needed
She had received IV antibiotics, IV steroids, IV Lasix prior to today.
Awaiting for placement
Today on 12/21:
Remained stable
Continue Augmentin. Stop doxycycline.
Stop Accu-Cheks. BS only minimal elevated today and throughout hospital stay. Hemoglobin A1c 5.7
Discussed with attending RN.
Waiting for placement.
12/22:
Remains medically stable for placement. No new events.
#Recent UTI grew Klebsiella 12/09/2023
#History of UTIs
-Has been on cefdinir 300 mg past 5 days 2 more days left( will stop as going on unasyn)
#Hx dementia-moderate
Oriented to first and last name, Robert her son but she is unsure of his relation, not place or year
-Fall precautions
-Continue memantine 5 mg daily
#Hypothyroidism
-Continue levothyroxine
#HLD
-Continue Crestor 20 mg daily,
#Depression
cont citalopram 20 mg daily
#Chronic ambulatory dysfunction uses walker at baseline
DVT proph
Subcu Lovenox
Dispo -awaiting placement in SNF.
Anticipated Discharge: Within 24 hours
Subjective/Interval History
-
Date of Service: December 23, 2023
Patient seen and examined. No complaints.
Objective Data
-
Vital Signs:
Vital Signs
Temp Pulse Resp BP Pulse Ox
97.6 F 73 18 116/72 94
12/23/23 07:00 12/23/23 07:00 12/23/23 07:00 12/23/23 07:00 12/23/23 07:00
I&O
12/22/23 12/23/23 12/24/23
06:59 06:59 06:59
Intake Total 420 / 420 440 / 440
Balance 420 / 420 440 / 440
Review of Systems
-
Unable to obtain full review of systems at this time due to: Dementia
History Source: Patient
All other systems: Reviewed and negative
[2023-12-23] MEDS: NOVOLOG FLEXPEN-LOW RESISTANCE SC (09:39)
[2023-12-23] MEDS: FEOSOL 325 MG PO (09:40)
[2023-12-23] MEDS: AUGMENTIN 875 MG/125 MG 1 TABLET PO ×2 (09:40→20:19)
[2023-12-23] MEDS: ELIQUIS 10 MG PO ×2 (09:40→20:18)
[2023-12-23] MEDS: PROTONIX 40 MG PO (09:40)
[2023-12-23 14:47] VITALS: BP 119/67
[2023-12-23] MEDS: DUONEB 3 ML INH (19:20)
[2023-12-23] MEDS: VITAMIN D3 (cholecalciferol) 25 MCG PO (21:21)
[2023-12-23] MEDS: CELEXA 20 MG PO (21:21)
[2023-12-23] MEDS: CRESTOR 20 MG PO (21:21)
[2023-12-23] MEDS: MELATONIN 5 MG PO (21:21)
[2023-12-23 23:45] VITALS: BP 124/70
[2023-12-24] MEDS: SYNTHROID 88 MCG PO (05:36)
[2023-12-24 07:15] VITALS: BP 125/71
[2023-12-24] MEDS: DUONEB 3 ML INH ×2 (08:10→19:26)
[2023-12-24] MEDS: FEOSOL 325 MG PO (08:24)
[2023-12-24] MEDS: AUGMENTIN 875 MG/125 MG 1 TABLET PO ×2 (08:24→20:50)
[2023-12-24] MEDS: PROTONIX 40 MG PO (08:24)
[2023-12-24] MEDS: ELIQUIS 10 MG PO (08:24)
--- NOTE | 2023-12-24 12:14 | W.PN.HOSP.TC ---
Today's Communication/Plan
-
Discharge planning
Assessment / Plan
Assessment / Plan
Gen-awake, alert, NAD, confused
HEENT-NC, AT, anicteric, clear oral mm
Neck-supple
CV-reg, no M, +S1/S2
Lungs-clear B/L
Abd-soft, NT, ND
Ext-no edema
Musculoskeletal-no cyanosis, clubbing
Skin-warm and dry
Neuro-grossly non-focal
Psych-calm, cooperative
Acute hypoxic respiratory insufficiency -due to acute bilateral pulm emboli, pneumonia. Oxygenation improved, now on room air.
Acute bilateral pulmonary emboli -completed Eliquis load, continue at 5 mg twice daily. Lower extremity Doppler ultrasound negative for DVT.
Community-acquired pneumonia -admission chest x-ray with large left lower lobe infiltrate. Completing course of antibiotics, last day today.
Dysphagia -diet advanced to regular with thin liquids per speech therapy recommendation.
Recent UTI grew Klebsiella 12/09/2023
History of UTIs
Was on cefdinir prior to admission.
Hx dementia-moderate, likely Alzheimer's type
Oriented to first and last name, Robert her son but she is unsure of his relation, not place or year
-Fall precautions
-Continue memantine 5 mg daily
Hypothyroidism
-Continue levothyroxine
Hyperlipidemia
-Continue Crestor 20 mg daily,
Depression
cont citalopram 20 mg daily
Chronic ambulatory dysfunction - uses walker at baseline
Dispo -awaiting placement in SNF. Medically stable for discharge. Case management aware.
Anticipated Discharge: Within 24 hours
Subjective/Interval History
-
Date of Service: December 24, 2023
Patient seen and examined. No complaints.
Objective Data
-
Vital Signs:
Vital Signs
Temp Pulse Resp BP Pulse Ox
98.0 F 78 14 125/71 93
12/24/23 07:15 12/24/23 08:12 12/24/23 08:12 12/24/23 07:15 12/24/23 08:12
I&O
12/23/23 12/24/23 12/25/23
06:59 06:59 06:59
Intake Total 440 / 440 300 / 300
Balance 440 / 440 300 / 300
Review of Systems
-
Unable to obtain full review of systems at this time due to: Dementia
History Source: Patient
All other systems: Reviewed and negative
[2023-12-24 12:40] VITALS: BP 122/78; PULSE 90; O2SAT 93
[2023-12-24 13:11] VITALS: BP 122/78; PULSE 90; O2SAT 93
--- NOTE | 2023-12-24 14:53 | CM ---
Addendum entered by GAMA Tang 12/24/23 16:34:
Received return call from Elda in admissions at [facility] who stated that her facility is also out of network. Will call daughter.
Original Note:
Reviewed chart, spoke with attending who stated that patient is ready for discharge. Placed a call to Anaya in admissions at [facility] to update that auth has not yet been received and asked if bed was still available. Anaya stated that [facility] is actually not in network with patient's insurance however, [facility] and [facility] are. She provided NPI for [place], [phone] and Dr. Omalley [phone].
Placed a call to patient's daughter who stated that these facilities are too far and requested that [facility] is explored again. Placed a call to Gretta San in admissions at [facility] who stated that she will not have a bed this week for patient.
Returned call to patient's daughter, who expressed that she would like for patient to go to [facility]. Placed a call to Elda in admissions at [facility] and she stated that she will review chart and return call to about possible availability and
confirm that she definitely takes patient's insurance.
Plan: Case management will continue to follow and assist with discharge planning. Transfer to SNF upon obtaining auth for an in network facility. Will await return call from [facility].
[2023-12-24 15:30] VITALS: BP 124/79
[2023-12-24] MEDS: MELATONIN 5 MG PO (20:50)
[2023-12-24] MEDS: VITAMIN D3 (cholecalciferol) 25 MCG PO (20:50)
[2023-12-24] MEDS: CELEXA 20 MG PO (20:51)
[2023-12-24] MEDS: ROBITUSSIN 100 MG PO (20:51)
[2023-12-24] MEDS: ELIQUIS 5 MG PO (20:51)
[2023-12-24] MEDS: CRESTOR 20 MG PO (20:51)
[2023-12-24 23:00] VITALS: BP 115/74
[2023-12-24 23:11] LABS: Glucose - Point of Care 118 mg/dl (70-99)
[2023-12-25] MEDS: SYNTHROID 88 MCG PO (05:29)
[2023-12-25] MEDS: DUONEB 3 ML INH ×2 (06:05→19:11)
[2023-12-25 07:13] LABS: Glucose - Point of Care 119 mg/dl (70-99)
[2023-12-25 07:30] VITALS: BP 119/57
[2023-12-25] MEDS: FEOSOL 325 MG PO (07:44)
[2023-12-25] MEDS: PROTONIX 40 MG PO (07:44)
[2023-12-25] MEDS: ELIQUIS 5 MG PO ×2 (07:44→20:26)
--- NOTE | 2023-12-25 10:08 | CM ---
Addendum entered by GAMA Tang 12/25/23 16:03:
Dr. Olmos stated that there is insufficient amount of documentation to support her need for skilled, therefore he does not feel the appeal is warranted.
Placed a call to patient's daughter to update. Had to leave a voice mail message. Advised of contact information and hours.
Addendum entered by GAMA Tang 12/25/23 13:08:
Received message from Gretta in admissions at [facility] who stated that she may have a bed for patient tomorrow and will return call to .
Received a call from [facility] and spoke with a outside medical sales representative named, Monet who stated that Peer to Peer review is needed, option 5. Expires December [address] Olmos to determine if he can do a peer to peer.
Original Note:
Spoke with Chele in admissions at [facility] who stated that her facility does not accept [facility]. Will update patient's daughter.
Plan: Case management will continue to follow and assist with discharge planning. Patient's daughter considering taking patient home with 24 hr care.
--- NOTE | 2023-12-25 10:21 | W.PN.HOSP.TC ---
Today's Communication/Plan
-
Discharge planning
Assessment / Plan
Assessment / Plan
Gen-awake, alert, NAD, confused
HEENT-NC, AT, anicteric, clear oral mm
Neck-supple
CV-reg, no M, +S1/S2
Lungs-clear B/L
Abd-soft, NT, ND
Ext-no edema
Musculoskeletal-no cyanosis, clubbing
Skin-warm and dry
Neuro-grossly non-focal
Psych-calm, cooperative
Acute hypoxic respiratory insufficiency -due to acute bilateral pulm emboli, pneumonia. Oxygenation improved, now on room air.
Acute bilateral pulmonary emboli -completed Eliquis load, continue at 5 mg twice daily. Lower extremity Doppler ultrasound negative for DVT.
Community-acquired pneumonia -admission chest x-ray with large left lower lobe infiltrate. Completing course of antibiotics, last day today.
Moderate left pleural effusion -1.1 L of dark serosanguineous pleural fluid removed on December 15. Fluid analysis consistent with exudate. Differential diagnosis includes infection versus malignancy. Repeat chest x-ray December 15 shows significant
improvement in the left pleural effusion. I spoke with pathologist, concern for malignant cells noted on cytology. Unclear history of malignancy. I left a voicemail for family to call me back.
Dysphagia -diet advanced to regular with thin liquids per speech therapy recommendation.
Recent UTI grew Klebsiella 12/09/2023
History of UTIs
Was on cefdinir prior to admission.
Hx dementia-moderate, likely Alzheimer's type
Oriented to first and last name, Robert her son but she is unsure of his relation, not place or year
-Fall precautions
-Continue memantine 5 mg daily
Hypothyroidism
-Continue levothyroxine
Hyperlipidemia
-Continue Crestor 20 mg daily,
Depression
cont citalopram 20 mg daily
Chronic ambulatory dysfunction - uses walker at baseline
Dispo -awaiting placement in SNF. Medically stable for discharge. Case management aware.
Anticipated Discharge: Within 24 hours
Subjective/Interval History
-
Date of Service: December 25, 2023
Patient seen and examined. No complaints.
Objective Data
-
Vital Signs:
Vital Signs
Temp Pulse Resp BP Pulse Ox
98.2 F 78 14 119/57 94
12/25/23 07:30 12/25/23 07:30 12/25/23 07:30 12/25/23 07:30 12/25/23 07:30
I&O
12/24/23 12/25/23 12/26/23
06:59 06:59 06:59
Intake Total 300 / 300 540 / 540
Balance 300 / 300 540 / 540
Review of Systems
-
History Source: Patient
All other systems: Reviewed and negative
[2023-12-25 11:37] LABS: Glucose - Point of Care 116 mg/dl (70-99)
[2023-12-25 11:43] VITALS: BMI 33.0
[2023-12-25 15:00] VITALS: BP 117/78
[2023-12-25 17:04] LABS: Glucose - Point of Care 119 mg/dl (70-99)
[2023-12-25 21:27] LABS: Glucose - Point of Care 125 mg/dl (70-99)
[2023-12-25] MEDS: CELEXA 20 MG PO (21:53)
[2023-12-25] MEDS: CRESTOR 20 MG PO (21:53)
[2023-12-25] MEDS: VITAMIN D3 (cholecalciferol) 25 MCG PO (21:53)
[2023-12-25] MEDS: MELATONIN 5 MG PO (21:53)
[2023-12-25 23:20] VITALS: BP 131/82
[2023-12-26] MEDS: SYNTHROID 88 MCG PO (05:08)
[2023-12-26 07:00] VITALS: BP 115/83
[2023-12-26] MEDS: DUONEB 3 ML INH ×2 (07:24→19:21)
[2023-12-26 08:17] LABS: Glucose - Point of Care 109 mg/dl (70-99)
[2023-12-26] MEDS: PROTONIX 40 MG PO (10:10)
[2023-12-26] MEDS: ELIQUIS 5 MG PO ×2 (10:10→20:14)
[2023-12-26] MEDS: FEOSOL 325 MG PO (10:10)
--- NOTE | 2023-12-26 10:27 | CM ---
Addendum entered by GAMA Tang 12/28/23 09:18:
late entry note. Patient's son is Robert, . Patient's daughter in law expressed that this is a better number to reach them both, as, she is an attorney lawyer and in and out of court throughout the day.
Addendum entered by GAMA Tang 12/26/23 17:54:
Received notification from [facility] hospital unit coordinator that patient's daughter in law wanted to speak with CM. Spoke with patient's daughter who stated that she spoke with Gretta at [facility] who updated her as to the denial. Patient's daughter in law was upset.
Placed a call to [facility] and spoke with Gretta to update that patient's daughter in law needed some direction as to whether patient needs [facility] or other resources. Gretta stated that she will have the director of social work call her tomorrow as well as their
financial person to discuss levels of care and associated costs.
Assisted patient in calling the appeal line however the patient support representative was not helpful, therefore patient's daughter in law stated that [facility]
CM director updated as to the denial and that patient's daughter is attempting appeal.
Original Note:
Received a call from a patient support representative named, Jossy from [facility] who stated that patient has been officially denied for SNF. Patient has a right to appeal, , fax is [phone].
Placed another call to patient's daughter however again had to leave a voice mail message. Encouraged return call and left CM contact information to the dept.
Plan: Case management will continue to follow and assist with discharge planning. Patient denied for SNF therefore will need to present alternate options to family for post acute care.
--- NOTE | 2023-12-26 11:48 | W.PN.HOSP.TC ---
Today's Communication/Plan
-
Discharge planning
Assessment / Plan
Assessment / Plan
Gen-awake, alert, NAD, confused
HEENT-NC, AT, anicteric, clear oral mm
Neck-supple
CV-reg, no M, +S1/S2
Lungs-clear B/L
Abd-soft, NT, ND
Ext-no edema
Musculoskeletal-no cyanosis, clubbing
Skin-warm and dry
Neuro-grossly non-focal
Psych-calm, cooperative
Acute hypoxic respiratory insufficiency -due to acute bilateral pulm emboli, pneumonia. Oxygenation improved, now on room air.
Acute bilateral pulmonary emboli -completed Eliquis load, continue at 5 mg twice daily. Lower extremity Doppler ultrasound negative for DVT.
Community-acquired pneumonia -admission chest x-ray with large left lower lobe infiltrate. Completed course of antibiotics.
Moderate left pleural effusion -1.1 L of dark serosanguineous pleural fluid removed on December 15. Fluid analysis consistent with exudate. Differential diagnosis includes infection versus malignancy. Repeat chest x-ray December 15 shows significant
improvement in the left pleural effusion. I spoke with pathologist, concern for malignant cells noted on cytology, possibly gynecologic versus renal origin.
I spoke with family today, daughter and son-in-law, they are not aware of any known history of malignancy other than melanoma. Patient did have a hysterectomy in the past for unclear reasons.
I informed family that they can certainly pursue outpatient follow-up with oncology but treating her conservatively in light of her age and dementia is totally appropriate. Can consider hospice.
Dysphagia -diet advanced to regular with thin liquids per speech therapy recommendation.
Recent UTI grew Klebsiella 12/09/2023
History of UTIs
Was on cefdinir prior to admission.
Hx dementia-moderate, likely Alzheimer's type
Oriented to first and last name, Robert her son but she is unsure of his relation, not place or year
-Fall precautions
-Continue memantine 5 mg daily
Hypothyroidism
-Continue levothyroxine
Hyperlipidemia
-Continue Crestor 20 mg daily,
Depression
cont citalopram 20 mg daily
Chronic ambulatory dysfunction - uses walker at baseline
Dispo -awaiting placement in SNF. Medically stable for discharge. Case management aware. Updated family on the phone today.
Anticipated Discharge: Today
Subjective/Interval History
-
Date of Service: December 26, 2023
Patient seen and examined. No complaints.
Objective Data
-
Vital Signs:
Vital Signs
Temp Pulse Resp BP Pulse Ox
97.4 F 77 18 115/83 92
12/26/23 07:00 12/26/23 07:19 12/26/23 07:19 12/26/23 07:00 12/26/23 07:19
I&O
12/25/23 12/26/23 12/27/23
06:59 06:59 06:59
Intake Total 540 / 540 260 / 260
Balance 540 / 540 260 / 260
Review of Systems
-
Unable to obtain full review of systems at this time due to: Dementia
History Source: Patient
All other systems: Reviewed and negative
[2023-12-26 12:44] LABS: Glucose - Point of Care 104 mg/dl (70-99)
[2023-12-26 13:05] VITALS: BP 120/71; PULSE 75; O2SAT 94
[2023-12-26 13:58] VITALS: BP 120/71; PULSE 76; O2SAT 93
[2023-12-26 15:00] VITALS: BP 118/71
[2023-12-26 16:57] LABS: Glucose - Point of Care 139 mg/dl (70-99)
[2023-12-26 21:42] LABS: Glucose - Point of Care 127 mg/dl (70-99)
[2023-12-26] MEDS: VITAMIN D3 (cholecalciferol) 25 MCG PO (22:01)
[2023-12-26] MEDS: MELATONIN 5 MG PO (22:01)
[2023-12-26] MEDS: CRESTOR 20 MG PO (22:01)
[2023-12-26] MEDS: CELEXA 20 MG PO (22:01)
[2023-12-26 23:10] VITALS: BP 122/66
[2023-12-27] MEDS: SYNTHROID 88 MCG PO (05:49)
[2023-12-27 07:00] VITALS: BP 114/71
[2023-12-27] MEDS: DUONEB 3 ML INH ×2 (07:24→19:27)
[2023-12-27 08:16] LABS: Glucose - Point of Care 112 mg/dl (70-99)
[2023-12-27] MEDS: ELIQUIS 5 MG PO ×2 (09:33→20:03)
[2023-12-27] MEDS: PROTONIX 40 MG PO (09:34)
[2023-12-27] MEDS: FEOSOL 325 MG PO (09:34)
[2023-12-27 11:00] VITALS: BP 117/59
--- NOTE | 2023-12-27 11:12 | CM ---
Spoke with patient's daughter-in law, Rachael, twice this morning via phone. Provided a status update on Authorization Appeal
Rachael provided the following appeal ID this morning: [id number]
Contacted [facility] and was informed that there were 2 prior authorizations submitted between 11/26 and 12/27/2023
Called # and was provided the following Appeal ID: [id number]
Told to call # for Fax # to send clinicals for Appeal; Faxed updated clinicals for Appeal to #
--- NOTE | 2023-12-27 11:40 | CM ---
Addendum entered by Cadence Randall 12/27/23 14:01:
Per Gretta, no beds available at [facility]
Addendum entered by Cadence Randall 12/27/23 11:51:
Received confirmation that Fax was received via phone from [facility] @ #
Original Note:
[id number] called and provided appeal ID [id number]; she reported that she was told the medical records were not received
Called [facility] @ # ; and provided appeal ID [id number]
Instructed to call
Faxed clinicals to # as directed
--- NOTE | 2023-12-27 11:46 | W.PN.HOSP.TC ---
Today's Communication/Plan
-
Discharge planning
Assessment / Plan
Assessment / Plan
Gen-awake, alert, NAD, confused
HEENT-NC, AT, anicteric, clear oral mm
Neck-supple
CV-reg, no M, +S1/S2
Lungs-clear B/L
Abd-soft, NT, ND
Ext-no edema
Musculoskeletal-no cyanosis, clubbing
Skin-warm and dry
Neuro-grossly non-focal
Psych-calm, cooperative
Acute hypoxic respiratory insufficiency -due to acute bilateral pulm emboli, pneumonia. Oxygenation improved, now on room air.
Acute bilateral pulmonary emboli -completed Eliquis load, continue at 5 mg twice daily. Lower extremity Doppler ultrasound negative for DVT.
Community-acquired pneumonia -admission chest x-ray with large left lower lobe infiltrate. Completed course of antibiotics.
Moderate left pleural effusion -1.1 L of dark serosanguineous pleural fluid removed on December 15. Fluid analysis consistent with exudate. Differential diagnosis includes infection versus malignancy. Repeat chest x-ray December 15 shows significant
improvement in the left pleural effusion. I spoke with pathologist, concern for malignant cells noted on cytology, possibly gynecologic versus renal origin.
I spoke with family today, daughter and son-in-law, they are not aware of any known history of malignancy other than melanoma. Patient did have a hysterectomy in the past for unclear reasons.
I informed family that they can certainly pursue outpatient follow-up with oncology but treating her conservatively in light of her age and dementia is totally appropriate. Can consider hospice.
Dysphagia -diet advanced to regular with thin liquids per speech therapy recommendation.
Recent UTI grew Klebsiella 12/09/2023
History of UTIs
Was on cefdinir prior to admission.
Hx dementia-moderate, likely Alzheimer's type
Oriented to first and last name, Robert her son but she is unsure of his relation, not place or year
-Fall precautions
-Continue memantine 5 mg daily
Hypothyroidism
-Continue levothyroxine
Hyperlipidemia
-Continue Crestor 20 mg daily,
Depression
cont citalopram 20 mg daily
Chronic ambulatory dysfunction - uses walker at baseline
Dispo -awaiting placement in SNF. Medically stable for discharge. Case management aware.
Anticipated Discharge: Today
Subjective/Interval History
-
Date of Service: December 27, 2023
Patient seen and examined. No complaints.
Objective Data
-
Vital Signs:
Vital Signs
Temp Pulse Resp BP Pulse Ox
98.0 F 69 18 114/71 95
12/27/23 07:00 12/27/23 07:30 12/27/23 07:30 12/27/23 07:00 12/27/23 07:30
I&O
12/26/23 12/27/23 12/28/23
06:59 06:59 06:59
Intake Total 260 / 260 150 / 150
Balance 260 / 260 150 / 150
Review of Systems
-
Unable to obtain full review of systems at this time due to: Dementia
History Source: Patient
All other systems: Reviewed and negative
[2023-12-27 12:02] LABS: Glucose - Point of Care 125 mg/dl (70-99)
[2023-12-27] MEDS: NAMENDA 5 MG PO (13:31)
[2023-12-27 16:52] LABS: Glucose - Point of Care 113 mg/dl (70-99)
[2023-12-27 21:21] LABS: Glucose - Point of Care 121 mg/dl (70-99)
[2023-12-27] MEDS: CRESTOR 20 MG PO (21:58)
[2023-12-27] MEDS: VITAMIN D3 (cholecalciferol) 25 MCG PO (21:58)
[2023-12-27] MEDS: CELEXA 20 MG PO (21:58)
[2023-12-27] MEDS: MELATONIN 5 MG PO (21:58)
[2023-12-27 23:05] VITALS: BP 125/72
[2023-12-28] MEDS: SYNTHROID 88 MCG PO (05:56)
[2023-12-28 07:15] VITALS: BP 142/83
[2023-12-28 07:19] LABS: Glucose - Point of Care 123 mg/dl (70-99)
[2023-12-28] MEDS: DUONEB 3 ML INH (07:29)
[2023-12-28] MEDS: FEOSOL 325 MG PO (10:50)
[2023-12-28] MEDS: PROTONIX 40 MG PO (10:50)
[2023-12-28] MEDS: ELIQUIS 5 MG PO ×2 (10:50→20:10)
[2023-12-28] MEDS: NAMENDA 5 MG PO (10:53)
--- NOTE | 2023-12-28 11:59 | CM ---
Placed a call to patient's daughter in law, Rachael, who confirmed that CM yesterday advised her that everything was faxed over and she is just awaiting determination from appeal.
Plan: Case management will continue to follow and assist with discharge planning. Hopeful transfer to SNF if auth is obtained.
--- NOTE | 2023-12-28 12:25 | W.PN.HOSP.TC ---
Today's Communication/Plan
-
Discharge planning
Assessment / Plan
Assessment / Plan
Gen-awake, alert, NAD, confused
HEENT-NC, AT, anicteric, clear oral mm
Neck-supple
CV-reg, no M, +S1/S2
Lungs-clear B/L
Abd-soft, NT, ND
Ext-no edema
Musculoskeletal-no cyanosis, clubbing
Skin-warm and dry
Neuro-grossly non-focal
Psych-calm, cooperative
Acute hypoxic respiratory insufficiency -due to acute bilateral pulm emboli, pneumonia. Oxygenation improved, now on room air.
Acute bilateral pulmonary emboli -completed Eliquis load, continue at 5 mg twice daily. Lower extremity Doppler ultrasound negative for DVT.
Community-acquired pneumonia -admission chest x-ray with large left lower lobe infiltrate. Completed course of antibiotics.
Moderate left pleural effusion -1.1 L of dark serosanguineous pleural fluid removed on December 15. Fluid analysis consistent with exudate. Differential diagnosis includes infection versus malignancy. Repeat chest x-ray December 15 shows significant
improvement in the left pleural effusion. I spoke with pathologist, concern for malignant cells noted on cytology, possibly gynecologic versus renal origin.
I spoke with family today, daughter and son-in-law, they are not aware of any known history of malignancy other than melanoma. Patient did have a hysterectomy in the past for unclear reasons.
I informed family that they can certainly pursue outpatient follow-up with oncology but treating her conservatively in light of her age and dementia is totally appropriate. Can consider hospice.
Dysphagia -diet advanced to regular with thin liquids per speech therapy recommendation.
Recent UTI grew Klebsiella 12/09/2023
History of UTIs
Was on cefdinir prior to admission.
Hx dementia-moderate, likely Alzheimer's type
Oriented to first and last name, Robert her son but she is unsure of his relation, not place or year
-Fall precautions
-Continue memantine 5 mg daily
Hypothyroidism
-Continue levothyroxine
Hyperlipidemia
-Continue Crestor 20 mg daily,
Depression
cont citalopram 20 mg daily
Chronic ambulatory dysfunction - uses walker at baseline
Dispo -awaiting placement in SNF. Medically stable for discharge. Case management aware.
Anticipated Discharge: Within 24 hours
Subjective/Interval History
-
Date of Service: December 28, 2023
Patient seen and examined. No complaints.
Objective Data
-
Vital Signs:
Vital Signs
Temp Pulse Resp BP Pulse Ox
98.1 F 80 14 142/83 93
12/28/23 07:15 12/28/23 07:31 12/28/23 07:31 12/28/23 07:15 12/28/23 07:15
I&O
12/27/23 12/28/23 12/29/23
06:59 06:59 06:59
Intake Total 150 / 150 140 / 140
Balance 150 / 150 140 / 140
Review of Systems
-
History Source: Patient
All other systems: Reviewed and negative
[2023-12-28 15:10] VITALS: BP 132/80
--- NOTE | 2023-12-28 19:10 | PTCARENOTE ---
Patient with poor appetite during shift. Patient refused being fed by staff members several times stating ' Im not hungry'.
[2023-12-28] MEDS: VITAMIN D3 (cholecalciferol) 25 MCG PO (21:55)
[2023-12-28] MEDS: CELEXA 20 MG PO (21:55)
[2023-12-28] MEDS: MELATONIN 5 MG PO (21:55)
[2023-12-28] MEDS: CRESTOR 20 MG PO (21:55)
[2023-12-28 23:05] VITALS: BP 110/57
[2023-12-29] MEDS: SYNTHROID 88 MCG PO (05:29)
[2023-12-29] MEDS: TYLENOL 650 MG PO (05:29)
[2023-12-29 07:00] VITALS: BP 130/65
[2023-12-29] MEDS: PROTONIX 40 MG PO (09:15)
[2023-12-29] MEDS: ELIQUIS 5 MG PO ×2 (09:15→20:58)
[2023-12-29] MEDS: NAMENDA 5 MG PO (09:15)
[2023-12-29] MEDS: FEOSOL 325 MG PO (09:15)
--- NOTE | 2023-12-29 09:50 | W.PN.HOSP.TC ---
Today's Communication/Plan
-
Colchicine
Prednisone
Assessment / Plan
Assessment / Plan
Gen-awake, alert, NAD, confused
HEENT-NC, AT, anicteric, clear oral mm
Neck-supple
CV-reg, no M, +S1/S2
Lungs-clear B/L
Abd-soft, NT, ND
Ext-no edema
Musculoskeletal-no cyanosis, clubbing, tender and warm right wrist with limited range of motion
Skin-warm and dry
Neuro-grossly non-focal
Psych-calm, cooperative
Acute right wrist arthritis -suspect pseudogout flare. Start course of colchicine, prednisone. Doubt septic arthritis.
Acute hypoxic respiratory insufficiency -due to acute bilateral pulm emboli, pneumonia. Oxygenation improved, now on room air.
Acute bilateral pulmonary emboli -completed Eliquis load, continue at 5 mg twice daily. Lower extremity Doppler ultrasound negative for DVT.
Community-acquired pneumonia -admission chest x-ray with large left lower lobe infiltrate. Completed course of antibiotics.
Moderate left pleural effusion -1.1 L of dark serosanguineous pleural fluid removed on December 15. Fluid analysis consistent with exudate. Differential diagnosis includes infection versus malignancy. Repeat chest x-ray December 15 shows significant
improvement in the left pleural effusion. I spoke with pathologist, concern for malignant cells noted on cytology, possibly gynecologic versus renal origin.
I spoke with family today, daughter and son-in-law, they are not aware of any known history of malignancy other than melanoma. Patient did have a hysterectomy in the past for unclear reasons.
I informed family that they can certainly pursue outpatient follow-up with oncology but treating her conservatively in light of her age and dementia is totally appropriate. Can consider hospice.
Dysphagia -diet advanced to regular with thin liquids per speech therapy recommendation.
Recent UTI grew Klebsiella 12/09/2023
History of UTIs
Was on cefdinir prior to admission.
Hx dementia-moderate, likely Alzheimer's type
Oriented to first and last name, Robert her son but she is unsure of his relation, not place or year
-Fall precautions
-Continue memantine 5 mg daily
Hypothyroidism
-Continue levothyroxine
Hyperlipidemia
-Continue Crestor 20 mg daily,
Depression
cont citalopram 20 mg daily
Chronic ambulatory dysfunction - uses walker at baseline
Dispo -awaiting placement in SNF. Medically stable for discharge. Case management aware.
Anticipated Discharge: Within 24 hours
Subjective/Interval History
-
Date of Service: December 29, 2023
Patient seen and examined. No complaints herself but nursing notes right wrist pain and tenderness.
Objective Data
-
Vital Signs:
Vital Signs
Temp Pulse Resp BP Pulse Ox
98.5 F 78 14 130/65 92
12/29/23 07:00 12/29/23 07:00 12/29/23 07:00 12/29/23 07:00 12/29/23 07:00
I&O
12/28/23 12/29/23 12/30/23
06:59 06:59 06:59
Intake Total 140 / 140
Balance 140 / 140
Review of Systems
-
Unable to obtain full review of systems at this time due to: Dementia
History Source: Patient
All other systems: Reviewed and negative
[2023-12-29] MEDS: DELTASONE 30 MG PO (11:26)
[2023-12-29] MEDS: COLCHICINE 0.599999999999999978 MG PO (12:47)
[2023-12-29 15:00] VITALS: BP 125/71
--- NOTE | 2023-12-29 15:15 | W.PN.UPDATE ---
Update Note
Progress Note Update
Patient lacks decision-making capacity and will need a surrogate decision maker. The reason behind her lack of capacity is her underlying dementia. Her daughter is willing to make decisions on her behalf.
--- NOTE | 2023-12-29 16:00 | CM ---
Received notification from [email or web address] manager unit that patient's daughter was on the line. Placed a call to her back. She stated that the insurance as part of the appeal is requesting that she send in documentation verifying that patient is unable to make
her own decisions and she needs a doctor to highlight that. Spoke with attending who stated that he can write a note confirming that patient is unable to make her own decisions. Rachael stated that once that information is documented, to fax it to
[phone] the Reference # [id number]. Will fax note as soon as it becomes available.
Plan: Case management will continue to follow and assist with discharge planning. Patient's family is hopeful that patient can go to SNF once appeal is through.
[2023-12-29] MEDS: CRESTOR 20 MG PO (20:58)
[2023-12-29] MEDS: VITAMIN D3 (cholecalciferol) 25 MCG PO (20:58)
[2023-12-29] MEDS: CELEXA 20 MG PO (20:58)
[2023-12-29] MEDS: MELATONIN PO (21:25)
[2023-12-29 23:00] VITALS: BP 121/82
[2023-12-30] MEDS: SYNTHROID 88 MCG PO (05:33)
[2023-12-30 07:00] VITALS: BP 133/71
[2023-12-30 08:35] VITALS: BP 123/69; PULSE 73; O2SAT 91
--- NOTE | 2023-12-30 08:54 | W.PN.HOSP.TC ---
Today's Communication/Plan
-
Continue current management. Discharge planning in progress.
Assessment / Plan
Assessment / Plan
Gen-awake, alert, NAD, confused
HEENT-NC, AT, anicteric, clear oral mm
Neck-supple
CV-reg, no M, +S1/S2
Lungs-clear B/L
Abd-soft, NT, ND
Ext-no edema
Musculoskeletal-no cyanosis, clubbing, tender and warm right wrist with limited range of motion
Skin-warm and dry
Neuro-grossly non-focal
Psych-calm, cooperative
A/P:
Acute right wrist arthritis -suspect pseudogout flare. Start course of colchicine, prednisone. Doubt septic arthritis.
Acute hypoxic respiratory insufficiency -due to acute bilateral pulm emboli, pneumonia. Oxygenation improved, now on room air.
Acute bilateral pulmonary emboli -completed Eliquis load, continue at 5 mg twice daily. Lower extremity Doppler ultrasound negative for DVT.
Community-acquired pneumonia -admission chest x-ray with large left lower lobe infiltrate. Completed course of antibiotics.
Moderate left pleural effusion -1.1 L of dark serosanguineous pleural fluid removed on December 15. Fluid analysis consistent with exudate. Differential diagnosis includes infection versus malignancy. Repeat chest x-ray December 15 shows significant
improvement in the left pleural effusion. Dr. Royal spoke with pathologist, concern for malignant cells noted on cytology, possibly gynecologic versus renal origin.
Dr Royal spoke with family, daughter and son-in-law, they are not aware of any known history of malignancy other than melanoma. Patient did have a hysterectomy in the past for unclear reasons.
Dr Royal informed family that they can certainly pursue outpatient follow-up with oncology but treating her conservatively in light of her age and dementia is totally appropriate. Can consider hospice.
I tried to reach daughter today but unavailable.
Dysphagia -diet advanced to regular with thin liquids per speech therapy recommendation.
Recent UTI grew Klebsiella 12/09/2023
History of UTIs
Was on cefdinir prior to admission.
Hx dementia-moderate, likely Alzheimer's type
Oriented to first and last name, Robert her son but she is unsure of his relation, not place or year
-Fall precautions
-Continue memantine 5 mg daily
Hypothyroidism
-Continue levothyroxine
Hyperlipidemia
-Continue Crestor 20 mg daily,
Depression
cont citalopram 20 mg daily
Chronic ambulatory dysfunction - uses walker at baseline
Dispo -awaiting placement in SNF. Medically stable for discharge.
Anticipated Discharge: 24 - 48 hours
Subjective/Interval History
-
Date of Service: December 30, 2023
No new events. Afebrile
Objective Data
-
Vital Signs:
Vital Signs
Temp Pulse Resp BP Pulse Ox
97.8 F 72 17 133/71 95
12/30/23 07:00 12/30/23 07:00 12/30/23 07:00 12/30/23 07:00 12/30/23 07:00
I&O
12/29/23 12/30/23 12/31/23
06:59 06:59 06:59
Intake Total 360 / 360
Balance 360 / 360
[2023-12-30] MEDS: COLCHICINE 0.599999999999999978 MG PO (09:28)
[2023-12-30] MEDS: ELIQUIS 5 MG PO ×2 (09:28→21:22)
[2023-12-30] MEDS: DELTASONE 30 MG PO (09:28)
[2023-12-30] MEDS: NAMENDA 5 MG PO (09:29)
[2023-12-30] MEDS: FEOSOL 325 MG PO (09:29)
[2023-12-30] MEDS: PROTONIX 40 MG PO (09:29)
--- NOTE | 2023-12-30 12:06 | CM ---
Faxed attending's note indicating that patient is not capable of making her own decisions, to the number provided by patient's daughter.
Plan: Case management will continue to follow and assist with discharge planning. Family hopeful for auth so that patient can transfer to SNF.
[2023-12-30 15:00] VITALS: BP 127/77
[2023-12-30] MEDS: CELEXA 20 MG PO (21:21)
[2023-12-30] MEDS: VITAMIN D3 (cholecalciferol) 25 MCG PO (21:22)
[2023-12-30] MEDS: CRESTOR 20 MG PO (21:22)
[2023-12-30] MEDS: MELATONIN 5 MG PO (21:22)
[2023-12-30 23:04] VITALS: BP 117/74
[2023-12-31] MEDS: SYNTHROID 88 MCG PO (05:33)
[2023-12-31 07:12] LABS: Hematocrit 29.9 % (37.0-47.0); Hemoglobin 9.5 g/dL (12.0-16.0)
[2023-12-31 07:45] LABS: Blood Urea Nitrogen 16 mg/dl (7-17); Calcium 10.1 mg/dl (8.4-10.2); Carbon Dioxide 28 mmol/L (22-30); Chloride 100 mmol/L (98-107); Estimated Creatinine Clearance 70 ml/min; Glucose 97 mg/dl (70-99); Potassium 3.8 mmol/L (3.5-5.1); Sodium 134 mmol/L (135-145); eGFR > 60.00
--- NOTE | 2023-12-31 08:13 | W.PN.HOSP.TC ---
Today's Communication/Plan
-
Oncology eval. Discharge planning in progress.
Assessment / Plan
Assessment / Plan
Gen-awake, alert, NAD, confused
HEENT-NC, AT, anicteric, clear oral mm
Neck-supple
CV-reg, no M, +S1/S2
Lungs-clear B/L
Abd-soft, NT, ND
Ext-no edema
Musculoskeletal-no cyanosis, clubbing, tender and warm right wrist with limited range of motion
Skin-warm and dry
Neuro-grossly non-focal
Psych-calm, cooperative
A/P:
Acute right wrist arthritis -suspect pseudogout flare. Start course of colchicine, prednisone. Doubt septic arthritis.
Acute hypoxic respiratory insufficiency -due to acute bilateral pulm emboli, pneumonia. Oxygenation improved, now on room air.
Acute bilateral pulmonary emboli -completed Eliquis load, continue at 5 mg twice daily. Lower extremity Doppler ultrasound negative for DVT.
Community-acquired pneumonia -admission chest x-ray with large left lower lobe infiltrate. Completed course of antibiotics.
Moderate left pleural effusion -1.1 L of dark serosanguineous pleural fluid removed on December 15. Fluid analysis consistent with exudate. Differential diagnosis includes infection versus malignancy. Repeat chest x-ray December 15 shows significant
improvement in the left pleural effusion. Dr. Royal spoke with pathologist, concern for malignant cells noted on cytology, possibly gynecologic versus renal origin.
Dr Royal spoke with family, daughter and son-in-law, they are not aware of any known history of malignancy other than melanoma. Patient did have a hysterectomy in the past for unclear reasons.
Dr Royal informed family that they can certainly pursue outpatient follow-up with oncology but treating her conservatively in light of her age and dementia is totally appropriate. Can consider hospice.
I tried to reach daughter today but unavailable.
Will request oncology evaluation for further advice and coordination.
Dysphagia -diet advanced to regular with thin liquids per speech therapy recommendation.
Recent UTI grew Klebsiella 12/09/2023
History of UTIs
Was on cefdinir prior to admission.
Hx dementia-moderate, likely Alzheimer's type
Oriented to first and last name, Robert her son but she is unsure of his relation, not place or year
-Fall precautions
-Continue memantine 5 mg daily
Hypothyroidism
-Continue levothyroxine
Hyperlipidemia
-Continue Crestor 20 mg daily,
Depression
cont citalopram 20 mg daily
Chronic ambulatory dysfunction - uses walker at baseline
Dispo -awaiting placement in SNF. Medically stable for discharge.
Anticipated Discharge: 24 - 48 hours
Subjective/Interval History
-
Date of Service: December 31, 2023
No new complaints.
Objective Data
-
Labs:
Laboratory Results
12/31/23
06:50
Hgb 9.5 L
Hct 29.9 L
Sodium 134 L
Potassium 3.8
Chloride 100
Carbon Dioxide 28
BUN 16
Creatinine 0.7
Glucose 97
Calcium 10.1
Vital Signs:
Vital Signs
Temp Pulse Resp BP Pulse Ox
97.4 F 70 16 117/74 94
12/30/23 23:04 12/30/23 23:04 12/30/23 23:04 12/30/23 23:04 12/30/23 23:04
I&O
12/30/23 12/31/23 01/01/24
06:59 06:59 06:59
Intake Total 360 / 360 300 / 300
Balance 360 / 360 300 / 300
[2023-12-31 08:21] VITALS: BP 105/71
[2023-12-31] MEDS: DELTASONE 30 MG PO (08:43)
[2023-12-31] MEDS: DELTASONE 20 MG PO (08:43)
[2023-12-31] MEDS: FEOSOL 325 MG PO (08:44)
[2023-12-31] MEDS: PROTONIX 40 MG PO (08:44)
[2023-12-31] MEDS: COLCHICINE 0.599999999999999978 MG PO (08:44)
[2023-12-31] MEDS: ELIQUIS 5 MG PO ×2 (08:45→21:32)
[2023-12-31] MEDS: NAMENDA 5 MG PO (08:45)
[2023-12-31 15:58] VITALS: BP 118/67; BP 124/71; PULSE 67; O2SAT 92
--- NOTE | 2023-12-31 16:03 | CON.ONC ---
Impression
Impression
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
dementia
Plan
Plan
Because of significant dementia, she's not a good candidate for chemotherapy or other aggressive treatment
I called daughter to discuss, but only got voice mail
If family is interested in further work-up, would start with imaging of the A/P (CT scan scans w/ IV contrast)
Otherwise, hospice is appropriate
Patient History
History of Present Illness
78 yo w/ underlying dementia, presented with increasing cough and wheezing. Imaging was noted for pulmonary emboli, R>L pleural effusions, and possible pneumonia. She was admitted to the hospital, started on anticoagulation (now Eliquis 5mg bid),
treated with abx and underwent thoracentesis. Left thora on 12/15 resulted in drainage of 1100cc dark serosanguinous fluid. 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
Patient is unable to give any history. She says she lives alone, here at the hospital. I called her daughter/supervisor contact and service clerks and got voice mail.
Reported history of hysterectomy, but no h/o cancer other than melanoma
Past-Medical/Surgical History
Past Medical History
Past Medical History: Reports Other
Additional Past Medical History:
dementia-moderate
ex-smoker quit 197
HLD
UTIs
hypothyroidism
depression
precancerous skin lesion with removal nose
chronic ambulatory dysfunction uses walker at baseline
Past Surgical History: Reports Other
Additional Past Surgical History:
Hip replacement
Hysterectomy
Appendectomy
Precancerous lesion nose removal
Lasix eye surgery
Social History
Tobacco: Former Smoker (Quit 1974)
Alcohol: None
Drug: None
Personal:
Living: With Family (With [place] independent but has private care assistance per family)
Employment: Retired
Family History
Family History: Unable to Obtain
Patient Medication
�Medication �Instructions �Recorded �Confirmed �Last Taken �Type
citalopram 20 mg tablet 20 mg PO HS Mental Health/Anxiety 09/10/23 12/14/23 Unknown History
ferrous sulfate 325 mg (65 mg 325 mg PO DAILY supplement 09/10/23 12/14/23 Unknown History
iron) tablet
levothyroxine 88 mcg tablet 88 mcg PO DAILY hypothyroidism 09/10/23 12/14/23 Unknown History
memantine 5 mg tablet 5 mg PO DAILY cognition 09/10/23 12/14/23 Unknown History
multivitamin-ferrous 1 tab PO HS supplement 09/10/23 12/14/23 Unknown History
fumarate-folic acid 18 mg-400 mcg
tablet (Centrum Women)
rosuvastatin 20 mg tablet 20 mg PO HS high cholesterol 09/10/23 12/14/23 Unknown History
cefdinir 300 mg capsule 300 mg PO BID #14 caps 12/09/23 12/14/23 12/14/23 Rx
Citracal 1 tab PO HS Gastrointestinal Issue 12/14/23 12/14/23 Unknown History
cholecalciferol (vitamin D3) 25 25 mcg PO HS Supplement 12/14/23 12/14/23 Unknown History
mcg (1,000 unit) tablet
meloxicam 15 mg tablet 15 mg PO HS Pain 12/14/23 12/14/23 Unknown History
omeprazole 20 mg capsule,delayed 20 mg PO DAILY Gastrointestinal 12/14/23 12/14/23 Unknown History
release Issue
Active Medications
Generic Name Dose Route Start Last Admin
Trade Name Freq PRN Reason Stop Dose Admin
Acetaminophen 650 mg 12/14/23 20:04 12/29/23 05:29
Acetaminophen 325 Mg Tablet PO 01/11/24 20:03 650 mg
Q6HPRN PRN Administration
mild pain/ fever>100.5F
Apixaban 5 mg 12/24/23 20:00 12/31/23 08:45
Apixaban (Eliquis) 5 Mg Tablet PO 01/21/24 19:59 5 mg
BID KEVAN Administration
Bisacodyl 10 mg 12/14/23 20:04
Bisacodyl 10 Mg Rectal Suppository RECTAL 01/11/24 20:03
[id number] PRN
constipation
Cholecalciferol 25 mcg 12/14/23 22:00 12/30/23 21:22
Cholecalciferol (Vitamin D3) 25 Mcg Tablet (1,000 Units) PO 01/11/24 21:59 25 mcg
HS KEVAN Administration
Citalopram Hydrobromide 20 mg 12/14/23 22:00 12/30/23 21:21
Citalopram 20 Mg Tablet PO 01/11/24 21:59 20 mg
HS KEVAN Administration
Colchicine 0.6 mg 12/29/23 10:00 12/31/23 08:44
Colchicine 0.6 Mg Tablet PO 01/26/24 09:59 0.6 mg
DAILY KEVAN Administration
Ferrous Sulfate 325 mg 12/15/23 08:00 12/31/23 08:44
Ferrous Sulfate 325 Mg Tablet PO 01/12/24 07:59 325 mg
DAILY KEVAN Administration
Guaifenesin 100 mg 12/21/23 15:00 12/24/23 20:51
Guaifenesin Oral Solution (200 Mg/10 Ml) Cup PO 01/18/24 14:59 100 mg
Q4HPRN PRN Administration
cough
Levothyroxine Sodium 88 mcg 12/24/23 06:00 12/31/23 05:33
Levothyroxine 88 Mcg Tablet PO 01/21/24 05:59 88 mcg
DAILY@0600 KEVAN Administration
Melatonin 5 mg 12/14/23 22:00 12/30/23 21:22
Melatonin 5 Mg Tablet PO 01/11/24 21:59 5 mg
HS KEVAN Administration
Memantine 5 mg 12/27/23 12:00 12/31/23 08:45
Memantine 10 Mg Tablet PO 01/24/24 11:59 5 mg
DAILY KEVAN Administration
Pantoprazole Sodium 40 mg 12/15/23 08:00 12/31/23 08:44
Pantoprazole 40 Mg Delayed Release Tablet PO 01/12/24 07:59 40 mg
DAILY KEVAN Administration
Polyethylene Glycol 17 grams 12/14/23 20:04
Polyethylene Glycol Powder 17 Grams Packet PO 01/11/24 20:03
DAILYPRN PRN
constipation
Prednisone 20 mg 12/31/23 09:00 12/31/23 08:43
Prednisone 20 Mg Tablet PO 01/28/24 08:59 20 mg
DAILY KEVAN Administration
Rosuvastatin Calcium 20 mg 12/14/23 22:00 12/30/23 21:22
Rosuvastatin (Crestor) 20 Mg Tablet PO 01/11/24 21:59 20 mg
HS KEVAN Administration
Senna/Docusate Sodium 1 tablet 12/14/23 20:04
Docusate W/Senna (Marisol-Colace) Tablet PO 01/11/24 20:03
BIDPRN PRN
constipation
Sodium Chloride 0 flush 12/14/23 19:00
Sodium Chloride 0.9% (Flush) Syringe IV 01/11/24 18:59
PER PROTOCOL KEVAN
Physical Exam
-
General: Comfortable; Negative Appears in Distress
Cardiology: Normal Sinus Rhythm
Pulmonary: Other (decreased at bases)
GI: Soft, Normal Bowel Sounds and No Organomegaly; Negative Distended
Musculoskeletal: No Clubbing, No Cyanosis and No Edema
Neurology: Other (dementia)
Skin: Warm and Dry
Psych: Apparent Dementia; Negative Intact Judgement/Insight
Labs
Lab Results
WBC 13.4 10^3/uL (4.8-10.8) H 12/22/23 05:46
RBC 3.75 10^6/uL (4.20-5.40) L 12/22/23 05:46
Hgb 9.5 g/dL (12.0-16.0) L 12/31/23 06:50
Hct 29.9 % (37.0-47.0) L 12/31/23 06:50
MCV 84.0 fL (81.0-99.0) 12/22/23 05:46
MCH 28.3 pg (27.0-31.0) 12/22/23 05:46
MCHC 33.7 g/dL (33.0-37.0) 12/22/23 05:46
RDW 14.9 % (11.5-14.5) H 12/22/23 05:46
Plt Count 466 10^3/uL (130-400) H D 12/22/23 05:46
MPV 10.1 fL (7.4-10.4) 12/22/23 05:46
Abs Immat Gran (auto) 0.7 10^3/uL (0-0.05) H 12/22/23 05:46
Absolute Neuts (auto) 10.3 10^3/uL (1.4-6.5) H 12/22/23 05:46
Absolute Lymphs (auto) 1.4 10^3/uL (1.2-3.4) 12/22/23 05:46
Absolute Monos (auto) 0.9 10^3/uL (0.1-0.6) H 12/22/23 05:46
Absolute Eos (auto) 0.2 10^3/uL (0-0.7) 12/22/23 05:46
Absolute Basos (auto) 0.0 10^3/uL (0-0.2) 12/22/23 05:46
Immature Gran % 5.3 % (0-0.5) H 12/22/23 05:46
Neutrophils % 76.9 % (42.2-75.2) H 12/22/23 05:46
Lymphocytes % 10.1 % (20.5-51.1) L 12/22/23 05:46
Monocytes % 6.4 % (1.7-9.3) 12/22/23 05:46
Eosinophils % 1.1 % (0-6) 12/22/23 05:46
Basophils % 0.2 % (0-2) 12/22/23 05:46
Creatinine 0.7 mg/dL (0.6-1.0) 12/31/23 06:50
Vital Signs
Vital Signs
Temp Pulse Resp BP Pulse Ox
97.7 F 68 12 124/71 93
12/31/23 15:58 12/31/23 15:58 12/31/23 15:58 12/31/23 15:58 12/31/23 15:58
[2023-12-31] MEDS: MELATONIN 5 MG PO (21:32)
[2023-12-31] MEDS: VITAMIN D3 (cholecalciferol) 25 MCG PO (21:32)
[2023-12-31] MEDS: CRESTOR 20 MG PO (21:32)
[2023-12-31] MEDS: CELEXA 20 MG PO (21:32)
[2023-12-31 23:00] VITALS: BP 116/65
[2024-01-01 07:00] VITALS: BP 132/82
[2024-01-01] MEDS: SYNTHROID 88 MCG PO (07:40)
--- NOTE | 2024-01-01 08:14 | W.PN.HOSP.TC ---
Today's Communication/Plan
-
CT of the abdomen. Discharge planning in progress
Assessment / Plan
Assessment / Plan
Gen-awake, alert, NAD, confused
HEENT-NC, AT, anicteric, clear oral mm
Neck-supple
CV-reg, no M, +S1/S2
Lungs-clear B/L
Abd-soft, NT, ND
Ext-no edema
Musculoskeletal-no cyanosis, clubbing, tender and warm right wrist with limited range of motion
Skin-warm and dry
Neuro-grossly non-focal
Psych-calm, cooperative
A/P:
Acute right wrist arthritis -suspect pseudogout flare. Start course of colchicine, prednisone. Doubt septic arthritis.
Acute hypoxic respiratory insufficiency -due to acute bilateral pulm emboli, pneumonia. Oxygenation improved, now on room air.
Acute bilateral pulmonary emboli -completed Eliquis load, continue at 5 mg twice daily. Lower extremity Doppler ultrasound negative for DVT.
Community-acquired pneumonia -admission chest x-ray with large left lower lobe infiltrate. Completed course of antibiotics.
Moderate left pleural effusion -1.1 L of dark serosanguineous pleural fluid removed on December 15. Fluid analysis consistent with exudate. Differential diagnosis includes infection versus malignancy. Repeat chest x-ray December 15 shows significant
improvement in the left pleural effusion. Dr. Royal spoke with pathologist, concern for malignant cells noted on cytology, possibly gynecologic versus renal origin.
Dr Royal spoke with family, daughter and son-in-law, they are not aware of any known history of malignancy other than melanoma. Patient did have a hysterectomy in the past for unclear reasons.
Dr Royal informed family that they can certainly pursue outpatient follow-up with oncology but treating her conservatively in light of her age and dementia is totally appropriate. Can consider hospice.
I tried to reach daughter today but unavailable.
Oncology consult appreciated. application manager discussed hospice with family but they are not ready. Will proceed for CT of the abdomen and pelvis with contrast as recommended by oncology. Will reach out to family again later today or tomorrow.
Dysphagia -diet advanced to regular with thin liquids per speech therapy recommendation.
Recent UTI grew Klebsiella 12/09/2023
History of UTIs
Was on cefdinir prior to admission.
Hx dementia-moderate, likely Alzheimer's type
Oriented to first and last name, Robert her son but she is unsure of his relation, not place or year
-Fall precautions
-Continue memantine 5 mg daily
Hypothyroidism
-Continue levothyroxine
Hyperlipidemia
-Continue Crestor 20 mg daily,
Depression
cont citalopram 20 mg daily
Chronic ambulatory dysfunction - uses walker at baseline
Dispo -awaiting placement in SNF. Medically stable for discharge.
Anticipated Discharge: 24 - 48 hours
Subjective/Interval History
-
Date of Service: January 01, 2024
No new complaints.
Objective Data
-
Vital Signs:
Vital Signs
Temp Pulse Resp BP Pulse Ox
98.3 F 71 18 116/65 92
12/31/23 23:00 12/31/23 23:00 12/31/23 23:00 12/31/23 23:00 12/31/23 23:00
I&O
12/31/23 01/01/24 01/02/24
06:59 06:59 06:59
Intake Total 300 / 300 360 / 360
Balance 300 / 300 360 / 360
[2024-01-01 08:55] VITALS: PULSE 65; O2SAT 95
[2024-01-01] MEDS: ELIQUIS 5 MG PO (10:35)
[2024-01-01] MEDS: NAMENDA 5 MG PO (10:35)
[2024-01-01] MEDS: DELTASONE 20 MG PO (10:35)
[2024-01-01] MEDS: COLCHICINE 0.599999999999999978 MG PO (10:35)
[2024-01-01] MEDS: FEOSOL 325 MG PO (10:35)
[2024-01-01] MEDS: PROTONIX 40 MG PO (10:36)
--- NOTE | 2024-01-01 14:05 | CM ---
business planning manager reviewed patient's chart and spoke with patient's daughter in law today Rachael, per previous notes documentation on capacity was faxed to [phone], mattress spring encaser reached out to patient's daughter in law to make her aware but
daughter in law did not answer phone and voice mail is full. business planning manager will attempt to contact patient's son.
Plan; To follow up with patient's daughter in law Rachael.
[2024-01-01 15:00] VITALS: BP 109/65
--- NOTE | 2024-01-01 17:33 | CM ---
Call placed to [employer] to check on status of expedited member appeal for this patient. Transferred to various numbers and spoke to a number of representatives. Eventually reached May. Castelan who stated that the expedited member appeal is still in
progress, however she stated that they will have a determination tomorrow , she asked that we call after 9:46 am to obtain determination. The patient's daughter will be notified of the determination. Update to
[2024-01-01] MEDS: VITAMIN D3 (cholecalciferol) PO ×2 (21:55→23:43)
[2024-01-01] MEDS: ELIQUIS PO ×2 (21:55→23:42)
[2024-01-01] MEDS: CRESTOR PO ×2 (21:55→23:42)
[2024-01-01] MEDS: CELEXA PO ×2 (21:55→23:42)
[2024-01-01] MEDS: MELATONIN PO ×2 (21:58→23:43)
[2024-01-01 23:00] VITALS: BP 124/83
[2024-01-02] MEDS: SYNTHROID 88 MCG PO (05:45)
[2024-01-02 07:00] VITALS: BP 120/74
[2024-01-02 07:21] LABS: Hematocrit 31.5 % (37.0-47.0); Hemoglobin 10.2 g/dL (12.0-16.0); Mean Corp Hgb Conc. 32.4 g/dL (33.0-37.0); Mean Corpuscular Hgb 27.9 pg (27.0-31.0); Mean Corpuscular Volume 86.1 fL (81.0-99.0); Mean Platelet Volume 9.9 fL (7.4-10.4); Platelet Count 408 10^3/uL (130-400); Red Blood Cell Count 3.66 10^6/uL (4.20-5.40); Red Cell Dist. Width 14.7 % (11.5-14.5); White Blood Cell Count 7.6 10^3/uL (4.8-10.8)
[2024-01-02 07:43] LABS: Blood Urea Nitrogen 21 mg/dl (7-17); Calcium 9.9 mg/dl (8.4-10.2); Carbon Dioxide 30 mmol/L (22-30); Chloride 101 mmol/L (98-107); Estimated Creatinine Clearance 70 ml/min; Glucose 86 mg/dl (70-99); Potassium 3.8 mmol/L (3.5-5.1); Sodium 137 mmol/L (135-145); eGFR > 60.00
--- NOTE | 2024-01-02 08:38 | W.PN.HOSP.TC ---
Today's Communication/Plan
-
Continue current care. Discharge planning in progress
Assessment / Plan
Assessment / Plan
Gen-awake, alert, NAD, confused
HEENT-NC, AT, anicteric, clear oral mm
Neck-supple
CV-reg, no M, +S1/S2
Lungs-clear B/L
Abd-soft, NT, ND
Ext-no edema
Musculoskeletal-no cyanosis, clubbing, tender and warm right wrist with limited range of motion
Skin-warm and dry
Neuro-grossly non-focal
Psych-calm, cooperative
A/P:
Acute right wrist arthritis -suspect pseudogout flare. Start course of colchicine, prednisone-will stop in 2 more doses. Doubt septic arthritis.
Acute hypoxic respiratory insufficiency -due to acute bilateral pulm emboli, pneumonia. Oxygenation improved, now on room air.
Acute bilateral pulmonary emboli -completed Eliquis load, continue at 5 mg twice daily. Lower extremity Doppler ultrasound negative for DVT.
Community-acquired pneumonia -admission chest x-ray with large left lower lobe infiltrate. Completed course of antibiotics.
Moderate left pleural effusion -1.1 L of dark serosanguineous pleural fluid removed on December 15. Fluid analysis consistent with exudate. Differential diagnosis includes infection versus malignancy. Repeat chest x-ray December 15 shows significant
improvement in the left pleural effusion. Dr. Royal spoke with pathologist, concern for malignant cells noted on cytology, possibly gynecologic versus renal origin.
Dr Royal spoke with family, daughter and son-in-law, they are not aware of any known history of malignancy other than melanoma. Patient did have a hysterectomy in the past for unclear reasons.
Dr Royal informed family that they can certainly pursue outpatient follow-up with oncology but treating her conservatively in light of her age and dementia is totally appropriate. Can consider hospice.
I tried to reach daughter today but unavailable.
Oncology consult appreciated.
Family not ready for hospice
Discussed with family (daughter) today in the morning and afternoon- details hospitalization and next steps and prognosis. Daughter agreeable with plan of care and discharge disposition.
Plan for CT A/P today w/contrast as recommended by oncology
Dysphagia -diet advanced to regular with thin liquids per speech therapy recommendation.
Recent UTI grew Klebsiella 12/09/2023
History of UTIs
Was on cefdinir prior to admission.
Hx dementia-moderate, likely Alzheimer's type
Oriented to first and last name, Robert her son but she is unsure of his relation, not place or year
-Fall precautions
-Continue memantine 5 mg daily
Hypothyroidism
-Continue levothyroxine
Hyperlipidemia
-Continue Crestor 20 mg daily,
Depression
cont citalopram 20 mg daily
Chronic ambulatory dysfunction - uses walker at baseline
Dispo -awaiting placement in SNF. Medically stable for discharge.
Anticipated Discharge: 24 - 48 hours
Subjective/Interval History
-
Date of Service: January 02, 2024
No new complaints.
Objective Data
-
Labs:
Laboratory Results
01/02/24
06:40
WBC 7.6
Hgb 10.2 L
Hct 31.5 L
Plt Count 408 H
Sodium 137
Potassium 3.8
Chloride 101
Carbon Dioxide 30
BUN 21 H
Creatinine 0.7
Glucose 86
Calcium 9.9
Vital Signs:
Vital Signs
Temp Pulse Resp BP Pulse Ox
97.2 F 65 16 120/74 95
01/02/24 07:00 01/02/24 07:00 01/02/24 07:00 01/02/24 07:00 01/02/24 07:00
I&O
01/01/24 01/02/24 01/03/24
06:59 06:59 06:59
Intake Total 360 / 360 320 / 320
Balance 360 / 360 320 / 320
[2024-01-02] MEDS: PROTONIX 40 MG PO (08:43)
[2024-01-02] MEDS: ELIQUIS 5 MG PO ×2 (08:43→21:17)
[2024-01-02] MEDS: FEOSOL 325 MG PO (08:43)
[2024-01-02] MEDS: COLCHICINE 0.599999999999999978 MG PO (08:43)
[2024-01-02] MEDS: NAMENDA 5 MG PO (08:43)
[2024-01-02] MEDS: DELTASONE 20 MG PO (08:44)
--- NOTE | 2024-01-02 13:36 | CM ---
Addendum entered by GAMA Tang 01/02/24 17:02:
Received call from patient's son who stated that patient's daughter in law got authorization from insurance. Upon asking him for the reference/auth# he stated that he did not have it and patient's daughter was in court. Explanation was provided that
patient will need authorization number for SNF. Placed a call to Gretta at [facility] to determine bed availability. She stated that she still has no beds this week.
Will call patient's son and daughter in law tomorrow. If authorization has been received she can transfer to SNF with bed availability and if not, she can return back to her apartment with support of community to help her determine if she needs a
higher level of care.
Original Note:
Placed a call to [phone] and was transferred to a senior outside sales representative, named Namrata Dominguez Who stated [facility] determination of appeal has not yet been rendered. Namrata was advised that a call was made yesterday and a rep named Geena Weston stated that it would be
available today. Namrata stated that it is still pending. Ref # is [id number].
director made aware.
Plan: Case management will continue to follow and assist with discharge planning. Hopeful determination will be received by tomorrow.
[2024-01-02 16:00] VITALS: BP 119/71
[2024-01-02] MEDS: MELATONIN 5 MG PO (21:12)
[2024-01-02] MEDS: CELEXA 20 MG PO (21:17)
[2024-01-02] MEDS: VITAMIN D3 (cholecalciferol) 25 MCG PO (21:17)
[2024-01-02] MEDS: CRESTOR 20 MG PO (21:17)
[2024-01-02 23:00] VITALS: BP 122/76
[2024-01-03] MEDS: SYNTHROID 88 MCG PO (05:48)
[2024-01-03 07:27] LABS: Blood Urea Nitrogen 18 mg/dl (7-17); Calcium 9.8 mg/dl (8.4-10.2); Carbon Dioxide 27 mmol/L (22-30); Chloride 102 mmol/L (98-107); Estimated Creatinine Clearance 70 ml/min; Glucose 88 mg/dl (70-99); Potassium 3.7 mmol/L (3.5-5.1); Sodium 133 mmol/L (135-145); eGFR > 60.00
[2024-01-03 07:29] VITALS: BP 134/86
--- NOTE | 2024-01-03 08:27 | W.PN.HOSP.TC ---
Today's Communication/Plan
-
Discharge planning today
Assessment / Plan
Assessment / Plan
Gen-awake, alert, NAD, confused
HEENT-NC, AT, anicteric, clear oral mm
Neck-supple
CV-reg, no M, +S1/S2
Lungs-clear B/L
Abd-soft, NT, ND
Ext-no edema
Musculoskeletal-no cyanosis, clubbing, tender and warm right wrist with limited range of motion
Skin-warm and dry
Neuro-grossly non-focal
Psych-calm, cooperative
A/P:
Acute right wrist arthritis -suspect pseudogout flare. Start course of colchicine, prednisone-will stop in 2 more doses. Doubt septic arthritis.
Acute hypoxic respiratory insufficiency -due to acute bilateral pulm emboli, pneumonia. Oxygenation improved, now on room air.
Acute bilateral pulmonary emboli -completed Eliquis load, continue at 5 mg twice daily. Lower extremity Doppler ultrasound negative for DVT.
Community-acquired pneumonia -admission chest x-ray with large left lower lobe infiltrate. Completed course of antibiotics.
Moderate left pleural effusion -1.1 L of dark serosanguineous pleural fluid removed on December 15. Fluid analysis consistent with exudate. Differential diagnosis includes infection versus malignancy. Repeat chest x-ray December 15 shows significant
improvement in the left pleural effusion. Dr. Royal spoke with pathologist, concern for malignant cells noted on cytology, possibly gynecologic versus renal origin.
Dr Royal spoke with family, daughter and son-in-law, they are not aware of any known history of malignancy other than melanoma. Patient did have a hysterectomy in the past for unclear reasons.
Dr Royal informed family that they can certainly pursue outpatient follow-up with oncology but treating her conservatively in light of her age and dementia is totally appropriate. Can consider hospice.
I tried to reach daughter today but unavailable.
Oncology consult appreciated.
Family not ready for hospice
Discussed with family (daughter) yesterday in the morning and afternoon- details hospitalization and next steps and prognosis. Daughter agreeable with plan of care and discharge disposition.
S/P CT A/P w/contrast as recommended by oncology--> reviewed findings with family-they will f/u with oncology as OP.
Dysphagia -diet advanced to regular with thin liquids per speech therapy recommendation.
Recent UTI grew Klebsiella 12/09/2023
History of UTIs
Was on cefdinir prior to admission.
Hx dementia-moderate, likely Alzheimer's type
Oriented to first and last name, Robert her son but she is unsure of his relation, not place or year
-Fall precautions
-Continue memantine 5 mg daily
Hypothyroidism
-Continue levothyroxine
Hyperlipidemia
-Continue Crestor 20 mg daily,
Depression
cont citalopram 20 mg daily
Chronic ambulatory dysfunction - uses walker at baseline
Dispo -awaiting placement in SNF. Medically stable for discharge.
Anticipated Discharge: Today
Subjective/Interval History
-
Date of Service: January 03, 2024
No new complaints
Objective Data
-
Labs:
Laboratory Results
01/03/24
06:15
Sodium 133 L
Potassium 3.7
Chloride 102
Carbon Dioxide 27
BUN 18 H
Creatinine 0.7
Glucose 88
Calcium 9.8
Vital Signs:
Vital Signs
Temp Pulse Resp BP Pulse Ox
98.1 F 57 16 134/86 96
01/03/24 07:29 01/03/24 07:29 01/03/24 07:29 01/03/24 07:29 01/03/24 07:29
I&O
01/02/24 01/03/24 01/04/24
06:59 06:59 06:59
Intake Total 320 / 320 280 / 280
Balance 320 / 320 280 / 280
[2024-01-03] MEDS: FEOSOL 325 MG PO (09:17)
[2024-01-03] MEDS: PROTONIX 40 MG PO (09:17)
[2024-01-03] MEDS: NAMENDA 5 MG PO (09:18)
[2024-01-03] MEDS: DELTASONE 10 MG PO (09:18)
[2024-01-03] MEDS: ELIQUIS 5 MG PO (09:18)
[2024-01-03] MEDS: COLCHICINE 0.599999999999999978 MG PO (09:18)
--- NOTE | 2024-01-03 11:21 | W.DCSUMMARY ---
Discharge Summary
Discharge Data
Date of Admission: 12/14/23
Date of Discharge: 01/03/24
-
Pending Results: No
Hospital Course
Patient is 78 years old female history of dementia, depression, hypothyroidism, obesity, presented to the hospital cough shortness of breath and wheezing. Pulmonary consulted. Patient found to have pneumonia treated with antibiotics. Patient also
found to have PE. She was treated with anticoagulation. She also had pleural effusions and underwent thoracentesis. 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 Oncology
consulted. She had a CT scan of the abdomen and pelvis and will have her follow-up with oncology as outpatient. Patient appears to be hospice candidate but family rather would like to pursue further evaluation as outpatient with oncology. Patient
also developed mild flare of pseudogout arthritis for which she was placed on steroids and colchicine and she is on a tapering course. Otherwise, patient is hemodynamically stable afebrile oxygenating well. She is stable to be discharged to
assisted facility today.
Discharge duration: 35 minutes
Discharge Plan
-
Patient Disposition: [facility]NF
Discharge Diagnosis/Procedures: Acute Pulmonary embolism.
Pneumonia.
Pseudo-gout flare.
Malignancy unknown primary.
Condition: Good
Diet: Regular
Activity: As tolerated
Blood Work: Please PCP to order CBC, BMP within 1 week
Referrals:
Sindhu Conley CRNP [Family Provider] - in less than 1 week
Rubens Jimenez MD [Active] - in two to four weeks
Shaneka Serrato MD [Active] - in two to four weeks
Prescriptions:
New
bisacodyl 10 mg Suppository
10 mg TN [id number] PRN (Reason: constipation) Qty: 30 0RF
ipratropium-albuterol 0.5 mg-3 mg(2.5 mg base)/3 mL Solution For Nebulization
3 ml inhalation R Q4HPRN PRN (Reason: wheezing) Qty: 30 0RF
polyethylene glycol 3350 [HealthyLax] 17 gram Powder In Packet
17 g PO DAILYPRN PRN (Reason: constipation) Qty: 30 0RF
guaifenesin 600 mg Tablet Extended Release 12hr
600 mg PO Q12 Qty: 30 0RF
acetaminophen 325 mg Tablet
650 mg PO Q6HPRN PRN (Reason: mild pain/ fever>100.5F) Qty: 60 0RF
Eliquis 5 mg Tablet
5 mg PO BID Qty: 60 0RF
colchicine 0.6 mg Tablet
0.6 mg PO DAILY 7 Days Qty: 7 0RF
prednisone 10 mg Tablet
10 mg PO DAILY 2 Days Qty: 2 0RF
Continued
levothyroxine 88 mcg tablet
88 mcg PO DAILY
citalopram 20 mg tablet
20 mg PO HS
ferrous sulfate 325 mg (65 mg iron) Tablet
325 mg PO DAILY
rosuvastatin 20 mg tablet
20 mg PO HS
memantine 5 mg tablet
5 mg PO DAILY
Centrum Women 18-400 mg-mcg Tablet
1 tab PO HS
omeprazole 20 mg Capsule,Delayed Release(Dr/Ec)
20 mg PO DAILY
cholecalciferol (vitamin D3) 25 mcg (1,000 unit) Tablet
25 mcg PO HS
Citracal
1 tab PO HS
Discontinued
cefdinir 300 mg capsule
300 mg PO BID Qty: 14 0RF
Patient Comments:
12/14/2023, filled on 12/09/2023 and instructed to take one capsule BID for 7 days.
meloxicam 15 mg Tablet
15 mg PO HS
Discharge Orders:
Discharge Patient (As Directed); Ordered 01/03/24
Ordered By: Morteza Jordan
Discharge Date and Time
Discharge Date/Time: 01/03/24 18:11
Print Language: SAMMARINESE
--- NOTE | 2024-01-03 11:58 | CM ---
Addendum entered by GAMA Tang 01/03/24 12:30:
Received call from patient's daughter in law- voice mail requesting confirmation that [facility] will be covered as it is an out of network facility. Placed a return call back to patient's daughter in law and had to leave a voice mail. Advised her that
Serena from [facility] stated that admission to facility is approved and auth was obtained. This information was also provided to Anaya in admissions at [facility], therefore if there is a discrepancy, she can relocate patient to an in network facility under
[facility] which would be [facility] or [facility].
Original Note:
Spoke with patient's son who stated that he never did obtain the auth number from patient's daughter in law. Called patient's daughter in law who provided auth number. Prior to the chance to call [facility] Received call from Serena at [facility] who stated that
patient has been approved from 01/02-01/06 for skilled level of care. Auth# [id number] review should be faxed to [phone].
Placed a call to Anaya in admissions at [facility] who confirmed ability to accept patient. # For report [phone] and fax# [phone].
Attending updated. Placed a call to patient's daughter and left voice mail message to update. Provided CM contact information but was clear that patient will transfer today and she should call with any questions.
Plan: Case management will continue to follow and assist with discharge planning. Transfer to [facility].
--- NOTE | 2024-01-03 13:05 | W.PN.ONC2 ---
Today's Communication / Plan
-
CT without visceral mets or renal lesion, findings of possible pelvic wall deposit, subtle carcinomatosis fitting with brokerage clerk primary.
family deferring hospice at this time and will see us in office.
Impression
Impression
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
dementia
Plan
Plan
work up for malignant effusion showed cytology positive for malignant cells with IHC suggestive for brokerage clerk vs. renal primary. CT A/P showed no suspicious renal lesions, cysts noted. pelvic wall deposit and subtle abdominal wall stranding that may
represent peritoneal carcinomatosis.
Because of significant dementia, she's not a good candidate for chemotherapy or other aggressive treatment and is hospice appropriate. This was discussed with the family who declined hospice at this time. Pt can see us in the office to discuss
prognosis, management options in more detail.
Ok for discharge
Subjective/Objective
Chief Complaint
malignant pleural effusion
Subjective
pt poor historian due to underlying dementia. Denies worsening SOB, abdominal pain or bloating. I discussed her CT findings showing possible peritoneal carcinomatosis. no visceral lesions.
Vital Signs:
Vital Signs
Temp Pulse Resp BP Pulse Ox
98.1 F 57 16 134/86 96
01/03/24 07:29 01/03/24 07:29 01/03/24 07:29 01/03/24 07:29 01/03/24 10:00
Lab Results:
Laboratory Data
WBC 7.6 10^3/uL (4.8-10.8) 01/02/24 06:40
Hgb 10.2 g/dL (12.0-16.0) L 01/02/24 06:40
Plt Count 408 10^3/uL (130-400) H 01/02/24 06:40
eGFR > 60.00 01/03/24 06:15
Physical Exam
HEENT: No Jaundice
Cardiology: Normal Sinus Rhythm
Pulmonary: Other (decreased right mid to base BS)
GI: Soft; No Distended
Extremities: No Edema
Neuro: Non Focal
Review of Systems
Review of Systems
Respiratory: Denies Dyspnea or Cough
Gastrointestinal: Reports Other (no abdominal pain or bloating); Denies Nausea/Vomiting
Neurological: Denies Headache
[2024-01-03 15:52] VITALS: BP 129/85
== END 2024-01-03 18:11 | DRG 175 ==
LOC: 3 WEST ACU 19:19
PROVIDERS: Clinical Nurse Specialist Family Health; Internal Medicine; Radiology Vascular & Interventional Radiology; Registered Nurse; ADMITTING PHYSICIAN Student in an Organized Health Care Education/Training Program; ATTENDING PHYSICIAN Hospitalist; CONSULT PHYSICIAN Internal Medicine Hematology & Oncology; CONSULT PHYSICIAN Internal Medicine Pulmonary Disease; EMERGENCY PHYSICIAN Emergency Medicine; FAMILY PHYSICIAN Nurse Practitioner Primary Care
PROC: 0W9B3ZX Drainage of Left Pleural Cavity, Percutaneous Approach, Diagnostic (ICD-10-PCS; 2023-12-16)
DX: I26.99 Other pulmonary embolism without acute cor pulmonale (principal); J18.9 Pneumonia, unspecified organism; J91.0 Malignant pleural effusion; F02.83 Dementia in other diseases classified elsewhere, unspecified severity, with mood disturbance; G30.9 Alzheimer's disease, unspecified; F32.A Depression, unspecified; E66.9 Obesity, unspecified; E03.9 Hypothyroidism, unspecified; M11.231 Other chondrocalcinosis, right wrist; M10.9 Gout, unspecified; R06.89 Other abnormalities of breathing; Z68.33 Body mass index [BMI] 33.0-33.9, adult
CPT/HCPCS: 88305; 32555; 71045; 71046; 71275; 74177; 74230; 76604; 80048; 80053; 82945; 82962; 83036; 83615; 83735; 83880; 83986; 84100; 84145; 84155; 84157; 84484; 85014; 85018; 85025; 85027; 87015; 87040; 87070; 87205; 87502; 87811; 88112; 88341; 88342; 88360; 89051; 92526; 92610; 92611; 93005; 93306; 93970; 94640; 96374; 97162; 97167; 97530; 97535; 99285; Q9967